=== PATIENT | female | born 1950 | race Caucasian/White ===

== ENCOUNTER 2020-01-05 19:44 | Observation (INO) | payer OTHER, SELFPAY ==
[2020-01-05] VITALS (8 sets, daily range): BP systolic 90–125; BP diastolic 56–81; PULSE 82–98; RESP 16–24; TEMP 37.5; O2SAT 88–96
--- NOTE | ~2020-01-05 | XR_ITS ---
EXAMINATION: XR chest 2V DATE: 01/05/2020 21:38 INDICATION: Midsternal chest pain and shortness of breath TECHNIQUE: AP and lateral views of the chest are obtained. COMPARISON: 12/10/2019 FINDINGS: The lungs are free of acute opacities. There is no pleural effusion or pneumothorax. The ca rdiomediastinal silhouette is normal. There is mild thoracic spondylosis. An implantable cardiac phyllis toring device is present in the subcutaneous tissues overlying the sternum. IMPRESSION: 1. No acute cardiopulmonary abnormality. Reviewed, dictated and finalized at location A. F CLERK
--- NOTE | ~2020-01-05 | CT_ITS ---
EXAMINATION: CTA chest PE abdomen pel DATE: 01/05/2020 22:28 INDICATION: Chest and epigastric abdominal pain TECHNIQUE: Computed tomography angiography (CTA) of the chest was performed with 100 mL Omnipaque-350 intravenous contrast timed to evaluate the pulmonary arteries. Subsequent postcontrast images of the abdomen and pelvis are obtained. Coronal maximum intensity projection 3D-reconstructions were create d by the technologist. The dose-length product (DLP) was 769.88 mGy-cm. Automated exposure control an d iterative reconstruction technique were employed. COMPARISON: None. FINDINGS: CTA CHEST: The pulmonary arteries are well-opacified. No pulmonary embolism is identified. Respirato ry motion artifact slightly limits the examination. Pulmonary nodules of the upper lobes measure up t o 5 mm. The lungs are free of acute opacities. There is no pleural effusion or pneumothorax. There is mild bilateral hilar and right paratracheal lymphadenopathy. ABDOMEN/PELVIS CT: The liver, spleen, pancreas, gallbladder, and adrenal glands are normal. Hypoatten uating lesions in the kidneys, measuring up to 4 mm on the right, are too small to characterize but l ikely represent cysts. There is an 11 mm nonobstructing stone of the right kidney lower pole. There i s a 7 mm stone in the right proximal ureter without significant hydroureteronephrosis. There is calci fied atherosclerosis of the aorta and many of the other arteries. No pathologically enlarged abdomina l or pelvic lymph nodes are identified. The appendix is normal. There is no free intraperitoneal gas or evidence of bowel obstruction. There is mild lumbar spondylosis. IMPRESSION: 1. No pulmonary embolism identified. 2. 7 mm stone in the right proximal ureter without significant hydroureteronephrosis. 3. Right nephrolithiasis. 4. Pulmonary nodules of the upper lobes measuring up to 5 mm. If the patient has no risk factors for malignancy, no further follow up is required. If there are risk factors for malignancy (i.e., histor y of smoking, asbestos or radiation exposure), consider followup CT in 12 months. 5. Mild bilateral hilar and right paratracheal lymphadenopathy, possibly reactive. Reviewed, dictated and finalized at location A. PATIONAL THERAPY ASSISTANT IMPRESSION: 1. No pulmonary embolism identified. 2. 7 mm stone in the right proximal ureter without significant hydroureteroneph rosis. 3. Right nephrolithiasis. 4. Pulmonary nodules of the upper lobes measuring up to 5 mm. If the patient casas s no risk factors for malignancy, no further follow up is required. If there a re risk factors for malignancy (i.e., history of smoking, asbestos or radiation exposure), consider followup CT in 12 months. 5. Mild bilateral hilar and right paratracheal lymphadenopathy, possibly reacti ve.
--- NOTE | 2020-01-05 20:11 | ECG_ITS ---
Measurements Intervals [place] Rate: 83 P: 105 [place]: 129 QRS: 163 QRSD: 130 T: 48 QT: 400 QTc: 472 Interpretive Statements SINUS RHYTHM ARM LEADS REVERSED RIGHT BUNDLE BRANCH BLOCK BASELINE WANDER- I, II ABNORMAL ECG Electronically Signed On 01-06-2020 10:48:03 [employer] MERCHANDISER by John Randolph D.O.
[2020-01-05] MEDS: ASPIRIN 81 MG CHEWABLE TABLET 324 MG PO (20:25)
--- NOTE | 2020-01-05 20:34 | ED.CHESTPAIN ---
HPI - Chest Pain General Chief Complaint: Chest Pain Stated Complaint: cp Time Seen by Provider: 01/05/20 20:34 Source: patient and family () Mode of arrival: EMS Limitations: no limitations History of Present Illness HPI narrative: A 69 y/o female presents to the ED, via EMS, with c/o intermittent nonradiating midsternal CP that she describes as twisting in character. Pt states that she woke up with the pain this morning. The pain will last for 5 minutes at a time and then resolve. Pt's last episode of the pain occurred 5-10 minutes ago. Pt denies a PSHx of a cholecystectomy and notes that her pain is worse when eating and drinking. Pt reports constipation and has been using a stool softener. Pt has a PMHx of an NM in July 2019 but her pain now feels different. Per , pt has been wearing a loop monitor for 3 months. Pt last saw her yacht builder at [facility] on (4 days ago). She reports SOB, a dry cough, and belching, but denies N/V, dizziness, fever, and a PSHx of a colonoscopy or an endoscopy. Pt is on ASA. Onset (ago): hour(s) Timing of current episode: episodic Pain location: other (midsternal) Pain radiation: none Related Data Home Medications Medication Instructions Recorded Confirmed albuterol sulfate 2 puff INHALATION BID 12/10/19 01/06/20 aspirin 81 mg PO DAILY 12/10/19 01/06/20 atorvastatin 80 mg PO 12/10/19 01/06/20 carbidopa-levodopa 1 tablet PO TID 12/10/19 01/06/20 clopidogrel [Plavix] 75 mg PO DAILY 12/10/19 01/06/20 diltiazem HCl 60 mg PO BID 12/10/19 01/06/20 fluoxetine 60 mg PO DAILY 12/10/19 01/06/20 fluticasone propionate 1 spray INTRANASAL DAILY 12/10/19 01/06/20 acetaminophen 1,000 mg PO BID PRN 12/11/19 01/06/20 magnesium oxide 400 mg PO BID 01/05/20 01/06/20 albuterol sulfate 2.5 mg INHALATION Q4H PRN 01/06/20 01/06/20 diazepam 10 mg PO HS 01/06/20 01/06/20 Allergies Allergy/AdvReac Type Severity Reaction Status Date / Time No Known Allergies Allergy Verified 10/24/19 20:49 Review of Systems Review of Systems: All systems reviewed & are unremarkable except as noted in HPI and below Constitutional: Constitutional: Denies fever(s) Comments: Denies: dizziness Cardiovascular: Cardiovascular: Reports chest pain (intermittent midsternal) Respiratory: Respiratory: Reports cough (dry) and Reports dyspnea Gastrointestinal: Gastrointestinal: Reports constipation, Denies nausea and Denies vomiting Comments: Reports: belching PMFSH Past Medical History Medical History Anxiety Cataracts, bilateral COPD (chronic obstructive pulmonary disease) CVA (cerebral vascular accident) 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, with the most recent CVA being July 2019 with right basal ganglia infarct and anterior limb of capsule the patient was hospitalized at [facility] and diagnosed with moyamoya Depression GERD (gastroesophageal reflux disease) Hyperlipidemia Kidney stone Parkinson disease Paroxysmal atrial fibrillation Normal EF of 63% noted on echo at time of her stroke Subarachnoid hemorrhage The patient had a fall while at [facility] 2 days after her CVA at which time she had 2 small traumatic subarachnoid hemorrhages right frontal, the patient was not started on Eliquis because her repeat CT demonstrated persistent subarachnoid hemorrhages on 08/25/2019 Urinary retention with incomplete bladder emptying UTI (urinary tract infection) Surgical History Surgical History H/O cardiac catheterization History of appendectomy History of loop recorder History of tonsillectomy History of total hysterectomy with bilateral salpingo-oophorectomy (BSO) Family History Family History Mother COPD (chronic obstructive pulmonary disease) Father COPD (chronic obstructive p
[2020-01-05 20:49] LABS: Basophils Percent Auto 0.3 % (0.2-1.2); Eosinophils Absolute Auto 0.4 K/mm3 (0-0.3); Eosinophils Percent Auto 6.3 % (0-4.4); Hematocrit 38.5 % (37.0-47.0); Immature Granulocyte Absolute 0.01 K/mm3 (0.00-0.031); Immature Granulocyte Percent A 0.2 % (0-0.5); Lymphocytes Absolute Auto 1.26 K/mm3 (0.9-3.2); Lymphocytes Percent Auto 20.5 % (18.3-44.2); Mean Corpuscular HGB Conc 31.2 g/dl (32-36); Mean Corpuscular Hemoglobin 29.2 pg (26-34); Mean Corpuscular Volume 93.7 fl (80-100); Mean Platelet Volume 9.8 fl (7.4-10.4); Monocytes Absolute Auto 0.6 K/mm3 (0.1-0.6); Monocytes Percent Auto 10.4 % (2.6-8.5); Neutrophils Absolute Auto 3.8 K/mm3 (1.3-6.7); Neutrophils Percent Auto 62.3 % (45.5-73.1); Platelet Count Result 239 k/mm3 (150-375); Red Blood Count 4.11 M/mm3 (4.2-5.4); Red Cell Distribution Width 13.6 % (11.5-14.5); White Blood Count 6.2 K/mm3 (4.5-10.0)
[2020-01-05 20:52] LABS: Base Excess ABG 0.4 mEq/l (+/-2.0); Fractional Inspired Oxygen 30 %; HCO3 ABG 24.6 mEq/l (22.0-26.0); Methemoglobin ABG 0.2 %THb (0-1.5); Oxygen Content ABG 17.1 %vol (16.0-22.0); Oxygen Saturation ABG 96.4 % (95.0-100.0); Oxyhemoglobin 95.6 % THb (90.0-100.0); PCO2 ABG 38.2 mmHg (35.0-45.0); PO2 FiO2 Ratio Arterial Blood 2.73 %; Reduced Hemoglobin 4.2 %THb (0-5.0); Total Hemoglobin 12.7 g/dL (12.0-18.0); pH ABG 7.427 (7.350-7.450)
[2020-01-05 20:54] LABS: Device NASAL CANNULA; Liters per Minute 2.5 LPM; Modified Allen's Test Pass; Site Drawn RIGHT RADIAL
[2020-01-05 21:00] LABS: Prothrombin Time 12.6 Seconds (11.1-14.7)
[2020-01-05 21:01] LABS: Partial Thromboplastin Time 25.8 SECONDS (22.3-36.8)
[2020-01-05 21:02] LABS: Lactic Acid Reflex 0.8 mmol/L (0.7-2.1)
[2020-01-05 21:03] LABS: Blood Urea Nitrogen 13 mg/dL (7-17); Calcium 8.9 mg/dL (8.4-10.2); Carbon Dioxide 24 mmol/L (22-30); Chloride 102 mmol/L (98-107); Estimated CRCL calculation 86 ml/min; Estimated Glomerular Filt Rate > 60; Glucose 108 mg/dL (65-105); Potassium 3.8 mmol/L (3.4-5.0); Sodium 139 mmol/L (137-145)
[2020-01-05] MEDS: IPRATROPIUM BR 0.02% INH SOLN 0.5 MG/2.5 ML VIAL INHALATION (21:07)
[2020-01-05] MEDS: ALBUTEROL SULFATE NEB 2.5 MG/0.5 ML INH 5 MG INHALATION (21:07)
[2020-01-05] MEDS: PANTOPRAZOLE SODIUM IV 40 MG VIAL IV PUSH (21:13)
[2020-01-05 21:15] LABS: Troponin I < 0.012 ng/mL (0.000-0.034)
[2020-01-05 21:31] LABS: Alanine Aminotransferase 18 U/L (4-35); Alkaline Phosphatase 85 U/L (38-126); Aspartate Amino Transferase 19 U/L (14-36); Bilirubin,Total 0.3 mg/dL (0.2-1.3); Lipase 248 U/L (23-300)
[2020-01-05] MEDS: BELLADONNA ALK/PHENOB ELIX 10 ML, MAG HYDROX/ALUMINUM HYD/SIMETH 30 ML, LIDOCAINE HCL 2... PO (23:32)
[2020-01-05 23:48] LABS: Troponin I < 0.012 ng/mL (0.000-0.034)
[2020-01-06] VITALS (15 sets, daily range): BP systolic 111–129; BP diastolic 47–76; PULSE 76–113; RESP 16–20; TEMP 36.2–36.6; O2SAT 93–100; BMI 28.0
--- NOTE | 2020-01-06 00:27 | ADMGEN ---
This patient, Miracle Castro, was admitted to IMU Room 200-01. Patient/family oriented to hospital policies and general routines including ID bracelet, bed and alarms, visiting hours, pain management, procedures, bathroom and other care routines, personal items, smoking policy, room service/diet, and visiting hours. Valuables list has been completed. Information on how to activate the Rapid Response Team has been discussed. Patient/Family are encouraged to report perceived risks to care and to ask questions if they do not understand what they are told or what they should do.
[2020-01-06] MEDS: IPRATROPIUM BR 0.02% INH SOLN 0.5 MG/2.5 ML VIAL INHALATION ×3 (01:37→14:18)
[2020-01-06] MEDS: ALBUTEROL SULFATE NEB 2.5 MG/0.5 ML INH 5 MG INHALATION ×3 (01:37→14:18)
[2020-01-06 02:51] LABS: Troponin I < 0.012 ng/mL (0.000-0.034)
--- NOTE | 2020-01-06 06:14 | PM.IMHP ---
H&P: HPI History of Present Illness Chief complaint: chest pain Narrative: Miracle Castro is a 69 year old female admitted with deep mid sternal chest pain 09/04. Pt associates the chest pain with belching and the pain went up her esophagus. Pt denies any cough, fever or wheezes or heart palpitation, Chest pain is resolved now. Pt sees cardiology in [facility]. Pt has a past medical history of CVA, COPD and paroxysmal atrial fibrillation. Pt saw her couturiere 4 days ago states had a similar chest pain on the day but thought it would go away. Pt had recently had a loop recorder on for investigation of heart arrthymia. Pt had a CT chest and abdomen- which showed no pE, 7 mm stone in the right proximal ureter without significant hydroureteronephrosis. 3. Right nephrolithiasis. 4. Pulmonary nodules of the upper lobes measuring up to 5 mm. 5. Reactive lymphadenopathy. EKG shows NSR. troponin x2 is negative. Review of Systems Review of Systems: All systems reviewed & are unremarkable except as noted in HPI and below Cardiovascular: Cardiovascular: Reports chest pain Respiratory: Respiratory: Denies chest congestion, Denies cough, Denies excessive phlegm production, Denies dyspnea and Denies wheezing Gastrointestinal: Gastrointestinal: Reports excessive flatus and Reports dyspepsia Genitourinary: Genitourinary: Denies no additional female genitourinary complaints Neurologic: Denies system reviewed and no additional complaints, except as documented Psychiatric: Psychiatric: Reports anxiety PMFSH Past Medical History Medical History Anxiety Cataracts, bilateral COPD (chronic obstructive pulmonary disease) CVA (cerebral vascular accident) 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, with the most recent CVA being July 2019 with right basal ganglia infarct and anterior limb of capsule the patient was hospitalized at [facility] and diagnosed with moyamoya Depression GERD (gastroesophageal reflux disease) Hyperlipidemia Kidney stone Parkinson disease Paroxysmal atrial fibrillation Normal EF of 63% noted on echo at time of her stroke Subarachnoid hemorrhage The patient had a fall while at [facility] 2 days after her CVA at which time she had 2 small traumatic subarachnoid hemorrhages right frontal, the patient was not started on Eliquis because her repeat CT demonstrated persistent subarachnoid hemorrhages on 08/25/2019 Urinary retention with incomplete bladder emptying UTI (urinary tract infection) Surgical History Surgical History H/O cardiac catheterization History of appendectomy History of loop recorder History of tonsillectomy History of total hysterectomy with bilateral salpingo-oophorectomy (BSO) Family History Family History Mother COPD (chronic obstructive pulmonary disease) Father COPD (chronic obstructive pulmonary disease) Sibling Acute myocardial infarction Social History Social History Social History: Code status: Full code per EMR Smoking packs per day: 1 Smoking cigarettes per day: 20.0 Years smoked: 52 Smoking pack-years: 52.00 Smoking status: Former smoker Tobacco type: cigarettes Second hand tobacco smoke exposure: No Smoking end date: 08/15/19 Alcohol intake: never Substance use: never Substance use type: does not use Additional living arrangements comments: Since her stroke her moved back into the house with her to take care of her. She ambulates with a walker at all times. 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
--- NOTE | 2020-01-09 16:55 | PM.DS ---
DS: Diagnosis Admitting Diagnosis Admitting Diagnosis: Chest pain, unspecified Discharge Diagnosis (1) Chest pain: Qualifiers: Chest pain type: unspecified Qualified Code(s): R07.9 - Chest pain, unspecified Code(s): R07.9 - Chest pain, unspecified Status: Acute Assessment and Plan: . Appeared to be more GERD related pt is on iv protonix, maybe discharged on PPI for GERD symptoms Serial troponins were negative and CTA of the chest revealed no emboli (2) Paroxysmal atrial fibrillation: Code(s): I48.0 - Paroxysmal atrial fibrillation Status: Acute Assessment and Plan: Pt is on telemetry, doing well. Remained in sinus rhythm and will continue on her diltiazem (3) COPD (chronic obstructive pulmonary disease): Code(s): J44.9 - Chronic obstructive pulmonary disease, unspecified Status: Acute Assessment and Plan: Chronic and stable continue pts inhalers DS: Summary Hospital Course Hospital Course: 61-year-old white female with history of paroxysmal atrial fib admitted with epigastric type pain and felt she should be observed for possible cardiac issue. Troponins were negative and CTA of the chest revealed no emboli. She was discharged home on Protonix PPI to follow up with her primary care Time Spent with Patient Time attestation: Total time spent providing and/or coordinating discharge services: 35 minutes Exam Narrative: Exam Narrative: Condition on discharge Blood pressure 124/76 pulse is 76 afebrile Lungs clear CV regular rate rhythm Abdomen soft nontender Extremities without edema Ambulating without assistance Discharge Plan Discharge Attending physician on discharge: Ephraim Woods Consulting providers: John Randolph ; Delbert Harrington Discharging Clinician: Ephraim Woods Patient Disposition: Home, Self-Care Activity: as tolerated Diet: low sodium and low cholesterol Patient Instructions: Pain Management (DC) Stand Alone Forms: General Discharge Information Follow-up/Referrals: UNKNOWN,DOCTOR [Non-Staff] - 1 Week (see primary physician and business operations consultant) Discharge Medications: New pantoprazole [Protonix] 40 mg tablet,delayed release (DR/EC) 40 mg PO QAM 42 Days Qty: 42 RF: 0 Continued atorvastatin 80 mg tablet 80 mg PO HS RF: 0 aspirin 81 mg tablet,delayed release (DR/EC) 81 mg PO DAILY RF: 0 albuterol sulfate 90 mcg/actuation HFA aerosol inhaler 2 puff INHALATION BID RF: 0 carbidopa-levodopa 25-100 mg tablet 1 tablet PO TID RF: 0 fluoxetine 20 mg capsule 60 mg PO DAILY RF: 0 fluticasone propionate 50 mcg/actuation spray,suspension 1 spray INTRANASAL DAILY RF: 0 clopidogrel [Plavix] 75 mg tablet 75 mg PO DAILY RF: 0 diltiazem HCl 60 mg Capsule,Extended Release 12 Hr 60 mg PO BID RF: 0 acetaminophen 500 mg Tablet 1,000 mg PO BID PRN (Reason: Pain) RF: 0 melatonin 3 mg Tablet 3 mg PO HS Qty: 30 RF: 0 sodium chloride [Saline Mist] 0.65 % Aerosol,[place] 1 spray intranasal Q6HR PRN (Reason: Congestion) Qty: 15 RF: 0 magnesium oxide 400 mg (241.3 mg magnesium) tablet 400 mg PO BID RF: 0 albuterol sulfate 2.5 mg /3 mL (0.083 %) Solution For Nebulization 2.5 mg INHALATION Q4H PRN (Reason: Shortness Of Breath) RF: 0 diazepam 10 mg Tablet 10 mg PO HS RF: 0 Date of admission: 01/05/20 23:26 Primary Care Provider: RodolfoIrene Admitting Provider: Janae Balbuena Discharge Date/Time: 01/06/20 14:30 Attending physician on admission: Ephraim Woods Condition: Stable Quality VTE Prophylaxis VTE prophylaxis: mechanical ordered
== END 2020-01-06 14:30 | disposition home or self-care (01) ==
LOC: ANHED 23:31 → ANHIMU 01-06 00:56
PROVIDERS: Emergency Medicine; Admitting Provider Family Medicine; Emergency Provider General Practice; PCP Internal Medicine Gastroenterology; Visit Provider Internal Medicine
DX: R07.9 Chest pain, unspecified (principal); I48.0 Paroxysmal atrial fibrillation; J44.1 Chronic obstructive pulmonary disease with (acute) exacerbation; N20.0 Calculus of kidney; F41.9 Anxiety disorder, unspecified; F32.9 Major depressive disorder, single episode, unspecified; E78.5 Hyperlipidemia, unspecified; G20 Parkinson's disease; R33.8 Other retention of urine; K21.9 Gastro-esophageal reflux disease without esophagitis; Z79.82 Long term (current) use of aspirin; Z79.899 Other long term (current) drug therapy; Z86.73 Personal history of transient ischemic attack (TIA), and cerebral infarction without residual deficits; Z86.79 Personal history of other diseases of the circulatory system; Z87.891 Personal history of nicotine dependence
CPT/HCPCS: 36415; 36600; 71046; 71275; 74177; 80048; 80076; 82375; 82805; 83050; 83605; 83690; 84484; 85025; 85610; 85730; 93005; 94640; 96374; 96375; 99285; A9270; C9113; G0378; G0379; J0131; Q9967

== ENCOUNTER 2020-02-04 14:30 | Emergency (ER) | payer OTHER, SELFPAY ==
--- NOTE | ~2020-02-04 | XR_ITS ---
XR chest 1V portable 02/04/2020 15:16 Indication: Slurred speech. Shortness of breath. History of CVA. Procedure: AP portable chest Comparison: Comparison to multiple prior studies sequentially, with oldest reviewed study dated 08/23. Findings: Heart size normal. No focal air space disease, pulmonary edema, pleural effusion or suspect ed pneumothorax. Impression: 1: No acute cardiopulmonary disease. Reviewed, dictated and finalized at location A. Impression: 1: No acute cardiopulmonary disease.
--- NOTE | ~2020-02-04 | CT_ITS ---
EXAMINATION: CTA brain carotid EXAM DATE: 02/04/2020 15:36 INDICATION: Slurred speech, right facial hemiparesis. TECHNIQUE: Spiral CTA of the carotid arteries was performed with intravenous injection 100 cc of Omn ipaque 350. Axial, coronal, sagittal reformatted images reviewed. Additional reformatted images crea daxa on dedicated 3-D workstation. NASCET comparable standard used to assess the degree of arterial s tenosis. Spiral CT angiogram cerebral arteries performed with the same intravenous injection of cont rast. Source images of the brain CTA transferred to dedicated workstation for 3-D rotational image cr eation. Coronal, sagittal maximum intensity pixel images also reviewed. The dose-length product (DL P) for this examination was 1179.63 mGy-cm. The exposure was tailored according to patient size, an d iterative reconstruction (ASIR) was used as additional dose reduction technique. There is no prio r study for comparison. FINDINGS: There is minimal left carotid bulb arterial sclerosis with 0% stenosis bilaterally. Mild bi lateral carotid siphon arterial sclerosis without stenosis. Multiple regions of proximal cerebral art brandie narrowings from atherosclerosis, with completely occluded or severely stenotic left M1 segment. T here is corresponding decreased arborization of left M1 temporal branches compared to contralateral s michael. The right anterior cerebral artery is predominantly supplied through the anterior communicating artery. There is no carotid or vertebral basilar arterial dissection or fibromuscular dysplasia. The re are no cerebral artery aneurysms. The sagittal, transverse and sigmoid sinuses enhance normally, n o venous sinus thrombosis. Internal cerebral veins also enhance normally. Age-related intracranial fi ndings. Old caudate, basal ganglia infarctions. Cataract surgery. Respiratory motion, but small sever al small pulmonary nodules identified could be infectious or postinfectious. IMPRESSION: 1. Nonopacified left M1 segment, either completely occluded or severely stenotic with decreased temp oral arborization distally. Uncertain whether or not this is acute or chronic finding. 2. Moderate scattered proximal cerebral arterial atherosclerosis. 3. Old bilateral caudate, basal ganglia infarctions. 4. No cervical arterial dissection or cerebral artery aneurysm. Bilateral carotid 0% stenosis. 5. Some small apical pulmonary nodules probably infectious or postinfectious. I discussed left M1 finding with Dr. Damaris Chairez MD at 02/04/2020 15:55 CDT. Reviewed, dictated and finalized at location B. IMPRESSION: 1. Nonopacified left M1 segment, either completely occluded or severely stenot ic with decreased temporal arborization distally. Uncertain whether or not this is acute or chronic finding. 2. Moderate scattered proximal cerebral arterial atherosclerosis. 3. Old bilateral caudate, basal ganglia infarctions. 4. No cervical arterial dissection or cerebral artery aneurysm. Bilateral kaba tid 0% stenosis. 5. Some small apical pulmonary nodules probably infectious or postinfectious. I discussed left M1 finding with Dr. Damaris Chairez MD at 02/04/2020 15:55 CDT.
--- NOTE | ~2020-02-04 | CT_ITS ---
EXAMINATION: CT brain wo con DATE: 02/04/2020 14:41 INDICATION: Slurred speech, right facial droop, difficulty walking. Dizziness. Code. TECHNIQUE: Computed tomography (CT) of the head was performed without intravenous contrast. The mA wa s adjusted according to patient size. Iterative reconstruction technique was employed. Exam dose: 52 9.67 mGy-cm total exam DLP. COMPARISON: 08/25/2019 CT brain FINDINGS: There is a prominent right basal ganglia old infarct, involving the adjacent anterior limb of the right internal capsule. Chronic infarcts of the left basal ganglia and anterior limb of left i nternal capsule.. No intracranial mass lesion or hemorrhage is evident. Recent cerebrovascular accident is not evident, but CT is not sensitive for detection of hyperacute ischemic infarct. No intracranial mass lesion or hemorrhage, midline shift or mass effects. There is preferential frontal cortical cerebral atrophy. There is cerebral atherosclerotic calcification involving the carotid siphons. There is nonspecific d iminished attenuation of the cerebral white matter, likely due to chronic small vessel ischemic baker es. No subdural or epidural hematoma is detected. No skull fracture or bone destruction is evident. Left mastoid air cells and included paranasal sinus es are unremarkable. The right mastoid air cells are not well-developed. IMPRESSION: Old bilateral basal ganglia and anterior limb internal capsule infarcts Cerebral atherosclerosis and chronic small vessel ischemic changes of the cerebral white matter Cerebral atrophy affecting particularly the frontal lobes Dr. Venegas telephoned the report to emergency room physician Dr. Chairez on 02/04/2020 at 1352 hours Reviewed, dictated and finalized at Location A. Reviewed, dictated and finalized at location A. IMPRESSION: Old bilateral basal ganglia and anterior limb internal capsule inf arcts Cerebral atherosclerosis and chronic small vessel ischemic changes of the cereb ral white matter Cerebral atrophy affecting particularly the frontal lobes Dr. Venegas telephoned the report to emergency room physician Dr. Chairez on 02/04/20 20 at 1352 hours
--- NOTE | 2020-02-04 14:33 | ECG_ITS ---
Measurements Intervals [place] Rate: 53 P: 93 AL: 139 QRS: 135 QRSD: 141 T: 52 QT: 459 QTc: 432 Interpretive Statements SINUS BRADYCARDIA ARM LEADS REVERSED RIGHT BUNDLE BRANCH BLOCK BASELINE WANDER- III, AVF, V2 ABNORMAL ECG Electronically Signed On 02-04-2020 14:56:33 CDT by John Randolph D.O.
[2020-02-04 14:42] VITALS: BP 127/46; PULSE 56; RESP 17; O2SAT 97
[2020-02-04 14:50] VITALS: TEMP 36.6
[2020-02-04 14:54] LABS: Basophils Absolute Auto 0.1 K/mm3 (0.0-0.1); Basophils Percent Auto 0.7 % (0.2-1.2); Eosinophils Absolute Auto 0.3 K/mm3 (0-0.3); Eosinophils Percent Auto 4.6 % (0-4.4); Hematocrit 39.2 % (37.0-47.0); Hemoglobin 12.2 g/dL (12.0-15.0); Immature Granulocyte Absolute 0.02 K/mm3 (0.00-0.031); Immature Granulocyte Percent A 0.3 % (0-0.5); Lymphocytes Absolute Auto 1.59 K/mm3 (0.9-3.2); Mean Corpuscular HGB Conc 31.1 g/dl (32-36); Mean Corpuscular Hemoglobin 28.6 pg (26-34); Mean Corpuscular Volume 91.8 fl (80-100); Mean Platelet Volume 10.3 fl (7.4-10.4); Monocytes Absolute Auto 0.6 K/mm3 (0.1-0.6); Monocytes Percent Auto 8.3 % (2.6-8.5); Neutrophils Absolute Auto 4.7 K/mm3 (1.3-6.7); Neutrophils Percent Auto 64.1 % (45.5-73.1); Platelet Count Result 223 k/mm3 (150-375); Red Blood Count 4.27 M/mm3 (4.2-5.4); Red Cell Distribution Width 13.3 % (11.5-14.5); White Blood Count 7.2 K/mm3 (4.5-10.0)
[2020-02-04 15:04] LABS: INR 1.1; Prothrombin Time 13.4 Seconds (11.1-14.7)
[2020-02-04 15:05] LABS: Partial Thromboplastin Time 27.2 SECONDS (22.3-36.8)
--- NOTE | 2020-02-04 15:05 | ED.NEUROSD ---
HPI - Neuro Symptoms/Deficit General Chief Complaint: Neuro Symptoms/Deficit Stated Complaint: CVA symptoms Time Seen by Provider: 02/04/20 14:51 Source: patient Mode of arrival: ambulatory Limitations: no limitations History of Present Illness HPI Narrative: Pt is a 69 y/o female who has a H/o CVA, that presents to the ED with c/o slurred speech, right facial drooping, and unsteady gait that was noticed 30 minutes ago. Pt's spouse states that was in the middle of speech therapy when he noticed her Sx. He brought her in the ED to see if she was having another stoke. Pt had a stroke on 08/14/19 and she has residual lt-sided weakness. She was at [facility] for 1 week and was in rehab for 2 weeks. Her neurologist is Dr. Hernandez. Per spouse, pt's speech is back to normal. Pt reports SOB and weakness, but she denies numbness/tingling to her face. She had half of an egg breakfast sandwich this morning. She normally uses a walker to get around. Pt quit smoking after her last stroke and she denies drinking EtOH. Pt has a loop recorder and takes ASA 81mg daily. Onset (ago): minute(s) (30) Time: 14:20 Timing confirmed by: spouse Location: speech and right face History of same: Yes Severity: similar to previous episodes Relieving factors: time Context: sudden onset On Anticoagulants: Yes (ASA 81mg) Associated symptoms: shortness of breath, weakness and other (unsteady gait) Related Data Home Medications Medication Instructions Recorded Confirmed albuterol sulfate 2 puff INHALATION BID 12/10/19 01/06/20 aspirin 81 mg PO DAILY 12/10/19 01/06/20 atorvastatin 80 mg PO HS 12/10/19 01/06/20 carbidopa-levodopa 1 tablet PO TID 12/10/19 01/06/20 clopidogrel [Plavix] 75 mg PO DAILY 12/10/19 01/06/20 diltiazem HCl 60 mg PO BID 12/10/19 01/06/20 fluoxetine 60 mg PO DAILY 12/10/19 01/06/20 fluticasone propionate 1 spray INTRANASAL DAILY 12/10/19 01/06/20 acetaminophen 1,000 mg PO BID PRN 12/11/19 01/06/20 magnesium oxide 400 mg PO BID 01/05/20 01/06/20 albuterol sulfate 2.5 mg INHALATION Q4H PRN 01/06/20 01/06/20 diazepam 10 mg PO HS 01/06/20 01/06/20 Allergies Allergy/AdvReac Type Severity Reaction Status Date / Time No Known Allergies Allergy Verified 10/24/19 20:49 Review of Systems Review of Systems: All systems reviewed & are unremarkable except as noted in HPI and below Constitutional: Constitutional: Reports weakness Respiratory: Respiratory: Reports dyspnea Neurologic: Reports Abnormal speech present (slurred), Reports abnormal gait, Denies numbness, Denies tingling and Reports other (rt facial droop) [facility] Past Medical History Medical History Anxiety Cataracts, bilateral COPD (chronic obstructive pulmonary disease) CVA (cerebral vascular accident) 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, with the most recent CVA being July 2019 with right basal ganglia infarct and anterior limb of capsule the patient was hospitalized at [facility] and diagnosed with moyamoya Depression GERD (gastroesophageal reflux disease) Hyperlipidemia Kidney stone Parkinson disease Paroxysmal atrial fibrillation Normal EF of 63% noted on echo at time of her stroke Subarachnoid hemorrhage The patient had a fall while at [facility] 2 days after her CVA at which time she had 2 small traumatic subarachnoid hemorrhages right frontal, the patient was not started on Eliquis because her repeat CT demonstrated persistent subarachnoid hemorrhages on 08/25/2019 Urinary retention with incomplete bladder emptying UTI (urinary tract infection) Surgical History Surgical History H/O cardiac catheterization History of appendectomy History of loop recorder History of tonsillectomy History of total hysterectomy with bilateral salpingo-oophorectomy (BSO) Social History Social History (Reviewed 02/04/20 @ 15:56 by Dorian
[2020-02-04 15:06] LABS: Blood Urea Nitrogen 14 mg/dL (7-17); Calcium 9.1 mg/dL (8.4-10.2); Carbon Dioxide 28 mmol/L (22-30); Chloride 104 mmol/L (98-107); Estimated CRCL calculation 74 ml/min; Estimated Glomerular Filt Rate > 60; Glucose 104 mg/dL (65-105); Potassium 3.9 mmol/L (3.4-5.0); Sodium 140 mmol/L (137-145)
[2020-02-04 15:19] LABS: Troponin I < 0.012 ng/mL (0.000-0.034)
[2020-02-04 17:05] VITALS: BP 139/94; PULSE 46; RESP 16; O2SAT 97
[2020-02-04] MEDS: ALBUTEROL SULFATE NEB 2.5 MG/0.5 ML INH 5 MG INHALATION (18:00)
[2020-02-04 19:21] LABS: Glucose Point of Care 97 (65-105)
== END 2020-02-04 18:40 | disposition short-term general hospital (02) ==
PROVIDERS: Emergency Medicine; Emergency Provider Emergency Medicine
DX: I63.9 Cerebral infarction, unspecified (principal); J44.9 Chronic obstructive pulmonary disease, unspecified; E78.5 Hyperlipidemia, unspecified; K21.9 Gastro-esophageal reflux disease without esophagitis; G20 Parkinson's disease; I48.0 Paroxysmal atrial fibrillation; I69.354 Hemiplegia and hemiparesis following cerebral infarction affecting left non-dominant side; F41.9 Anxiety disorder, unspecified; F32.9 Major depressive disorder, single episode, unspecified; Z79.82 Long term (current) use of aspirin; Z79.02 Long term (current) use of antithrombotics/antiplatelets; Z87.440 Personal history of urinary (tract) infections; Z87.442 Personal history of urinary calculi; Z87.891 Personal history of nicotine dependence; H26.9 Unspecified cataract; R00.1 Bradycardia, unspecified; I45.10 Unspecified right bundle-branch block; R29.702 NIHSS score 2
CPT/HCPCS: 36415; 70450; 70496; 70498; 71045; 80048; 82948; 84484; 85025; 85610; 85730; 93005; 99285; Q9967

== ENCOUNTER 2020-02-09 13:15 | Outpatient (RCR) | payer OTHER, SELFPAY ==
--- NOTE | 2020-01-20 14:46 | STOPEVAL ---
SPEECH THERAPY INITIAL EVALUATION; Thank you for referring this patient to [facility]. Upon completion of cognitive linguistic evaluation, it has been determined that pt would benefit from Speech Therapy x2 week 4 to improve the areas of memory, thought organization, auditory processing, and problem solving. Please review, sign, date and return this plan of care YISEL. I agree with and certify that the following plan of care is medically necessary. Referring Physician Date Admitting Provider: Attending Provider: Patricia Giron, MYRNA Referring Provider: STERLING Outpatient Evaluation Start: 01/20/20 13:37 Freq: Status: Active Protocol: Document 01/20/20 13:30 BECHERERT (Rec: 01/20/20 14:46 BECHERERT [email or web address]) Therapy Assessment Status Assessment Status Assessment Status Evaluation Outpatient Past Medical History Neurological History Hx Cerebrovascular Accident (CVA) Yes: Aug 14, 2019 Hx Parkinson's Disease Yes Cardiovascular History Hx Cardiac Arrhythmia Yes Hx Coronary Artery Disease Yes: coronary arteriosclerosis Hx Other Cardiac Disorders Yes: cardiac arrhythmia Respiratory History Hx Chronic Obstructive Pulmonary Disease Yes (COPD) Gastrointestinal History Hx Esophageal Disorders Yes Hx Gastroesophageal Reflux Disease Yes Genitourinary History Hx Urinary Tract Infection Yes Hx Other Genitourinary Disorders Yes Musculoskeletal History Hx Back Pain Yes Reproductive History Hx Hysterectomy Yes Psychosocial History Hx Psychiatric Treatment Yes: Sees psychiatrist Other History Hx Implanted Device Yes: loop recorder Evaluation Information Problem Diagnosis history of CVA Onset July 2019 Additional Evaluation Detail The pt is but lives alone; she and her live apart but he assists her with medication management, transportation, shopping. She also has hired assist for laundry, cleaning, & money management. Subjective Information Miracle is here today several Query Text:As Reported By Patient/ months after CVA affecting Family cognitive linguistic function. She did rehab for 2 weeks and started outpatient therapy in October 2019. She then contracted pneumonia and has been in and out of the hospital. Prior Level of Function Activity Level (Last 3 Months) Functional Cognition (Planning, Shopping Needs Some Help , Taking Medications)
--- NOTE | 2020-01-20 15:22 | OTOPEVAL ---
OCCUPATIONAL THERAPY EVALUATION AND DISCHARGE REPORT 01/20/2020 Thank you for referring this patient to [facility]. As described below, no skilled OT is indicated at this time. Please review, sign, date and return this evaluation and discharge YISEL. I agree with and certify that the following plan of care is medically necessary. Referring Physician Date Referring Provider: Patricia Giron, PA *OT Outpatient Evaluation Start: 01/20/20 14:10 Freq: Status: Active Protocol: Document 01/20/20 14:10 ARLENE (Rec: 01/20/20 15:22 ARLENE [email or web address]) Therapy Assessment Status Assessment Status Assessment Status Evaluation Outpatient Past Medical History Neurological History Hx Cerebrovascular Accident (CVA) Yes: Aug 14, 2019 Hx Parkinson's Disease Yes Cardiovascular History Hx Cardiac Arrhythmia Yes Hx Coronary Artery Disease Yes: coronary arteriosclerosis Hx Other Cardiac Disorders Yes: cardiac arrhythmia Respiratory History Hx Chronic Obstructive Pulmonary Disease Yes (COPD) Gastrointestinal History Hx Esophageal Disorders Yes Hx Gastroesophageal Reflux Disease Yes Genitourinary History Hx Urinary Tract Infection Yes Hx Other Genitourinary Disorders Yes Musculoskeletal History Hx Back Pain Yes Reproductive History Hx Hysterectomy Yes Psychosocial History Hx Psychiatric Treatment Yes: Sees psychiatrist Other History Hx Implanted Device Yes: loop recorder Evaluation Information Problem Diagnosis s/p CVA Onset August 14, 2019 Subjective Information Miracle is here today several Query Text:As Reported By Patient/ months after CVA affecting the Family left sided strength. She did rehab for 2 weeks and started outpatient therapy in October 2019. She then contracted pneumonia and has been in and out of the hospital. Prior Level of Function Activity Level (Last 3 Months) Activity of Daily Living Ability Independent Cooking No Cleaning No Laundry No Shopping No Driving No Home Setting Home Type Apartment Environmental Barriers Elevator,Stairs, Greater than 4 Living Situation Alone Support Available Local Family Support Mobility Assistive Devices (Used Last 3 Walker, Wheeled Months) Bathroom Environment Tub/Shower, Curtain Bathing Equipment
--- NOTE | 2020-01-20 16:42 | PTOPEVAL ---
PHYSICAL THERAPY EVALUATION AND PLAN OF CARE Thank you for referring this patient to [facility]. Miracle will be seen in PT 2x/week for 4 weeks. Please review, sign, date and return this plan of care YISEL. I agree with and certify that the following plan of care is medically necessary. Referring Physician Date Attending Provider: Patricia Giron, PA Evaluation Outpatient Past Medical History Neurological History Hx Cerebrovascular Accident (CVA) Yes: Aug 14, 2019 Hx Parkinson's Disease Yes Cardiovascular History Hx Cardiac Arrhythmia Yes Hx Coronary Artery Disease Yes: coronary arteriosclerosis Hx Other Cardiac Disorders Yes: cardiac arrhythmia Respiratory History Hx Chronic Obstructive Pulmonary Disease Yes (COPD) Gastrointestinal History Hx Esophageal Disorders Yes Hx Gastroesophageal Reflux Disease Yes Genitourinary History Hx Urinary Tract Infection Yes Hx Other Genitourinary Disorders Yes Musculoskeletal History Hx Back Pain Yes Reproductive History Hx Hysterectomy Yes Psychosocial History Hx Psychiatric Treatment Yes: Sees phschiatrist Other History Hx Implanted Device Yes: loop recorder Evaluation Information Diagnosis history of CVA Onset July 2019 Additional Evaluation Detail 125/72; 78bpm Subjective Information Miracle is here today several Query Text:As Reported By Patient/ months after CVA affecting the Family left sided strength. She did rehab for 2 weeks and started outpatient therapy in October 2019. She then contracted pneumonia and has been in and out of the hospital. States she feels tired today. Would normally be using a walker, but forgot it today. Reports that she currently uses a shower chair, but would like to be able to get into and out of the bathtub to take a bath. Her friend reports that she will sometimes forget her walker and walk around the apartment. She would like to be able to walk with a cane again. Prior Level of Function Home Setting Home Type Apartment Environmental Barriers Elevator,Stairs, Greater than 4 Living Situation Alone Support Available Loc
--- NOTE | 2020-02-03 11:12 | PCSTNOTE ---
Due to scheduling conflicts, pt has not been seen x2/week. Pt only desires afternoon appointments which challenges the recommended x2/week.
--- NOTE | 2020-02-05 07:32 | PCSTNOTE ---
Upon leaving after session, the pt's spouse stated that she seemed weaker and her face seemed to have a droop. Pt stopped and rested and appeared more confused. Spouse feared she may be having a stroke. They were asked multiple times if an ambulance should be called for her. Spouse and pt declined. They were encouraged to go to the ER which her spouse stated they would do.
--- NOTE | 2020-02-06 11:16 | PCSTNOTE ---
Patient called & cancelled scheduled appointment this date due to having a TIA.]
--- NOTE | 2020-02-13 08:53 | PCPTNOTE ---
Patient called & cancelled scheduled appointment this date due to Covid 19.
--- NOTE | 2020-02-16 12:50 | PCSTNOTE ---
Patient did not show up for scheduled appointment this date.
--- NOTE | 2020-02-17 15:50 | PCPTNOTE ---
Patient called & cancelled scheduled appointment on 02/19/2020 due to COVID-19 precautions.
--- NOTE | 2020-03-08 13:29 | PCPTNOTE ---
PHYSICAL THERAPY DISCHARGE NOTIFICATION Attending Provider: Patricia Giron, PA Patient:Miracle Castro Date of :1950 Miracle cancelled her last remaining appointments due to COVID-19 precautions. We will be happy to work with her in the future, but at this time her chart will be discharged. The goals have not been assessed. Thank you for referring this patient to [facility]. Please review, sign, date and return this discharge summary YISEL. I have been updated about the patient's current status and I agree with discharge from the above service at this time. Referring Physician Date
== END 2020-03-09 08:33 | disposition home or self-care (01) ==
LOC: ANHPT 13:15
PROVIDERS: PCP Internal Medicine Gastroenterology; Visit Provider Physician Assistant
DX: Z86.73 Personal history of transient ischemic attack (TIA), and cerebral infarction without residual deficits (principal)
CPT/HCPCS: 96125; 97110; 97129; 97130; 97162; 97165

== ENCOUNTER 2020-08-27 14:00 | Outpatient (RCR) | payer OTHER, SELFPAY | END 2020-08-27 23:59 | disposition home or self-care (01) | LOC: ANHAUDIO 14:00 | PROVIDERS: PCP Internal Medicine Gastroenterology; Visit Provider Internal Medicine Gastroenterology | DX: Z46.1 Encounter for fitting and adjustment of hearing aid (principal) | CPT/HCPCS: 99199 ==

== ENCOUNTER 2020-10-01 12:13 | Observation (INO) | payer OTHER, SELFPAY ==
[2020-10-01] VITALS (19 sets, daily range): BP systolic 94–115; BP diastolic 46–67; PULSE 76–93; RESP 16–24; TEMP 36.1–36.7; O2SAT 95–100; BMI 30.3
--- NOTE | ~2020-10-01 | XR_ITS ---
EXAMINATION: XR retrograde pyelo w/stent RT DATE: 10/01/2020 07:55 INDICATION: Cystoscopy and retrograde right ureteral stent placement TECHNIQUE: A total of 28 fluoroscopic images of the abdomen and pelvis were obtained during procedure performed by Dr. Loza. Radiologist was not present for the imaging or procedure. The amount of fl uoroscopy time used during this procedure was 0.2 minutes. COMPARISON: CT dated 01/05/2020 FINDINGS: A larger stone is again seen projecting over the lower pole of the right kidney on the init ial image. A reported right ureteral stone is not definitively identified. Retrograde contrast inject ions into the right ureter and renal collecting system demonstrates irregular mucosal contour of the distal ureter which may reflect inflammation related to the reported stone. Subsequent images demonst rate a wire advanced into a superior calyx of the right kidney. Final image demonstrates the distal e nd of a ureteral stent with loops formed in the bladder. IMPRESSION: 1. Fluoroscopy utilized during right retrograde pyelogram and internal ureteral stent placement. 2. Large stone at the lower pole of the right kidney. Mucosal irregularity along the distal right ure ter which may reflect inflammation related to reported distal right ureteral stone which is not defin itively identified on the provided images. See procedure note for further detail. Reviewed, dictated and finalized at location A. NG EXAMINER IMPRESSION: 1. Fluoroscopy utilized during right retrograde pyelogram and internal ureteral stent placement. 2. Large stone at the lower pole of the right kidney. Mucosal irregularity sotero g the distal right ureter which may reflect inflammation related to reported di stal right ureteral stone which is not definitively identified on the provided images. See procedure note for further detail.
--- NOTE | ~2020-10-01 | XR_ITS ---
EXAMINATION: XR chest 1V portable INDICATION: Shortness of breath TECHNIQUE: Portable AP chest at 1539 hours COMPARISON: 02/04/2020 FINDINGS: The heart size is normal. There has been interval insertion of a dual lead pacemaker in the left chest wall. The lungs are free of acute opacities. There is no pleural effusion or pneumothorax . IMPRESSION: 1. No acute cardiopulmonary abnormality. 2. Interval pacemaker insertion. Reviewed, dictated and finalized at location A. SVERSE ABDOMINAL MUSCLE SURGEON
--- NOTE | 2020-10-01 04:16 | ECHO_ITS ---
Patient Info Name: Miracle Castro Age: 70 years : 1950 Gender: Female Ht: 62 in Wt: 166 lbs BSA: 1.84 m2 HR: 88 bpm BP: 111 / 53 mmHg Technical Quality: Good Exam Date: 10/01/2020 11:55 AM Exam Location: [facility] Patient Status: Inpatient Admit Date: 10/01/2020 Staff Ordering Physician: Erik Oconnell MD Bathhouse Keeper: Go Boateng RDCS, RT Attending Provider: Erik Oconnell MD Referring Physician: Emilio Loza MD; Exam Type: CA echo doppler color flow Study Info Indications I48.1 - Persistent atrial fibrillation Strain analysis performed. Complete two-dimensional, color flow and Doppler transthoracic echocardiogram is performed. Summary 1. Complete two-dimensional, color flow and Doppler transthoracic echocardiogram is performed. 2. Left ventricular chamber dimension is normal. 3. Left ventricular systolic function is normal, estimated at 55-60%. 4. The left ventricular diastolic function is grade III diastolic dysfunction. 5. E/e' 11 is mildly elevated. 6. Global longitudinal strain is abnormal at -14.0%. 7. Right ventricular systolic function is reduced with abnormal TAPSE at 1.5 cm. 8. There is mild to moderate mitral valve regurgitation. 9. There is trace tricuspid valve regurgitation. 10. Dilated inferior vena cava with >50% collapse upon inspiration consistent with elevated right atrial pressure, 10 mmHg. Left Ventricle E/e' 11 is mildly elevated. Global longitudinal strain is abnormal at -14.0%. Left ventricular chamber dimension is normal. Left ventricular systolic function is normal, estimated at 55-60%. The left ventricular diastolic function is grade III diastolic dysfunction. Right Ventricle Right ventricular systolic function is reduced with abnormal TAPSE at 1.5 cm. Right ventricular chamber dimension is not well visualized. Left Atria Left atrial chamber dimension is normal. Right Atria Right atrial chamber dimension is normal. Aortic Valve The aortic valve is not well visualized. Cannot determine number of aortic valve leaflets. There is no gross aortic valve stenosis. There is no aortic valve regurgitation. Pulmonic Valve There is no pulmonic regurgitation. Mitral Valve There is no mitral valve stenosis. There is mild to moderate mitral valve regurgitation. Tricuspid Valve There is trace tricuspid valve regurgitation. RVSP is not calculated due to an inadequate TR jet. Pericardium/Pleural There is no pericardial effusion. Inferior Vena Cava Dilated inferior vena cava with >50% collapse upon inspiration consistent with elevated right atrial pressure, 10 mmHg. Aorta The aortic root size at the sinus of Valsalva is normal. Left Ventricular Outflow Tract Name Value Normal LVOT 2D LVOT Diameter 1.9 cm LVOT Doppler LVOT Peak Gradient 2 mmHg LVOT Mean Gradient 1 mmHg LVOT VTI 15 cm LVOT VTI/AV VTI Ratio 0.5 LVOT Stroke Volume 41 ml LVOT CO 3.3
--- NOTE | 2020-10-01 04:24 | ADMGEN ---
This patient, Miracle Castro, was admitted to IMU Room 201-01. Patient/family oriented to hospital policies and general routines including ID bracelet, bed and alarms, visiting hours, pain management, procedures, bathroom and other care routines, personal items, smoking policy, room service/diet, and visiting hours. Information on how to activate the Rapid Response Team has been discussed. Patient/Family are encouraged to report perceived risks to care and to ask questions if they do not understand what they are told or what they should do.
[2020-10-01 05:33] LABS: Basophils Absolute Auto 0.1 K/mm3 (0.0-0.1); Basophils Percent Auto 0.5 % (0.2-1.2); Eosinophils Percent Auto 0.3 % (0-4.4); Hemoglobin 9.6 g/dL (12.0-15.0); Immature Granulocyte Absolute 0.03 K/mm3 (0.00-0.031); Immature Granulocyte Percent A 0.3 % (0-0.5); Lymphocytes Absolute Auto 2.94 K/mm3 (0.9-3.2); Lymphocytes Percent Auto 26.7 % (18.3-44.2); Mean Corpuscular Hemoglobin 24.5 pg (26-34); Mean Corpuscular Volume 79.1 fl (80-100); Monocytes Percent Auto 17.7 % (2.6-8.5); Neutrophils Percent Auto 54.5 % (45.5-73.1); Platelet Count Result 254 k/mm3 (150-375); Red Blood Count 3.92 M/mm3 (4.2-5.4); Red Cell Distribution Width 15.5 % (11.5-14.5)
[2020-10-01 05:43] LABS: Anion Gap 9 mmol/L (8-16); Blood Urea Nitrogen 17 mg/dL (7-17); Calcium 8.5 mg/dL (8.4-10.2); Carbon Dioxide 25 mmol/L (22-30); Chloride 105 mmol/L (98-107); Estimated CRCL calculation 62 ml/min; Estimated Glomerular Filt Rate > 60; Glucose 122 mg/dL (65-105); Magnesium 2.2 mg/dL (1.6-2.3); Potassium 3.6 mmol/L (3.4-5.0); Sodium 139 mmol/L (137-145)
[2020-10-01] MEDS: LACTATED RINGERS 1,000 ML 30 ML IV CONT (06:50)
--- NOTE | 2020-10-01 07:03 | WPDANESEPPF ---
Anes - Initial Pre Proc Eval Procedure: Operation Date: 10/01/20 07:30 Proposed Procedures p Cystoscopy, Right Stent Placement(Right) - Emilio Loza MD Date/Time: 10/01/20 07:03 Surgeon: Erik Oconnell MD Pre Op Diagnosis: Afib with RVR, renal stone Patient Data Age: 70 Gender: F Height: 1.57 m Weight: 75.3 kg Last Vital Signs Temp 36.2 C L 10/01/20 04:12 Pulse 86 10/01/20 06:03 Resp 18 10/01/20 04:12 BP 111/53 L 10/01/20 06:03 Pulse Ox 95 10/01/20 04:12 Allergies Allergy/AdvReac Type Severity Reaction Status Date / Time codeine Allergy Rash Verified 10/01/20 04:35 nitrofurantoin Allergy Unknown Verified 10/01/20 04:35 [From Macrobid] Home Medications Medication Instructions Recorded Confirmed Type albuterol sulfate 2 puff INHALATION Q4H PRN 12/10/19 10/01/20 History atorvastatin 80 mg PO HS 12/10/19 10/01/20 History carbidopa-levodopa 1 tablet PO TID 12/10/19 10/01/20 History clopidogrel [Plavix] 75 mg PO DAILY 12/10/19 10/01/20 History diltiazem HCl 60 mg PO TID 12/10/19 10/01/20 History fluoxetine 60 mg PO DAILY 12/10/19 10/01/20 History fluticasone propionate 1 spray INTRANASAL DAILY 12/10/19 10/01/20 History acetaminophen 1,000 mg PO BID PRN 12/11/19 10/01/20 History melatonin 3 mg PO HS #30 tablet 12/16/19 10/01/20 Rx sodium chloride [Saline Mist] 1 spray INTRANASAL Q6HR PRN #15 ml 12/16/19 10/01/20 Rx magnesium oxide 400 mg PO BID 01/05/20 10/01/20 History albuterol sulfate 2.5 mg INHALATION Q4H PRN 01/06/20 10/01/20 History diazepam 10 mg PO TID 01/06/20 10/01/20 History pantoprazole [Protonix] 40 mg PO QAM 42 Days #42 tablet 01/06/20 10/01/20 Rx cetirizine [Zyrtec] 10 mg PO DAILY 10/01/20 10/01/20 History tiotropium bromide [Spiriva with 18 mcg INHALATION DAILY 10/01/20 10/01/20 History HandiHaler] Laboratory Tests 10/01/20 10/01/20 10/01/20 04:55 04:55 04:55 WBC 11.0 K/mm3 H K/mm3 (4.5-10.0) RBC 3.92 M/mm3 L M/mm3 (4.2-5.4) Hgb 9.6 g/dL L g/dL (12.0-15.0) Hct 31.0 % L % (37.0-47.0) MCV 79.1 fl L fl (80-100) MCH 24.5 pg L pg (26-34) MCHC 31.0 g/dl L g/dl (32-36) RDW 15.5 % H % (11.5-14.5) Plt Count 254 k/mm3 k/mm3 (150-375) MPV 10.0 fl fl (7.4-10.4) Immature Gran % (Auto) 0.3 % % (0-0.5) Neut % (Auto) 54.5 % % (45.5-73.1) Lymph % (Auto) 26.7 % % (18.3-44.2) [place] % (Auto) 17.7 % H % (2.6-8.5) Eos % (Auto) 0.3 % % (0-4.4) Baso % (Auto) 0.5 % % (0.2-1.2) Lymph # (Auto) 2.94 K/mm3 K/mm3 (0.9-3.2) Marathon # (Auto) 2.0 K/mm3 H K/mm3 (0.1-0.6) Eos # (Auto) 0.0 K/mm3 K/mm3 (0-0.3) Baso # (Auto) 0.1 K/mm3 K/mm3 (0.0-0.1) Abs Immat Gran (auto) 0.03 K/mm3 K/mm3 (0.00-0.031) Absolute Neuts (auto) 6.0 K/mm3 K/mm3 (1.3-6.7) Absolute Nucleated RBC 0.0 K/mm3 K/mm3 (0.0-0.012) Nucleated RBC % 0.0 % % (0.0-0.2) Sodium 139 mmol/L mmol/L (137-145) Potassium 3.6 mmol/L mmol/L (3.4-5.0) Chloride 105 mmol/L mmol/L (98-107) Carbon Dioxide 25 mmol/L mmol/L (22-30) Anion Gap 9 mmol/L mmol/L (8-16) BUN 17 mg/dL mg/dL (7-17) Creatinine 0.70 mg/dL mg/dL (0.7-1.0) Estim Creat Clear Calc 62 ml/min ml/min Estimated GFR > 60 (59 - ) Glucose 122 mg/dL H mg/dL (65-105) Calcium 8.5 mg/dL mg/dL (8.4-10.2) Magnesium 2.2 mg/dL mg/dL (1.6-2.3) TSH (Reflex) 3.330 uIU/mL uIU/mL (0.465-4.68) Patient hx anesthesia problems: none Family hx anesthesia problems: none [facility] Past Medical History Medical History (Updated 02/06/20 @ 00:00 by Background Daemon) Anxiety Cataracts, bilateral COPD (chronic obstructive pulmonary disease) CVA (cerebral vascular accident)
--- NOTE | 2020-10-01 07:21 | WPDURCON ---
Assessment and Plan Assessment and plan (1) Ureteral stone: Code(s): N20.1 - Calculus of ureter Status: Acute Assessment and Plan: She is a 7 mm right distal ureteral stone. She be taken to the OR for cystoscopy and right ureteral stent placement. She understands I will not be removing the stone. She will need definitive stone management of both her distal stone and renal stone in the future. (2) Hydronephrosis: Code(s): N13.30 - Unspecified hydronephrosis Status: Acute Assessment and Plan: Due to the above (3) Right renal stone: Code(s): N20.0 - Calculus of kidney Status: Acute (4) Fever: Code(s): R50.9 - Fever, unspecified Status: Acute Assessment and Plan: Will be admitted postoperatively to the medicine service. Urine culture pending. Will need appropriate antibiotics tailored to urine culture results. Urology Consult Note HPI Date Seen: 10/01/20 Requesting Physician: Erik Oconnell MD Primary Care Provider: Irene BelloMD Consult Narrative Narrative: Miracle Castro is a 70 year old female she has a history of nephrolithiasis. She has a 1 week history of right lower quadrant pain. She had dysuria. She had nausea and vomiting. She had a temperature at home of 102.3. This prompted a visit to the emergency room at [facility]. A CT scan shows a 7 mm right distal ureteral stone as well as a 1 cm renal stone. There is hydronephrosis. She had some AFib with rapid ventricular rate. There is no urologist at [place]. She was transferred [place] for ureteral stent placement which could be done this morning on a urgent basis. Of note she had a CT scan done in December of 2019 here [place]. It showed the stone to be in the proximal ureter without hydronephrosis. She understands I will not be removing the stone today and I will be placing a ureteral stent. She agrees to proceed. Review of Systems Review of Systems: All systems reviewed & are unremarkable except as noted in HPI and below [facility] Past Medical History Medical History (Updated 10/01/20 @ 07:25 by Emilio Loza MD) Anxiety Cataracts, bilateral COPD (chronic obstructive pulmonary disease) CVA (cerebral vascular accident) 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, with the most recent CVA being July 2019 with right basal ganglia infarct and anterior limb of capsule the patient was hospitalized at [facility] and diagnosed with moyamoya Depression GERD (gastroesophageal reflux disease) Hyperlipidemia Kidney stone Parkinson disease Paroxysmal atrial fibrillation Normal EF of 63% noted on echo at time of her stroke Subarachnoid hemorrhage The patient had a fall while at [facility] 2 days after her CVA at which time she had 2 small traumatic subarachnoid hemorrhages right frontal, the patient was not started on Eliquis because her repeat CT demonstrated persistent subarachnoid hemorrhages on 08/25/2019 Urinary retention with incomplete bladder emptying UTI (urinary tract infection) Surgical History Surgical History H/O cardiac catheterization History of appendectomy History of loop recorder History of tonsillectomy History of total hysterectomy with bilateral salpingo-oophorectomy (BSO) Family History Family History (Updated 10/01/20 @ 04:16 by Medina Carmona RN) Mother COPD (chronic obstructive pulmonary disease) Father COPD (chronic obstructive pulmonary disease) Malignant neoplasm of prostate Sibling Acute myocardial infarction Cancer Social History Social History Social History: Code status: Full code per EMR Smoking packs per day: 1 Smoking cigarettes per day: 20.0 Years smoked: 20 Smoking pack-years: 20.00 Smoking status: Former smoker [place]
--- NOTE | 2020-10-01 07:26 | WPDHPUPDATE1 ---
History and Physical Update Update Date/Time: 10/01/20 07:26 History and Physical has been reviewed, including an updated exam of the patient. There are NO changes in the patient's condition. Risks, benefits, and alternatives have been discussed and questions answered. Patient agrees to proceed with procedure.
--- NOTE | 2020-10-01 07:53 | P.OP_ITS ---
Procedure Note - Detailed Date of procedure: 10/01/20 Pre-op diagnosis: Afib with RVR, renal stone Right distal ureteral stone Right renal stone Hydronephrosis Fever Post-op diagnosis: same Procedure performed: Cystoscopy, right retrograde pyelogram, right ureteral s tent. Description of procedure: This along with the ureteral stone. She was at another hospital. She was treated with antibiotics and transferred for urologic intervention. She has correctly identified informed consent was obtained. She from the operating room. She was given mac anesthesia. She was prepped and draped in a sterile fashion. She was in the dorsal lithotomy position. A time-out performed. Cystoscopy revealed a normal-appearing bladder. She had cloudy urine. There is no other bladder abnormalities. I did a gentle retrograde pyelogram on the right. There is a distal ureteral stone noted by filling defect. Passed a guidewire to the kidney. I then placed a 4.8 variable length stent. Proximal coil in the upper pole kidney. Distal coil in the bladder. A urine culture was sent. Her bladder was drained. She was awakened and transferred to the PACU in stable condition. Implants: A 4.8 variable length stent Anesthesia: MAC Surgeon: Emilio Loza MD Estimated blood loss (mL): 0 Drains: Yes (4.8 very willing stent) Packing: No Pathology: none sent Complications: No immediate complications Condition: stable Disposition: PACU
--- NOTE | 2020-10-01 08:50 | SUR.PHASEI ---
[id number] sbar faxed floor notified
--- NOTE | 2020-10-01 10:18 | PC.NURSE ---
10:47 patient returned from surgery. A&O X4. 3L NC. No distress noted. Patient resting comfortably. Patient denies pain, SOB
[2020-10-01] MEDS: FLUoxetine HCL 20 MG CAPSULE 60 MG PO (11:00)
[2020-10-01] MEDS: LORATADINE 10 MG TABLET PO (11:00)
[2020-10-01] MEDS: CLOPIDOGREL BISULFATE 75 MG TABLET PO (11:00)
[2020-10-01] MEDS: PANTOPRAZOLE 40 MG TABLET PO (11:00)
[2020-10-01] MEDS: FLUTICASONE PROPIONATE 0.05% NA SPR 16 GM BTL (*BKC) 1 SPRAY NASAL (11:00)
[2020-10-01] MEDS: MAGNESIUM OXIDE 400 MG TABLET PO ×2 (11:00→18:00)
[2020-10-01 11:59] LABS: Add Urine Microscopic? YES; Appearance Urine Cloudy (Clear); Bacteria Urine Trace /hpf; Bilirubin Urine Negative (Negative); Blood Urine 3+ (Negative); Color Urine Yellow (Yellow); Glucose Urine UA Negative (Negative); Ketones Urine Negative (Negative); Leukocyte Esterase Ur 3+ LEU/UL (Negative); Nitrate Urine Negative (Negative); Protein Urine 1+ mg/dL (Negative); RBC Urine >75 /hpf (0-2); Specific Grav Ur 1.017 (1.001-1.035); Squamous Epithelial Cell Urine Rare /hpf (Few); Transitional Epi Cells Urine Rare /hpf (None Seen); Urobilinogen Urine Negative mg/dL (<2.0); WBC Clumps Urine Present /HPF; WBC Urine >75 /hpf
[2020-10-01] MEDS: CARBIDOPA/LEVODOPA 25/100 MG TABLET 1 TABLET PO ×3 (13:00→20:40)
[2020-10-01] MEDS: ACETAMINOPHEN 500 MG TABLET 1000 MG PO ×2 (13:15→21:17)
--- NOTE | 2020-10-01 15:12 | PM.IMHP ---
H&P: HPI History of Present Illness Date/Time: 10/01/20 15:12 Chief complaint: Afib with RVR, renal stone Narrative: Miracle Castro is a 70 year old female who presented to the hospital with right flank pain and hematuria, she was transferred from [facility] ER for a urologic evaluation since she was found to have a 7 mm stone. She also had dysuria and frequency. Currently she feels better, denies significant pain, the hematuria has stopped. She also referred nausea and vomiting which are resolved now. Patient denies chest pain, or palpitations, she was on A. Fib with RVR when she got here but now seems that her HR is controlled. She also denies diarrhea, no fever or chills. Review of Systems Review of Systems: All systems reviewed & are unremarkable except as noted in HPI and below PMFSH Past Medical History Medical History (Updated 10/01/20 @ 15:27 by Keith Turcios MD) Anxiety CAD (coronary artery disease) Cataracts, bilateral COPD (chronic obstructive pulmonary disease) CVA (cerebral vascular accident) 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, with the most recent CVA being July 2019 with right basal ganglia infarct and anterior limb of capsule the patient was hospitalized at [facility] and diagnosed with m[place]amoya Depression GERD (gastroesophageal reflux disease) Hyperlipidemia Kidney stone Parkinson disease Paroxysmal atrial fibrillation Normal EF of 63% noted on echo at time of her stroke Subarachnoid hemorrhage The patient had a fall while at [facility] 2 days after her CVA at which time she had 2 small traumatic subarachnoid hemorrhages right frontal, the patient was not started on Eliquis because her repeat CT demonstrated persistent subarachnoid hemorrhages on 08/25/2019 Urinary retention with incomplete bladder emptying UTI (urinary tract infection) Surgical History Surgical History H/O cardiac catheterization History of appendectomy History of loop recorder History of tonsillectomy History of total hysterectomy with bilateral salpingo-oophorectomy (BSO) Family History Family History Mother COPD (chronic obstructive pulmonary disease) Father COPD (chronic obstructive pulmonary disease) Malignant neoplasm of prostate Sibling Acute myocardial infarction Cancer Social History Social History (Reviewed 02/04/20 @ 15:56 by Hang Merrill Social History: Code status: Full code per EMR Smoking packs per day: 1 Smoking cigarettes per day: 20.0 Years smoked: 20 Smoking pack-years: 20.00 Smoking status: Former smoker Tobacco type: cigarettes Second hand tobacco smoke exposure: No Smoking end date: 08/15/19 Alcohol intake: never Substance use: never Substance use type: does not use Additional living arrangements comments: Since her stroke her moved back into the house with her to take care of her. She ambulates with a walker at all times. 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 Gender identity (if verbalized by the patient): Female Spiritual care concerns: Yes (Taoism) Agree to blood products: Yes Meds Home Medications and Allergies Home Medications Medication Instructions Recorded Confirmed Type albuterol sulfate 2 puff INHALATION Q4H PRN 12/10/19 10/01/20 History atorvastatin 80 mg PO HS 12/10/19 10/01/20 History carbidopa-levodopa 1 tablet PO TID 12/10/19 10/01/20 History clopidogrel [Plavix] 75 mg PO DAILY 12/10/19 10/01/20 History diltiazem HCl 60 mg PO TID 12/10/19 10/01/20 History fluoxetine 60 mg PO DAILY 12/10/19 10/01/20 History fluticasone propionate 1 spray INTRANASAL DAILY 12/10/19 10/01/20 History acetaminophen 1,000 mg PO BID PRN 12/11/19 10/01/20 History melatonin 3 mg PO HS #30 tablet 12/16/19 10/01/20 Rx s
[2020-10-01 18:31] LABS: Iron 18 ug/dL (37-170)
[2020-10-01 18:40] LABS: Percent Iron Saturation 5 % (20-50)
--- NOTE | 2020-10-01 18:45 | PC.NURSE ---
This patient, Miracle Castro, was transferred to [[facility] ] on 10/01/20 at 1845. Personal belongings sent with patient. Report given to [prince ]. Appropriate documentation sent with patient.
[2020-10-01] MEDS: MELATONIN 3 MG TABLET PO (20:40)
[2020-10-01] MEDS: ATORVASTATIN 40 MG TABLET 80 MG PO (20:40)
[2020-10-01] MEDS: diazePAM (*CRX) 5 MG TABLET 10 MG PO (21:16)
--- NOTE | 2020-10-01 22:18 | PC.NURSE ---
At 1935 Pt has arrived per bed. Iv's intact, o2-3l. Orientating pt to room and call light. Pt has no complaints at this time. Bed exit alarm activated.
[2020-10-02] VITALS (15 sets, daily range): BP systolic 102–105; BP diastolic 54–71; PULSE 60–102; RESP 16–22; TEMP 36.1–36.2; O2SAT 98–100
[2020-10-02 06:15] LABS: Basophils Percent Auto 0.3 % (0.2-1.2); Eosinophils Absolute Auto 0.2 K/mm3 (0-0.3); Eosinophils Percent Auto 2.6 % (0-4.4); Hematocrit 29.7 % (37.0-47.0); Hemoglobin 8.7 g/dL (12.0-15.0); Immature Granulocyte Absolute 0.03 K/mm3 (0.00-0.031); Immature Granulocyte Percent A 0.3 % (0-0.5); Lymphocytes Percent Auto 21.3 % (18.3-44.2); Mean Corpuscular HGB Conc 29.3 g/dl (32-36); Mean Corpuscular Hemoglobin 23.7 pg (26-34); Mean Corpuscular Volume 80.9 fl (80-100); Mean Platelet Volume 10.3 fl (7.4-10.4); Monocytes Absolute Auto 1.2 K/mm3 (0.1-0.6); Monocytes Percent Auto 13.2 % (2.6-8.5); Neutrophils Absolute Auto 5.8 K/mm3 (1.3-6.7); Neutrophils Percent Auto 62.3 % (45.5-73.1); Platelet Count Result 216 k/mm3 (150-375); Red Blood Count 3.67 M/mm3 (4.2-5.4); Red Cell Distribution Width 15.3 % (11.5-14.5); White Blood Count 9.4 K/mm3 (4.5-10.0)
[2020-10-02 07:10] LABS: Anion Gap 5 mmol/L (8-16); Blood Urea Nitrogen 12 mg/dL (7-17); Calcium 8.6 mg/dL (8.4-10.2); Carbon Dioxide 29 mmol/L (22-30); Chloride 105 mmol/L (98-107); Estimated CRCL calculation 74 ml/min; Estimated Glomerular Filt Rate > 60; Glucose 103 mg/dL (65-105); Magnesium 2.2 mg/dL (1.6-2.3); Potassium 3.9 mmol/L (3.4-5.0); Sodium 139 mmol/L (137-145)
--- NOTE | 2020-10-02 08:23 | WPDUROPN2 ---
Progress Note: A&P Assessment and Plan (1) Right renal stone: Code(s): N20.0 - Calculus of kidney Status: Acute (2) Ureteral stone: Code(s): N20.1 - Calculus of ureter Status: Acute Assessment and Plan: Tolerating stent / no flank pain or voiding symtpoms. Home when other medical issues resolved. F/U as outpt. with us to arrange definitive mgmt. of ureteral and renal stones. Subjective Subjective Date/Time Seen: 10/02/20 08:23 Tolerating ureteral stent well - no flank pain or significant voiding symptoms Review of Systems Cardiovascular: Cardiovascular: Denies chest pain, Denies lightheadedness, Denies palpitations and Denies dyspnea Respiratory: Respiratory: Denies dyspnea Gastrointestinal: Gastrointestinal: Denies diarrhea, Denies nausea and Denies vomiting Genitourinary: Genitourinary: Denies hematuria and Denies dysuria Endocrine: Endocrine: Denies palpitations Exam Const: General: no acute distress Resp: Effort & Inspection: normal respiratory effort GI: Inspection: non-distended GI Palp: No abdominal tenderness and No Guarding due to palpation present (GI) Auscultation: normal bowel sounds Objective Data Vital Signs Vital Signs: Vital Signs - 24 hr 10/01/20 08:30 10/01/20 08:45 10/01/20 08:58 Temperature Pulse Rate 84 81 82 Respiratory Rate 20 20 16 Blood Pressure 107/51 L 94/51 L 109/47 L Pulse Oximetry 99 99 100 10/01/20 09:10 10/01/20 10:00 10/01/20 10:49 Temperature Pulse Rate 84 90 Respiratory Rate 18 Blood Pressure 107/50 L Pulse Oximetry 100 98 10/01/20 12:00 10/01/20 14:00 10/01/20 16:00 Temperature 98.1 F Pulse Rate 88 89 84 Respiratory Rate 22 H Blood Pressure 109/48 L Pulse Oximetry 96 96 10/01/20 17:22 10/01/20 18:00 10/01/20 20:00 Temperature 98.1 F Pulse Rate 76 84 79 Respiratory Rate 24 H Blood Pressure 102/46 L Pulse Oximetry 98 10/01/20 22:07 10/02/20 00:00 10/02/20 04:00 Temperature 97 F L Pulse Rate 89 79 72 Respiratory Rate 18 Blood Pressure 100/58 L Pulse Oximetry 100 Intake/Output Intake/Output: Intake & Output 09/29/20 09/30/20 10/01/20 10/02/20 23:59 23:59 23:59 23:59 Intake Total 1020 240 Output Total 900 600 Balance 120 -360 Meds/Results Medications: Active Medications Generic Name Dose Route Start Last Admin Trade Name Freq PRN Reason Stop Dose Admin Acetaminophen 1,000 mg 10/01/20 09:30 10/01/20 21:17 Acetaminophen 500 Mg Tablet PO 1,000 mg BID PRN Administration Pain Albuterol 2 puff 10/01/20 09:30 Albuterol Sulfate (*Sp) Aerosol 1 Puff INHALATION Q4H PRN Wheezing Albuterol 2.5 mg 10/01/20 09:30 Albuterol Sulfate Neb 2.5 Mg/3 Ml Inh INHALATION Q4H PRN Shortness Of Breath Atorvastatin Calcium 80 mg 10/01/20 21:00 10/01/20 20:40 Atorvastatin 40 Mg Tablet PO 80 mg HS MELISSA Administration Carbidopa/Levodopa 1 tablet 10/01/20 12:00 10/01/20 20:40 Carbidopa/Levodopa 25/100 Mg Tablet PO 1 tablet 1200,1700,2100 MELISSA Administration Clopidogrel Bisulfate 75 mg 10/01/20 09:30 10/01/20 11:00 Clopidogrel Bisulfate 75 Mg Tablet PO 75 mg DAILY MELISSA Administration Diazepam 10 mg 10/02/20 09:00 Diazepam (*Crx) 5 Mg Tablet PO TID MELISSA Diltiazem HCl 60 mg 10/01/20 09:30 10/02/20 05:50 Diltiazem Hcl 12 Hr 60 Mg Cap.Er.12h PO 60 mg Q8HR MELISSA Administration Fluoxetine HCl 60 mg 10/01/20 09:30 10/01/20 11:00 Fluoxetine Hcl 20 Mg Capsule PO 60 mg DAILY MELISSA Administration Fluticasone Propionate 1 spray 10/01/20 09:30 10/01/20 11:00 Fluticasone Propionate 0.05% Na Spr 16 Gm Btl (*Bkc) NASAL 1 spray DAILY MELISSA Administration Levofloxacin/Dextrose 500 mg in 100 mls @ 100 mls/hr 10/02/20 09:00 Levaquin 500 Mg/D5w 100 Ml IVPB Q24H MELISSA Loratadine 10 mg 10/01/20 09:40 10/01/20 11:00 Loratadine 10 Mg Tablet PO 10 mg
[2020-10-02 08:38] LABS: Hypochromasia 1+ (NORMAL); Platelet Estimate Adequate (Adequate); Poikilocytosis 2+ (NORMAL)
[2020-10-02 08:39] LABS: Burr Cells 1+ (NORMAL); Ovalocytes 1+ (NORMAL)
[2020-10-02] MEDS: FLUoxetine HCL 20 MG CAPSULE 60 MG PO (08:39)
[2020-10-02] MEDS: PANTOPRAZOLE 40 MG TABLET PO (08:39)
[2020-10-02] MEDS: LORATADINE 10 MG TABLET PO (08:39)
[2020-10-02] MEDS: MAGNESIUM OXIDE 400 MG TABLET PO ×2 (08:39→16:44)
[2020-10-02] MEDS: FLUTICASONE PROPIONATE 0.05% NA SPR 16 GM BTL (*BKC) 1 SPRAY NASAL (08:40)
[2020-10-02] MEDS: CLOPIDOGREL BISULFATE 75 MG TABLET PO (08:40)
[2020-10-02] MEDS: ACETAMINOPHEN 500 MG TABLET 1000 MG PO (08:48)
[2020-10-02] MEDS: diazePAM (*CRX) 5 MG TABLET 10 MG PO ×2 (08:48→20:54)
[2020-10-02] MEDS: levoFLOXacin 500 MG/D5W 100 ML 500 MG/100 ML BAG 100 MG IVPB (09:38)
[2020-10-02] MEDS: CARBIDOPA/LEVODOPA 25/100 MG TABLET 1 TABLET PO ×3 (12:07→20:53)
--- NOTE | 2020-10-02 12:43 | PM.DS ---
DS: Admitting Diagnosis Admitting Diagnosis Admitting Diagnosis: Afib with RVR, renal stone DS: Discharge Diagnosis Discharge Diagnosis (1) Right nephrolithiasis: Code(s): N20.0 - Calculus of kidney Status: Acute Assessment and Plan: She had a stent placed by urology this morning. Urine cultures are pending, she was started on levofloxacin by urology. (2) Paroxysmal atrial fibrillation: Code(s): I48.0 - Paroxysmal atrial fibrillation Status: Acute Assessment and Plan: This problem is not new for her, she was recently took off anticoagulation by her ramp and cargo supervisor due to the hematuria. If her hematuria is completely resolved and her Hb is stable she should be back on AC as soon as it is safe. She is not on RVR anymore, her Cardizem has been resumed. (3) Anemia: Code(s): D64.9 - Anemia, unspecified Status: Acute Assessment and Plan: Not actively bleeding at this time, she probably had some acute blood loss with the hematuria but unclear how severe it was. AC has been stopped by her ramp and cargo supervisor. Will send iron stuides, ferritin and occult blood in feces. (4) COPD (chronic obstructive pulmonary disease): Code(s): J44.9 - Chronic obstructive pulmonary disease, unspecified Status: Chronic Assessment and Plan: Stable (5) CAD (coronary artery disease): Code(s): I25.10 - Atherosclerotic heart disease of [place] coronary artery without angina pectoris Status: Chronic Assessment and Plan: This problem is stable, she is on Plavix and a statin. DS: Summary Hospital Course Reason for hospitalization: Chief complaint: Afib with RVR, renal stone Narrative: Miracle Castro is a 70 year old female who presented to the hospital with right flank pain and hematuria, she was transferred from [facility] ER for a urologic evaluation since she was found to have a 7 mm stone. She also had dysuria and frequency. Currently she feels better, denies significant pain, the hematuria has stopped. She also referred nausea and vomiting which are resolved now. Patient denies chest pain, or palpitations, she was on A. Fib with RVR when she got here but now seems that her HR is controlled. She also denies diarrhea, no fever or chills. Hospital Course: patient with abdominal pain had a CT scan of the abdomen Time Spent with Patient Time attestation: Total time spent providing and/or coordinating discharge services: DS: Data Data Completed and Pending Labs on day of discharge: Labs from last 24 hours 10/02/20 10/02/20 10/01/20 05:36 05:36 17:18 WBC 9.4 RBC 3.67 L Hgb 8.7 L Hct 29.7 L MCV 80.9 MCH 23.7 L MCHC 29.3 L RDW 15.3 H Plt Count 216 MPV 10.3 Immature Gran % (Auto) 0.3 Neut % (Auto) 62.3 Lymph % (Auto) 21.3 [place] % (Auto) 13.2 H Eos % (Auto) 2.6 Baso % (Auto) 0.3 Lymph # (Auto) 2.00 [place] # (Auto) 1.2 H Eos # (Auto) 0.2 Baso # (Auto) 0.0 Abs Immat Gran (auto) 0.03 Absolute Neuts (auto) 5.8 Absolute Nucleated RBC 0.0 Nucleated RBC % 0.0 Platelet Estimate Adequate Hypochromasia 1+ Poikilocytosis 2+ Ovalocytes 1+ [place] Cells 1+ Sodium 139 Potassium 3.9 Chloride 105 Carbon Dioxide 29 Anion Gap 5 L BUN 12 D Creatinine 0.60 L Estim Creat Clear Calc 74 Estimated GFR > 60 Glucose 103 Calcium 8.6 Magnesium 2.2 Iron 18 L TIBC 361 % Saturation 5 L Ferritin 10/01/20 17:18 WBC RBC Hgb Hct MCV MCH MCHC RDW Plt Count MPV Immature Gran % (Auto) Neut % (Auto) Lymph % (Auto) [place] % (Auto) Eos % (Auto) Baso % (Auto) Lymph # (Auto) [place] # (Auto) Eos # (Auto) Baso # (Auto) Abs Immat Gran (auto) Absolute Neuts (auto) Absolute Nucleated RBC Nucleated RBC % Platelet Estimate Hypochromasia Poikilocytosis Ovalocytes Byron Cells Sodium Potas
--- NOTE | 2020-10-02 13:54 | WPDANESPN ---
Anes - Prog Note Post-Op Date/Time: 10/02/20 13:54 Cardiovascular status: normal Respiratory status: normal Airway patency: baseline Mental status: baseline Post-Op hydration status: normal Vital Signs: Last Vital Signs Temp 36.1 C L 10/01/20 22:07 Pulse 102 H 10/02/20 08:00 Resp 18 10/01/20 22:07 BP 100/58 L 10/01/20 22:07 Pulse Ox 98 10/02/20 09:30 Pain Score (VAS): 12/05 I/O: Intake & Output 10/01/20 10/02/20 10/02/20 23:59 07:59 15:59 Intake Total 300 240 240 Output Total 700 600 Balance -400 -360 240 Laboratory Tests 10/02/20 05:36 10/02/20 05:36 10/01/20 10/01/20 10/02/20 17:18 17:18 05:36 WBC 9.4 RBC 3.67 L Hgb 8.7 L Hct 29.7 L MCV 80.9 MCH 23.7 L MCHC 29.3 L RDW 15.3 H Plt Count 216 MPV 10.3 Immature Gran % (Auto) 0.3 Neut % (Auto) 62.3 Lymph % (Auto) 21.3 [place] % (Auto) 13.2 H Eos % (Auto) 2.6 Baso % (Auto) 0.3 Lymph # (Auto) 2.00 [place] # (Auto) 1.2 H Eos # (Auto) 0.2 Baso # (Auto) 0.0 Abs Immat Gran (auto) 0.03 Absolute Neuts (auto) 5.8 Absolute Nucleated RBC 0.0 Nucleated RBC % 0.0 Platelet Estimate Adequate Hypochromasia 1+ Poikilocytosis 2+ Ovalocytes 1+ [place] Cells 1+ Sodium Potassium Chloride Carbon Dioxide Anion Gap BUN Creatinine Estim Creat Clear Calc Estimated GFR Glucose Calcium Magnesium Iron 18 L TIBC 361 % Saturation 5 L Ferritin 20.90 10/02/20 05:36 WBC RBC Hgb Hct MCV MCH MCHC RDW Plt Count MPV Immature Gran % (Auto) Neut % (Auto) Lymph % (Auto) [place] % (Auto) Eos % (Auto) Baso % (Auto) Lymph # (Auto) [place] # (Auto) Eos # (Auto) Baso # (Auto) Abs Immat Gran (auto) Absolute Neuts (auto) Absolute Nucleated RBC Nucleated RBC % Platelet Estimate Hypochromasia Poikilocytosis Ovalocytes [place] Cells Sodium 139 Potassium 3.9 Chloride 105 Carbon Dioxide 29 Anion Gap 5 L BUN 12 D Creatinine 0.60 L Estim Creat Clear Calc 74 Estimated GFR > 60 Glucose 103 Calcium 8.6 Magnesium 2.2 Iron TIBC % Saturation Ferritin Post-procedural complaints: none Patient Feedback: Patient satisfied with anesthetic care.
--- NOTE | 2020-10-02 13:58 | PM.IMPN ---
Progress Note: A&P Assessment and Plan (1) Right nephrolithiasis: Code(s): N20.0 - Calculus of kidney Status: Acute Assessment and Plan: She had a stent placed by urology this morning. Urine cultures are pending, she was started on levofloxacin by urology. 10/02/20 13:58 patient is 70-year-old female with history of proximal atrial fibrillation and hematuria, initially patient was seen at the [facility] Emergency Department with complaint right flank pain and hematuria CT scan of the abdomen showed 7 mm kidney stone and patient was transferred to the hospital patient was seen by urology and patient had a cystoscopy retrograde pyelogram and stent was placed, today patient is feeling better denies any abdominal pain nausea or vomiting, patient with history of proximal atrial fibrillation upon arrival patient developed AFib with RVR patient was started on diltiazem drip now the rate is controlled and patient was switched over to p.o. diltiazem, and had been on Eliquis for anticoagulation however due to hematuria her cut plug packer is stop the anticoagulation, denies any chest pain shortness of breath palpitation fever or chills. will continue to monitor patient if remains clinically stable will discharge her home tomorrow. (2) Paroxysmal atrial fibrillation: Code(s): I48.0 - Paroxysmal atrial fibrillation Status: Acute Assessment and Plan: This problem is not new for her, she was recently took off anticoagulation by her cut plug packer due to the hematuria. If her hematuria is completely resolved and her Hb is stable she should be back on AC as soon as it is safe. She is not on RVR anymore, her Cardizem has been resumed. (3) Anemia: Code(s): D64.9 - Anemia, unspecified Status: Acute Assessment and Plan: Not actively bleeding at this time, she probably had some acute blood loss with the hematuria but unclear how severe it was. AC has been stopped by her cut plug packer. Will send iron stuides, ferritin and occult blood in feces. (4) COPD (chronic obstructive pulmonary disease): Code(s): J44.9 - Chronic obstructive pulmonary disease, unspecified Status: Chronic Assessment and Plan: Stable (5) CAD (coronary artery disease): Code(s): I25.10 - Atherosclerotic heart disease of [place] coronary artery without angina pectoris Status: Chronic Assessment and Plan: This problem is stable, she is on Plavix and a statin. Subjective Date/time seen: 10/02/20 13:58 patient is 70-year-old female with history of proximal atrial fibrillation and hematuria, initially patient was seen at the [facility] Emergency Department with complaint right flank pain and hematuria CT scan of the abdomen showed 7 mm kidney stone and patient was transferred to the hospital patient was seen by urology and patient had a cystoscopy retrograde pyelogram and stent was placed, today patient is feeling better denies any abdominal pain nausea or vomiting, patient with history of proximal atrial fibrillation upon arrival patient developed AFib with RVR patient was started on diltiazem drip now the rate is controlled and patient was switched over to p.o. diltiazem, and had been on Eliquis for anticoagulation however due to hematuria her cut plug packer is stop the anticoagulation, denies any chest pain shortness of breath palpitation fever or chills. will continue to monitor patient if remains clinically stable will discharge her home tomorrow. Review of Systems Review of Systems: All systems reviewed & are unremarkable except as noted in HPI and below Exam Narrative: Exam Narrative: Patient is comfortable, NAD HEENT: eyes are clear and none icteric LUNGS:CTA HEART: irregularly irregular ABD: BS+, Soft and diffusely tender Lower extremities: no edema SKIN: nonjaundiced Neuro: grossly intact. Objective Data Vital Signs Vital Signs: Vital Sign
[2020-10-02] MEDS: polyethylene glycoL 3350 17 GM POWD.PACK PO (16:44)
[2020-10-02] MEDS: ALBUTEROL SULFATE NEB 2.5 MG/3 ML INH INHALATION (18:23)
[2020-10-02] MEDS: ATORVASTATIN 40 MG TABLET 80 MG PO (20:53)
[2020-10-02] MEDS: MELATONIN 3 MG TABLET PO (20:55)
[2020-10-03] VITALS (21 sets, daily range): BP systolic 123–134; BP diastolic 52–61; PULSE 76–102; RESP 18–22; TEMP 36.6–36.8; O2SAT 98–100
[2020-10-03] MEDS: SALINE 0.65% NAS SOLN 44 ML BTL 1 SPRAY NASAL ×2 (05:26→09:18)
[2020-10-03] MEDS: ALBUTEROL SULFATE NEB 2.5 MG/0.5 ML INH INHALATION ×5 (05:34→21:42)
[2020-10-03 06:12] LABS: Basophils Percent Auto 0.4 % (0.2-1.2); Eosinophils Absolute Auto 0.2 K/mm3 (0-0.3); Eosinophils Percent Auto 2.4 % (0-4.4); Hematocrit 28.1 % (37.0-47.0); Hemoglobin 8.4 g/dL (12.0-15.0); Immature Granulocyte Absolute 0.02 K/mm3 (0.00-0.031); Immature Granulocyte Percent A 0.2 % (0-0.5); Lymphocytes Absolute Auto 1.42 K/mm3 (0.9-3.2); Lymphocytes Percent Auto 16.8 % (18.3-44.2); Mean Corpuscular HGB Conc 29.9 g/dl (32-36); Mean Corpuscular Hemoglobin 23.9 pg (26-34); Mean Corpuscular Volume 79.8 fl (80-100); Mean Platelet Volume 10.3 fl (7.4-10.4); Monocytes Absolute Auto 0.8 K/mm3 (0.1-0.6); Monocytes Percent Auto 9.2 % (2.6-8.5); Platelet Count Result 227 k/mm3 (150-375); Red Blood Count 3.52 M/mm3 (4.2-5.4); Red Cell Distribution Width 15.3 % (11.5-14.5); White Blood Count 8.5 K/mm3 (4.5-10.0)
[2020-10-03 06:26] LABS: Anion Gap 8 mmol/L (8-16); Blood Urea Nitrogen 11 mg/dL (7-17); Calcium 8.6 mg/dL (8.4-10.2); Carbon Dioxide 31 mmol/L (22-30); Chloride 100 mmol/L (98-107); Estimated CRCL calculation 74 ml/min; Estimated Glomerular Filt Rate > 60; Glucose 119 mg/dL (65-105); Potassium 3.6 mmol/L (3.4-5.0); Sodium 139 mmol/L (137-145)
[2020-10-03 07:27] LABS: Platelet Estimate Adequate (Adequate)
[2020-10-03 07:28] LABS: Anisocytosis 1+ (NORMAL); Hypochromasia 1+ (NORMAL); Ovalocytes 1+ (NORMAL); Poikilocytosis 1+ (NORMAL)
[2020-10-03] MEDS: POTASSIUM CHLORIDE 20 MEQ TABLET 40 MEQ PO (09:18)
[2020-10-03] MEDS: polyethylene glycoL 3350 17 GM POWD.PACK PO (09:18)
[2020-10-03] MEDS: PANTOPRAZOLE 40 MG TABLET PO (09:18)
[2020-10-03] MEDS: MAGNESIUM OXIDE 400 MG TABLET PO ×2 (09:18→17:09)
[2020-10-03] MEDS: FLUoxetine HCL 20 MG CAPSULE 60 MG PO (09:18)
[2020-10-03] MEDS: levoFLOXacin 500 MG/D5W 100 ML 500 MG/100 ML BAG 100 MG IVPB (09:18)
[2020-10-03] MEDS: LORATADINE 10 MG TABLET PO (09:19)
[2020-10-03] MEDS: CLOPIDOGREL BISULFATE 75 MG TABLET PO (09:19)
[2020-10-03] MEDS: FLUTICASONE PROPIONATE 0.05% NA SPR 16 GM BTL (*BKC) 1 SPRAY NASAL (09:19)
[2020-10-03 11:18] LABS: Folic Acid 6.9 ng/mL (2.76->20)
--- NOTE | 2020-10-03 11:52 | PM.IMPN ---
Progress Note: A&P Assessment and Plan (1) Right nephrolithiasis: Code(s): N20.0 - Calculus of kidney Status: Acute Assessment and Plan: She had a stent placed by urology this morning. Urine cultures are pending, she was started on levofloxacin by urology. 10/03/20 11:52 patient is 70-year-old female with history of proximal atrial fibrillation and hematuria, initially patient was seen at the [facility] Emergency Department with complaint right flank pain and hematuria CT scan of the abdomen showed 7 mm kidney stone and patient was transferred to the hospital patient was seen by urology and patient had a cystoscopy retrograde pyelogram and stent was placed, on 10/02 patient was feeling better denied any abdominal pain nausea or vomiting, patient with history of proximal atrial fibrillation upon arrival patient developed AFib with RVR patient was started on diltiazem drip the rate was controlled and patient was switched over to p.o. diltiazem, and had been on Eliquis for anticoagulation however due to hematuria her drug inspector had stopped the anticoagulation, today 10/03 Urine culture is growing Enterococcus sensitivities pending will continue Rocephin, iron profile showed patient has iron deficiency anemia, will give the patient 1 time dose of Venofer 300 mg, patient is clinically stable denies any complains of abdominal pain nausea or vomiting chest pain palpitation fever or chills, will continue present management will follow-up on the urine sensitivity if remains clinically stable will discharge the patient home tomorrow. (2) Paroxysmal atrial fibrillation: Code(s): I48.0 - Paroxysmal atrial fibrillation Status: Acute Assessment and Plan: This problem is not new for her, she was recently took off anticoagulation by her drug inspector due to the hematuria. If her hematuria is completely resolved and her Hb is stable she should be back on AC as soon as it is safe. She is not on RVR anymore, her Cardizem has been resumed. (3) Anemia: Code(s): D64.9 - Anemia, unspecified Status: Acute Assessment and Plan: Not actively bleeding at this time, she probably had some acute blood loss with the hematuria but unclear how severe it was. AC has been stopped by her drug inspector. Will send iron stuides, ferritin and occult blood in feces. (4) COPD (chronic obstructive pulmonary disease): Code(s): J44.9 - Chronic obstructive pulmonary disease, unspecified Status: Chronic Assessment and Plan: Stable (5) CAD (coronary artery disease): Code(s): I25.10 - Atherosclerotic heart disease of [place] coronary artery without angina pectoris Status: Chronic Assessment and Plan: This problem is stable, she is on Plavix and a statin. Subjective Date/time seen: 10/03/20 11:52 patient is 70-year-old female with history of proximal atrial fibrillation and hematuria, initially patient was seen at the [facility] Emergency Department with complaint right flank pain and hematuria CT scan of the abdomen showed 7 mm kidney stone and patient was transferred to the hospital patient was seen by urology and patient had a cystoscopy retrograde pyelogram and stent was placed, on 10/02 patient was feeling better denied any abdominal pain nausea or vomiting, patient with history of proximal atrial fibrillation upon arrival patient developed AFib with RVR patient was started on diltiazem drip the rate was controlled and patient was switched over to p.o. diltiazem, and had been on Eliquis for anticoagulation however due to hematuria her drug inspector had stopped the anticoagulation, today 10/03 Urine culture is growing Enterococcus sensitivities pending will continue Rocephin, iron profile showed patient has iron deficiency anemia, will give the patient 1 time dose of Venofer 300 mg, patient is clinically stable denies any complains of abdominal
[2020-10-03] MEDS: CARBIDOPA/LEVODOPA 25/100 MG TABLET 1 TABLET PO ×3 (12:09→21:11)
--- NOTE | 2020-10-03 13:34 | WPDUROPN2 ---
Progress Note: A&P Assessment and Plan (1) Hydronephrosis: Code(s): N13.30 - Unspecified hydronephrosis Status: Acute (2) Ureteral stone: Code(s): N20.1 - Calculus of ureter Status: Acute Assessment and Plan: POD#2 s/p right ureteral stent for obstructing ureteral stone - tolerating stent well - reg diet -urine cx prelim is growing enterococcus; is on levaquin. Adjust abx based on final sensitivities - will need definitive stone surgery with Dr. Loza as outpt once infection resolves - anticipate d/c tomorrow. Subjective Subjective Date/Time Seen: 10/03/20 13:34 Feeling much better. Denies any pain. Just feels tired. No fevers Review of Systems Constitutional: Constitutional: Reports fatigue Respiratory: Respiratory: Reports no additional respiratory complaints Gastrointestinal: Gastrointestinal: Reports no additional gastrointestinal complaints Genitourinary: Genitourinary: Reports no additional female genitourinary complaints Exam Narrative: Exam Narrative: 70 yo WF in NAD Const: General: cooperative, healthy appearing and comfortable Resp: Effort & Inspection: normal respiratory effort GI: Inspection: normal to inspection GI Palp: No abdominal tenderness : General: Yes no CVA tenderness Skin: General skin exam: normal color Lesions: no lesions Rashes: no rashes Psych: Appearance: grossly normal Affect: normal affect Objective Data Vital Signs Vital Signs: Vital Signs - 24 hr 10/02/20 14:00 10/02/20 16:00 10/02/20 18:28 Temperature 36.2 C L Pulse Rate 100 96 60 Respiratory Rate 16 18 Blood Pressure 105/71 Pulse Oximetry 100 100 10/02/20 20:00 10/02/20 21:37 10/02/20 21:38 Temperature Pulse Rate 92 90 Respiratory Rate 20 Blood Pressure Pulse Oximetry 100 10/02/20 21:47 10/02/20 22:00 10/02/20 22:50 Temperature 36.1 C L Pulse Rate 94 94 Respiratory Rate 20 22 H Blood Pressure 102/54 L Pulse Oximetry 100 100 10/03/20 00:00 10/03/20 04:00 10/03/20 05:36 Temperature Pulse Rate 96 95 93 Respiratory Rate 20 Blood Pressure Pulse Oximetry 10/03/20 06:00 10/03/20 08:00 10/03/20 09:08 Temperature 36.6 C Pulse Rate 87 91 92 Respiratory Rate 22 H 20 Blood Pressure 123/61 Pulse Oximetry 100 10/03/20 09:13 10/03/20 09:14 10/03/20 09:20 Temperature Pulse Rate 92 Respiratory Rate 20 Blood Pressure Pulse Oximetry 98 98 Intake/Output Intake/Output: Intake & Output 09/30/20 10/01/20 10/02/20 10/03/20 23:59 23:59 23:59 23:59 Intake Total 1020 1710 500 Output Total 900 1150 500 Balance 120 560 0 Meds/Results Medications: Active Medications Generic Name Dose Route Start Last Admin Trade Name Freq PRN Reason Stop Dose Admin Acetaminophen 1,000 mg 10/01/20 09:30 10/02/20 08:48 Acetaminophen 500 Mg Tablet PO 1,000 mg BID PRN Administration Pain Albuterol 2.5 mg 10/02/20 23:23 10/03/20 05:34 Albuterol Sulfate Neb 2.5 Mg/0.5 Ml Inh INHALATION 2.5 mg Q4HRT PRN Administration Shortness Of Breath Albuterol 2.5 mg 10/03/20 08:00 10/03/20 09:08 Albuterol Sulfate Neb 2.5 Mg/0.5 Ml Inh INHALATION 2.5 mg [id number] MELISSA Administration Atorvastatin Calcium 80 mg 10/01/20 21:00 10/02/20 20:53 Atorvastatin 40 Mg Tablet PO 80 mg HS MELISSA Administration Carbidopa/Levodopa 1 tablet 10/01/20 12:00 10/03/20 12:09 Carbidopa/Levodopa 25/100 Mg Tablet PO 1 tablet 1200,1700,2100 MELISSA Administration Clopidogrel Bisulfate 75 mg 10/01/20 09:30 10/03/20 09:19 Clopidogrel Bisulfate 75 Mg Tablet PO 75 mg DAILY MELISSA Administration Diazepam 10 mg 10/02/20 21:00 10/02/20 20:54 Diazepam (*Crx) 5 Mg Tablet PO 10 mg HS MELISSA Administration Diltiazem HCl 60 mg 10/01/20 09:30 10/03/20 13:23 Diltiazem Hcl 12 Hr 60 Mg Cap.Er.12h PO 60 mg Q8HR MELISSA Administration Fluoxetine HCl 60 mg 10/01/20 09:30 11
[2020-10-03] MEDS: methylPREDNISolone SOD SUCC 40 MG VIAL IV PUSH (18:39)
[2020-10-03] MEDS: diazePAM (*CRX) 5 MG TABLET 10 MG PO (21:11)
[2020-10-03] MEDS: MELATONIN 3 MG TABLET PO (21:11)
[2020-10-03] MEDS: ATORVASTATIN 40 MG TABLET 80 MG PO (21:11)
[2020-10-04] VITALS (10 sets, daily range): BP systolic 112; BP diastolic 70; PULSE 79–106; RESP 20; TEMP 36.5; O2SAT 92–99
[2020-10-04 05:35] LABS: Hematocrit 29.8 % (37.0-47.0); Hemoglobin 8.9 g/dL (12.0-15.0); Mean Corpuscular HGB Conc 29.9 g/dl (32-36); Mean Corpuscular Volume 80.3 fl (80-100); Platelet Count Result 262 k/mm3 (150-375); Red Blood Count 3.71 M/mm3 (4.2-5.4); Red Cell Distribution Width 15.5 % (11.5-14.5); White Blood Count 4.7 K/mm3 (4.5-10.0)
[2020-10-04 05:51] LABS: Anion Gap 6 mmol/L (8-16); Blood Urea Nitrogen 9 mg/dL (7-17); Calcium 9.4 mg/dL (8.4-10.2); Carbon Dioxide 33 mmol/L (22-30); Chloride 103 mmol/L (98-107); Estimated CRCL calculation 88 ml/min; Estimated Glomerular Filt Rate > 60; Glucose 170 mg/dL (65-105); Potassium 4.7 mmol/L (3.4-5.0); Sodium 142 mmol/L (137-145)
--- NOTE | 2020-10-04 07:24 | WPDUROPN2 ---
Progress Note: A&P Assessment and Plan (1) Ureteral stone: Code(s): N20.1 - Calculus of ureter Status: Acute Assessment and Plan: Will need definitive stone management as an outpatient. We will call to schedule. (2) Urinary tract infection: Code(s): N39.0 - Urinary tract infection, site not specified Status: Acute Assessment and Plan: Should change to appropriate p.o. antibiotic. Otherwise outpatient management. Subjective Subjective Date/Time Seen: 10/04/20 07:24 she is resting comfortably. Urine culture shows enterococcus sensitive to nitrofurantoin, vancomycin, ampicillin Exam Const: General: comfortable; No no acute distress Resp: Effort & Inspection: normal respiratory effort Objective Data Vital Signs Vital Signs: Vital Signs - 24 hr 10/03/20 08:00 10/03/20 09:08 10/03/20 09:13 Temperature Pulse Rate 91 92 Respiratory Rate 20 Blood Pressure Pulse Oximetry 98 10/03/20 09:14 10/03/20 09:20 10/03/20 12:00 Temperature Pulse Rate 92 76 Respiratory Rate 20 Blood Pressure Pulse Oximetry 98 10/03/20 14:00 10/03/20 14:13 10/03/20 14:19 Temperature 98.3 F Pulse Rate 88 90 85 Respiratory Rate 22 H 20 20 Blood Pressure 129/53 L Pulse Oximetry 100 10/03/20 16:00 10/03/20 17:00 10/03/20 17:06 Temperature Pulse Rate 82 86 85 Respiratory Rate 20 20 Blood Pressure Pulse Oximetry 10/03/20 20:00 10/03/20 21:39 10/03/20 21:40 Temperature 98.0 F Pulse Rate 102 H 102 H Respiratory Rate 20 18 20 Blood Pressure 134/52 L Pulse Oximetry 98 98 10/03/20 21:43 10/03/20 21:45 10/04/20 00:28 Temperature Pulse Rate 100 Respiratory Rate 20 Blood Pressure Pulse Oximetry 98 10/04/20 04:09 10/04/20 06:00 Temperature 97.7 F Pulse Rate 86 88 Respiratory Rate 20 Blood Pressure 112/70 Pulse Oximetry 99 Intake/Output Intake/Output: Intake & Output 10/01/20 10/02/20 10/03/20 10/04/20 23:59 23:59 23:59 23:59 Intake Total 1020 1710 1880 550 Output Total 900 1150 1050 Balance 120 560 830 550 Meds/Results Medications: Active Medications Generic Name Dose Route Start Last Admin Trade Name Freq PRN Reason Stop Dose Admin Acetaminophen 1,000 mg 10/01/20 09:30 10/02/20 08:48 Acetaminophen 500 Mg Tablet PO 1,000 mg BID PRN Administration Pain Albuterol 2.5 mg 10/02/20 23:23 10/03/20 17:06 Albuterol Sulfate Neb 2.5 Mg/0.5 Ml Inh INHALATION 2.5 mg Q4HRT PRN Administration Shortness Of Breath Albuterol 2.5 mg 10/03/20 08:00 10/03/20 21:42 Albuterol Sulfate Neb 2.5 Mg/0.5 Ml Inh INHALATION 2.5 mg [id number] MELISSA Administration Atorvastatin Calcium 80 mg 10/01/20 21:00 10/03/20 21:11 Atorvastatin 40 Mg Tablet PO 80 mg HS MELISSA Administration Carbidopa/Levodopa 1 tablet 10/01/20 12:00 10/03/20 21:11 Carbidopa/Levodopa 25/100 Mg Tablet PO 1 tablet 1200,1700,2100 MELISSA Administration Clopidogrel Bisulfate 75 mg 10/01/20 09:30 10/03/20 09:19 Clopidogrel Bisulfate 75 Mg Tablet PO 75 mg DAILY MELISSA Administration Diazepam 10 mg 10/02/20 21:00 10/03/20 21:11 Diazepam (*Crx) 5 Mg Tablet PO 10 mg HS MELISSA Administration Diltiazem HCl 60 mg 10/01/20 09:30 10/04/20 05:55 Diltiazem Hcl 12 Hr 60 Mg Cap.Er.12h PO 60 mg Q8HR MELISSA Administration Fluoxetine HCl 60 mg 10/01/20 09:30 10/03/20 09:18 Fluoxetine Hcl 20 Mg Capsule PO 60 mg DAILY MELISSA Administration Fluticasone Propionate 1 spray 10/01/20 09:30 10/03/20 09:19 Fluticasone Propionate 0.05% Na Spr 16 Gm Btl (*Bkc) NASAL 1 spray DAILY MELISSA Administration Levofloxacin/Dextrose 500 mg in 100 mls @ 100 mls/hr 10/02/20 09:00 10/03/20 10:20 Levaquin 500 Mg/D5w 100 Ml IVPB Infused Q24H MELISSA Infusion Loratadine 10 mg 10/01/20 09:40 10/03/20 09:19 Loratadine 10 Mg Tablet PO 10 mg QAM MELISSA Administration Magnesium Oxide 400
--- NOTE | 2020-10-04 09:03 | PM.DS ---
DS: Admitting Diagnosis Admitting Diagnosis Admitting Diagnosis: Afib with RVR, renal stone DS: Discharge Diagnosis Discharge Diagnosis (1) Right nephrolithiasis: Code(s): N20.0 - Calculus of kidney Status: Acute Assessment and Plan: She had a stent placed by urology this morning. Urine cultures are pending, she was started on levofloxacin by urology. 10/03/20 11:52 patient is 70-year-old female with history of proximal atrial fibrillation and hematuria, initially patient was seen at the [facility] with complaint right flank pain and hematuria CT scan of the abdomen showed 7 mm kidney stone and patient was transferred to the hospital patient was seen by urology and patient had a cystoscopy retrograde pyelogram and stent was placed, on 10/02 patient was feeling better denied any abdominal pain nausea or vomiting, patient with history of proximal atrial fibrillation upon arrival patient developed AFib with RVR patient was started on diltiazem drip the rate was controlled and patient was switched over to p.o. diltiazem, and had been on Eliquis for anticoagulation however due to hematuria her vending machine servicer had stopped the anticoagulation, today 10/03 Urine culture is growing Enterococcus sensitivities pending will continue Rocephin, iron profile showed patient has iron deficiency anemia, will give the patient 1 time dose of Venofer 300 mg, patient is clinically stable denies any complains of abdominal pain nausea or vomiting chest pain palpitation fever or chills, will continue present management will follow-up on the urine sensitivity if remains clinically stable will discharge the patient home tomorrow. (2) Paroxysmal atrial fibrillation: Code(s): I48.0 - Paroxysmal atrial fibrillation Status: Acute Assessment and Plan: This problem is not new for her, she was recently took off anticoagulation by her vending machine servicer due to the hematuria. If her hematuria is completely resolved and her Hb is stable she should be back on AC as soon as it is safe. She is not on RVR anymore, her Cardizem has been resumed. (3) Anemia: Code(s): D64.9 - Anemia, unspecified Status: Acute Assessment and Plan: Not actively bleeding at this time, she probably had some acute blood loss with the hematuria but unclear how severe it was. AC has been stopped by her vending machine servicer. Will send iron stuides, ferritin and occult blood in feces. (4) COPD (chronic obstructive pulmonary disease): Code(s): J44.9 - Chronic obstructive pulmonary disease, unspecified Status: Chronic Assessment and Plan: Stable (5) CAD (coronary artery disease): Code(s): I25.10 - Atherosclerotic heart disease of [place] coronary artery without angina pectoris Status: Chronic Assessment and Plan: This problem is stable, she is on Plavix and a statin. DS: Summary Hospital Course Reason for hospitalization: Chief complaint: Afib with RVR, renal stone Narrative: Miracle Castro is a 70 year old female who presented to the hospital with right flank pain and hematuria, she was transferred from [facility] ER for a urologic evaluation since she was found to have a 7 mm stone. She also had dysuria and frequency. Currently she feels better, denies significant pain, the hematuria has stopped. She also referred nausea and vomiting which are resolved now. Patient denies chest pain, or palpitations, she was on A. Fib with RVR when she got here but now seems that her HR is controlled. She also denies diarrhea, no fever or chills. Hospital Course: 10/03/20 11:52 patient is 70-year-old female with history of proximal atrial fibrillation and hematuria, initially patient was seen at the [facility] with complaint right flank pain and hematuria CT scan of the abdomen showed 7 mm kidney stone and patient was transferred to the hospital jeanette
[2020-10-04] MEDS: PANTOPRAZOLE 40 MG TABLET PO (09:05)
[2020-10-04] MEDS: MAGNESIUM OXIDE 400 MG TABLET PO (09:05)
[2020-10-04] MEDS: CLOPIDOGREL BISULFATE 75 MG TABLET PO (09:05)
[2020-10-04] MEDS: levoFLOXacin 500 MG/D5W 100 ML 500 MG/100 ML BAG 100 MG IVPB (09:05)
[2020-10-04] MEDS: FLUoxetine HCL 20 MG CAPSULE 60 MG PO (09:05)
[2020-10-04] MEDS: polyethylene glycoL 3350 17 GM POWD.PACK PO (09:05)
[2020-10-04] MEDS: predniSONE 10 MG TABLET PO (09:05)
[2020-10-04] MEDS: LORATADINE 10 MG TABLET PO (09:05)
[2020-10-04] MEDS: FLUTICASONE PROPIONATE 0.05% NA SPR 16 GM BTL (*BKC) 1 SPRAY NASAL (09:06)
[2020-10-04] MEDS: CARBIDOPA/LEVODOPA 25/100 MG TABLET 1 TABLET PO (11:28)
--- NOTE | 2020-10-04 14:48 | PCRCNOTE ---
patient did not qualify for home oxygen
== END 2020-10-04 13:33 | disposition home or self-care (01) ==
LOC: ANHIMU 17:51 → ANH2MED 10-02 12:42 → ANHIMU 10-06 15:24
PROVIDERS: Hospitalist; Admitting Provider Family Medicine; PCP Internal Medicine Gastroenterology; Referring Provider Urology; Visit Provider Family Medicine
PROC: (CPT 52352; principal; 2020-10-01 07:30)
DX: N13.2 Hydronephrosis with renal and ureteral calculous obstruction (principal); I48.0 Paroxysmal atrial fibrillation; D64.9 Anemia, unspecified; J44.9 Chronic obstructive pulmonary disease, unspecified; I25.10 Atherosclerotic heart disease of native coronary artery without angina pectoris; N39.0 Urinary tract infection, site not specified; F41.9 Anxiety disorder, unspecified; Z86.73 Personal history of transient ischemic attack (TIA), and cerebral infarction without residual deficits; Z87.891 Personal history of nicotine dependence; K21.9 Gastro-esophageal reflux disease without esophagitis; G20 Parkinson's disease; E66.9 Obesity, unspecified; Z68.32 Body mass index [BMI] 32.0-32.9, adult; Z95.0 Presence of cardiac pacemaker
CPT/HCPCS: 52332; 36415; 71045; 74420; 80048; 81001; 82607; 82728; 82746; 83540; 83550; 83735; 84443; 85025; 85027; 87077; 87086; 87088; 87186; 93306; 94618; 94640; A9270; C1758; C1769; C2617; G0378; G0379; J1756; J1956; J2704; J2920; J3010; J7120; J7512; Q9966

== ENCOUNTER 2020-10-10 17:06 | Emergency (ER) | payer OTHER, SELFPAY ==
--- NOTE | ~2020-10-10 | CT_ITS ---
EXAMINATION: CT abdomen pelvis wo con EXAM DATE: 10/10/2020 19:42 INDICATION: Right groin pain, h/o ureteral stone with stent in. TECHNIQUE: Spiral CT of the abdomen and pelvis was performed without contrast. Axial, coronal and sag ittal images were reviewed. The dose-length product (DLP) for this examination was 603.98 mGy-cm. T he exposure was tailored according to patient size (auto mA exposure control), and iterative reconstr uction (ASIR) was used as additional dose reduction technique. Comparison is made to prior examinatio n from 01/05/2020. FINDINGS: There is a right-sided double-J ureteral stent in position. There is a stone in the right i nferior calyx measuring 10 mm. There is a stone along the distal aspect of the right ureteral stent m easuring 6 mm. No hydronephrosis. No left kidney or ureteral stones. Bladder is unremarkable. The ut erus is not identified and has likely been surgically resected. The bladder is unremarkable. The li uzair, spleen, adrenal glands and pancreas are unremarkable. Gallbladder is unremarkable. No biliary obstruction. There is no retroperitoneal or pelvic lymphadenopathy. There is moderate scattered ar teriosclerotic disease. The appendix is normal. The stomach and small bowel are unremarkable. There is moderate amount of c olonic stool. No free intraperitoneal gas. The heart is normal in size. There are no pericardial or pleural effusions. The lung bases are unremarkable. Mild compression fracture of T11, chronic. IMPRESSION: Right ureteral, calyceal stones. Stent in position and no hydronephrosis. Reviewed, dictated and finalized at location [facility]. TOIR SUPERVISOR IMPRESSION: Right ureteral, calyceal stones. Stent in position and no hydroneph rosis.
[2020-10-10 17:10] VITALS: BP 110/49; PULSE 77; TEMP 35.6; O2SAT 95
--- NOTE | 2020-10-10 19:17 | ED.GENADULT ---
HPI - General Adult General Chief complaint: Unspecified Stated complaint: Gallstones Time Seen by Provider: 10/10/20 19:16 History of Present Illness HPI narrative: Right groin pain since presenting here recently and being found to have a large obstructing right ureteral stone. During that visit she had a ureteral stent placed. She continues to have pain. She also reports dyuria, frequency, urgency. No fever, chills, nausea, vomiting. Related Data Home Medications Medication Instructions Recorded Confirmed albuterol sulfate 2 puff INHALATION Q4H PRN 12/10/19 10/01/20 atorvastatin 80 mg PO HS 12/10/19 10/01/20 carbidopa-levodopa 1 tablet PO TID 12/10/19 10/01/20 clopidogrel [Plavix] 75 mg PO DAILY 12/10/19 10/01/20 diltiazem HCl 60 mg PO TID 12/10/19 10/01/20 fluoxetine 60 mg PO DAILY 12/10/19 10/01/20 fluticasone propionate 1 spray INTRANASAL DAILY 12/10/19 10/01/20 acetaminophen 1,000 mg PO BID PRN 12/11/19 10/01/20 magnesium oxide 400 mg PO BID 01/05/20 10/01/20 albuterol sulfate 2.5 mg INHALATION Q4H PRN 01/06/20 10/01/20 diazepam 10 mg PO HS 01/06/20 10/02/20 Spiriva with HandiHaler 18 mcg INHALATION DAILY 10/01/20 10/01/20 cetirizine [Zyrtec] 10 mg PO DAILY 10/01/20 10/01/20 Allergies Allergy/AdvReac Type Severity Reaction Status Date / Time codeine Allergy Rash Verified 10/03/20 15:52 nitrofurantoin Allergy Unknown Verified 10/03/20 15:52 [From Macrobid] Review of Systems Review of Systems: All systems reviewed & are unremarkable except as noted in HPI and below Constitutional: Constitutional: Denies fever(s) ENT: Reports system reviewed and no additional complaints, except as documented Cardiovascular: Cardiovascular: Denies chest pain Respiratory: Respiratory: Denies dyspnea Gastrointestinal: Gastrointestinal: Reports abdominal pain Genitourinary: Genitourinary: Denies hematuria, Reports urinary frequency and Reports dysuria Neurologic: Reports system reviewed and no additional complaints, except as documented [facility] Past Medical History Medical History Anxiety CAD (coronary artery disease) Cataracts, bilateral COPD (chronic obstructive pulmonary disease) CVA (cerebral vascular accident) 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, with the most recent CVA being July 2019 with right basal ganglia infarct and anterior limb of capsule the patient was hospitalized at [facility] and diagnosed with [place] Depression GERD (gastroesophageal reflux disease) Hyperlipidemia Kidney stone Parkinson disease Paroxysmal atrial fibrillation Normal EF of 63% noted on echo at time of her stroke Subarachnoid hemorrhage The patient had a fall while at [facility] 2 days after her CVA at which time she had 2 small traumatic subarachnoid hemorrhages right frontal, the patient was not started on Eliquis because her repeat CT demonstrated persistent subarachnoid hemorrhages on 08/25/2019 Urinary retention with incomplete bladder emptying UTI (urinary tract infection) Surgical History Surgical History H/O cardiac catheterization History of appendectomy History of loop recorder History of tonsillectomy History of total hysterectomy with bilateral salpingo-oophorectomy (BSO) Family History Family History Mother COPD (chronic obstructive pulmonary disease) Father COPD (chronic obstructive pulmonary disease) Malignant neoplasm of prostate Sibling Acute myocardial infarction Cancer Social History Social History Social History: Code status: Full code per EMR Smoking packs per day: 1 Smoking cigarettes per day: 20.0 Years smoked: 20 Smoking pack-years: 20.00 Smoking status: Former smoker Tobacco type:
[2020-10-10 19:31] VITALS: BP 112/74
[2020-10-10 21:05] LABS: Basophils Percent Auto 0.3 % (0.2-1.2); Eosinophils Absolute Auto 0.3 K/mm3 (0-0.3); Eosinophils Percent Auto 3.4 % (0-4.4); Hematocrit 34.1 % (37.0-47.0); Hemoglobin 9.9 g/dL (12.0-15.0); Immature Granulocyte Absolute 0.07 K/mm3 (0.00-0.031); Immature Granulocyte Percent A 0.7 % (0-0.5); Lymphocytes Absolute Auto 2.65 K/mm3 (0.9-3.2); Mean Corpuscular Hemoglobin 24.4 pg (26-34); Mean Platelet Volume 9.5 fl (7.4-10.4); Monocytes Absolute Auto 0.7 K/mm3 (0.1-0.6); Monocytes Percent Auto 7.3 % (2.6-8.5); Neutrophils Absolute Auto 5.7 K/mm3 (1.3-6.7); Neutrophils Percent Auto 60.3 % (45.5-73.1); Nucleated Red Blood Cells Perc 0.3 % (0.0-0.2); Platelet Count Result 366 k/mm3 (150-375); Red Blood Count 4.06 M/mm3 (4.2-5.4); Red Cell Distribution Width 17.4 % (11.5-14.5); White Blood Count 9.5 K/mm3 (4.5-10.0)
[2020-10-10 21:23] LABS: Alanine Aminotransferase 6 U/L (4-35); Albumin Level 4.1 g/dL (3.5-5.1); Alkaline Phosphatase 83 U/L (38-126); Anion Gap 8 mmol/L (8-16); Aspartate Amino Transferase 24 U/L (14-36); Bilirubin,Total 0.2 mg/dL (0.2-1.3); Blood Urea Nitrogen 22 mg/dL (7-17); Calcium 9.2 mg/dL (8.4-10.2); Carbon Dioxide 31 mmol/L (22-30); Chloride 102 mmol/L (98-107); Estimated CRCL calculation 55 ml/min; Estimated Glomerular Filt Rate > 60; Glucose 117 mg/dL (65-105); Potassium 4.4 mmol/L (3.4-5.0); Sodium 141 mmol/L (137-145)
[2020-10-10] MEDS: HYDROcodone/acetaminophen (*CRX) 5-325 MG TABLET 2 TAB PO (21:39)
--- NOTE | 2020-10-10 21:48 | PC.NURSE ---
patient medicated. work up is done per provider. needs pain meds and will need urine specimen. patient up to BSC. unable to void. bladder scan done. provider aware. drinking ice water now. patient is aware that if she cannot void, wayne will be inserted.
--- NOTE | 2020-10-10 22:25 | PC.NURSE ---
patient sitting on BSC for approximately 20 minutes. unable to void. patient and spouse updated that wayne is ordered. will get supplies.
--- NOTE | 2020-10-10 22:40 | PC.NURSE ---
wayne inserted. tolerated well. specimen sent to lab. patient repositioned in bed.
[2020-10-10 22:47] LABS: Add Urine Microscopic? YES; Appearance Urine Clear (Clear); Bilirubin Urine Negative (Negative); Blood Urine 2+ (Negative); Color Urine Yellow (Yellow); Glucose Urine UA Negative (Negative); Ketones Urine Negative (Negative); Leukocyte Esterase Ur 2+ LEU/UL (Negative); Mucus Urine Rare /lpf; Nitrate Urine Negative (Negative); Protein Urine 2+ mg/dL (Negative); RBC Urine >75 /hpf (0-2); Specific Grav Ur 1.018 (1.001-1.035); Squamous Epithelial Cell Urine Rare /hpf (Few); Urobilinogen Urine Negative mg/dL (<2.0)
== END 2020-10-10 23:15 | disposition home or self-care (01) ==
PROVIDERS: Emergency Provider Emergency Medicine; PCP Nurse Practitioner Women's Health
DX: R33.9 Retention of urine, unspecified (principal); I25.10 Atherosclerotic heart disease of native coronary artery without angina pectoris; Z86.73 Personal history of transient ischemic attack (TIA), and cerebral infarction without residual deficits; J44.9 Chronic obstructive pulmonary disease, unspecified; K21.9 Gastro-esophageal reflux disease without esophagitis; G20 Parkinson's disease; I48.0 Paroxysmal atrial fibrillation; F32.9 Major depressive disorder, single episode, unspecified; F41.9 Anxiety disorder, unspecified; Z87.440 Personal history of urinary (tract) infections; H26.9 Unspecified cataract; Z79.02 Long term (current) use of antithrombotics/antiplatelets; Z87.891 Personal history of nicotine dependence; N20.1 Calculus of ureter
CPT/HCPCS: 36415; 74176; 80053; 81001; 85025; 87086; 99284; A9270

== ENCOUNTER 2020-10-18 20:18 | Observation (INO) | payer OTHER, SELFPAY ==
--- NOTE | ~2020-10-18 | CT_ITS ---
EXAMINATION: CT brain wo con DATE: 10/18/2020 23:36 INDICATION: Altered mental status TECHNIQUE: Computed tomography (CT) of the head was performed without intravenous contrast. Sagittal and coronal reconstructions were performed. The mA was adjusted according to patient size. Iterative reconstruction technique was employed. The dose-length product was 605.33 mGy-cm. COMPARISON: head CT dated 02/04/2020 FINDINGS: Chronic infarct in the right basal ganglia involving the head of the caudate nucleus, lentiform nucle us, intervening anterior limb of the internal capsule and adjacent white matter of the right frontal silva radiata. Additional small old lacunar infarcts involving the head of the left caudate nucleus and left subinsular white matter. No acute intracranial hemorrhage, acute infarction or mass/mass eff ect. There is symmetric prominence of the sulci and subarachnoid spaces overlying the frontal lobes c onsistent with mild to moderate diffuse cerebral volume loss. Mild scattered periventricular and sub cortical white matter hypoattenuation consistent with chronic small vessel ischemic disease. Changes of bilateral intraocular lens replacement. The orbitsand paranasal sinuses are normal. Left mastoid a ir cells are clear. Right mastoid is hyperpneumatized. Intracranial calcified cerebral atherosclerosi s is noted. IMPRESSION: 1. No acute intracranial process. 2. Chronic infarcts at the bilateral basal ganglia, right frontal lobe white matter and left subinsul ar white matter. 3. Frontal lobe predominant atrophy and mild scattered white matter hypoattenuation consistent with c hronic small vessel ischemic disease. Reviewed, dictated and finalized at [facility]. CTION SPECIALIST IMPRESSION: 1. No acute intracranial process. 2. Chronic infarcts at the bilateral basal ganglia, right frontal lobe white ma tter and left subinsular white matter. 3. Frontal lobe predominant atrophy and mild scattered white matter hypoattenua tion consistent with chronic small vessel ischemic disease.
--- NOTE | ~2020-10-18 | XR_ITS ---
EXAMINATION: XR chest 1V portable 10/19/2020 13:51 INDICATION: Wheezing PROCEDURE: AP portable chest COMPARISON: Comparison to multiple prior studies sequentially, with oldest reviewed study dated 12/10. FINDINGS: The lungs are clear. The cardiomediastinal silhouette is within normal limits. There are no pleural effusions. There is no pneumothorax suspected. Pacemaker leads are stable. IMPRESSION: 1: NO ACUTE CARDIOPULMONARY DISEASE. Reviewed, dictated and finalized at location A. OL BUS INSPECTOR
[2020-10-18 20:38] VITALS: BP 101/48; PULSE 86; RESP 16; TEMP 36.9; O2SAT 94
--- NOTE | 2020-10-18 20:59 | ED.ABDPAIN ---
HPI - Abdominal Pain General Chief Complaint: Abdominal Pain Stated Complaint: bladder pain, kidney stones, recent stents placed Time Seen by Provider: 10/18/20 20:57 History of Present Illness HPI narrative: 70 yo female with h/o UTI and kidney stones presents from home for abdominal pain. She has a ureteral stent in place for a kidney stone. She was seen in the ED recently with abdominal pain and found to be in in urinary retention. A wayne was placed at that time. She was seen in urology clinic on Sunday and had the wayne removed and failed to urinate, so it was replaced. She says that today her pain is worse. Her says that she has been confused with dark urine and low grade fevers. He reports that he called the urologist and they told him to bring her in and they would remove the stone. History limited by poor historians. Related Data Home Medications Medication Instructions Recorded Confirmed albuterol sulfate 2 puff INHALATION Q4H PRN 12/10/19 10/19/20 atorvastatin 80 mg PO HS 12/10/19 10/19/20 carbidopa-levodopa 1 tablet PO TID 12/10/19 10/19/20 clopidogrel [Plavix] 75 mg PO DAILY 12/10/19 10/19/20 diltiazem HCl 60 mg PO TID 12/10/19 10/19/20 fluoxetine 60 mg PO DAILY 12/10/19 10/19/20 fluticasone propionate 1 spray INTRANASAL DAILY 12/10/19 10/19/20 acetaminophen 1,000 mg PO BID PRN 12/11/19 10/19/20 magnesium oxide 400 mg PO BID 01/05/20 10/19/20 albuterol sulfate 2.5 mg INHALATION Q4H PRN 01/06/20 10/19/20 diazepam 10 mg PO HS 01/06/20 10/19/20 Spiriva with HandiHaler 18 mcg INHALATION DAILY 10/01/20 10/19/20 cetirizine [Zyrtec] 10 mg PO DAILY 10/01/20 10/19/20 metoprolol tartrate 25 mg PO BID 10/19/20 10/19/20 Allergies Allergy/AdvReac Type Severity Reaction Status Date / Time nitrofurantoin Allergy Unknown Verified 10/03/20 15:52 [From Macrobid] Review of Systems Review of Systems: All systems reviewed & are unremarkable except as noted in HPI and below Constitutional: Constitutional: Reports fever(s) Cardiovascular: Cardiovascular: Denies chest pain Respiratory: Respiratory: Denies dyspnea Gastrointestinal: Gastrointestinal: Reports abdominal pain and Reports nausea Musculoskeletal: Musculoskeletal: Reports back pain Neurologic: Reports confusion [facility] Past Medical History Medical History Anxiety CAD (coronary artery disease) Cataracts, bilateral COPD (chronic obstructive pulmonary disease) CVA (cerebral vascular accident) 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, with the most recent CVA being July 2019 with right basal ganglia infarct and anterior limb of capsule the patient was hospitalized at [facility] and diagnosed with [place] Depression GERD (gastroesophageal reflux disease) Hyperlipidemia Kidney stone Parkinson disease Paroxysmal atrial fibrillation Normal EF of 63% noted on echo at time of her stroke Subarachnoid hemorrhage The patient had a fall while at [facility] 2 days after her CVA at which time she had 2 small traumatic subarachnoid hemorrhages right frontal, the patient was not started on Eliquis because her repeat CT demonstrated persistent subarachnoid hemorrhages on 08/25/2019 Urinary retention with incomplete bladder emptying UTI (urinary tract infection) Surgical History Surgical History H/O cardiac catheterization History of appendectomy History of loop recorder History of tonsillectomy History of total hysterectomy with bilateral salpingo-oophorectomy (BSO) Family History Family History Mother COPD (chronic obstructive pulmonary disease) Father COPD (chronic obstructive pulmonary disease) Malignant neoplasm of prostate Sibling Acute myocardial infarction Cancer Social History Social History (Reviewed 10/18/20 @ 21:1
[2020-10-18 21:04] LABS: Basophils Absolute Auto 0.1 K/mm3 (0.0-0.1); Basophils Percent Auto 0.5 % (0.2-1.2); Eosinophils Absolute Auto 0.3 K/mm3 (0-0.3); Eosinophils Percent Auto 3.2 % (0-4.4); Immature Granulocyte Absolute 0.03 K/mm3 (0.00-0.031); Immature Granulocyte Percent A 0.3 % (0-0.5); Lymphocytes Absolute Auto 1.91 K/mm3 (0.9-3.2); Lymphocytes Percent Auto 20.2 % (18.3-44.2); Mean Corpuscular HGB Conc 30.3 g/dl (32-36); Mean Corpuscular Hemoglobin 25.4 pg (26-34); Mean Corpuscular Volume 83.8 fl (80-100); Mean Platelet Volume 9.7 fl (7.4-10.4); Monocytes Absolute Auto 0.7 K/mm3 (0.1-0.6); Monocytes Percent Auto 7.3 % (2.6-8.5); Neutrophils Absolute Auto 6.5 K/mm3 (1.3-6.7); Neutrophils Percent Auto 68.5 % (45.5-73.1); Platelet Count Result 325 k/mm3 (150-375); Red Blood Count 3.94 M/mm3 (4.2-5.4); Red Cell Distribution Width 17.5 % (11.5-14.5); White Blood Count 9.5 K/mm3 (4.5-10.0)
--- NOTE | 2020-10-18 21:10 | PC.NURSE ---
patient dx last week with kidney stones and urinary retention. patient had wayne placed at that time. followed up with urology on sunday and had cath changed. family states that urine in collection bag seems dark and they believe that patient has a uti and were told to bring patient to er
[2020-10-18 21:16] LABS: Alanine Aminotransferase 8 U/L (4-35); Albumin Level 4.1 g/dL (3.5-5.1); Alkaline Phosphatase 86 U/L (38-126); Anion Gap 10 mmol/L (8-16); Aspartate Amino Transferase 20 U/L (14-36); Bilirubin,Total 0.3 mg/dL (0.2-1.3); Blood Urea Nitrogen 20 mg/dL (7-17); Calcium 9.2 mg/dL (8.4-10.2); Carbon Dioxide 27 mmol/L (22-30); Chloride 103 mmol/L (98-107); Estimated CRCL calculation 34 ml/min; Estimated Glomerular Filt Rate 41; Glucose 142 mg/dL (65-105); Lipase 148 U/L (23-300); Potassium 4.4 mmol/L (3.4-5.0); Sodium 140 mmol/L (137-145)
[2020-10-18 22:51] LABS: Add Urine Microscopic? YES; Appearance Urine Cloudy (Clear); Bilirubin Urine Negative (Negative); Blood Urine 3+ (Negative); Color Urine Yellow (Yellow); Glucose Urine UA Negative (Negative); Ketones Urine Trace mg/dL (Negative); Leukocyte Esterase Ur 3+ LEU/UL (Negative); Mucus Urine Heavy /lpf; Nitrate Urine Negative (Negative); Protein Urine 2+ mg/dL (Negative); RBC Urine >75 /hpf (0-2); Specific Grav Ur 1.026 (1.001-1.035); Squamous Epithelial Cell Urine Occasional /hpf (Few); Urobilinogen Urine Negative mg/dL (<2.0); WBC Urine >75 /hpf
[2020-10-18 23:04] VITALS: RESP 20
[2020-10-18] MEDS: ALBUTEROL SULFATE NEB 2.5 MG/0.5 ML INH 5 MG INHALATION (23:04)
[2020-10-18] MEDS: SODIUM CHLORIDE 0.9% IV 1,000 ML 999 ML IV CONT (23:14)
[2020-10-19] VITALS (14 sets, daily range): BP systolic 103–114; BP diastolic 53–91; PULSE 72–87; RESP 16–20; TEMP 36.1–37; O2SAT 92–100; BMI 31.9
--- NOTE | 2020-10-19 02:10 | ADMGEN ---
This patient, Miracle Castro, was admitted to 3 [facility] Surg Room 317-01. Patient/family oriented to hospital policies and general routines including ID bracelet, bed and alarms, visiting hours, pain management, procedures, bathroom and other care routines, personal items, smoking policy, room service/diet, and visiting hours. Information on how to activate the Rapid Response Team has been discussed. Patient/Family are encouraged to report perceived risks to care and to ask questions if they do not understand what they are told or what they should do.
[2020-10-19] MEDS: LACTATED RINGERS 1,000 ML 125 ML IV CONT (02:19)
--- NOTE | 2020-10-19 07:15 | WPDURCON ---
Assessment and Plan Assessment and plan (1) Right renal stone: Code(s): N20.0 - Calculus of kidney Status: Acute (2) Ureteral stone: Code(s): N20.1 - Calculus of ureter Status: Acute (3) UTI (urinary tract infection): Qualifiers: Urinary tract infection type: catheter-associated UTI Code(s): N39.0 - Urinary tract infection, site not specified Status: Acute Assessment and Plan: Patient with a known right ureteral and right renal stone who was scheduled for definitive intervention on October 29. Admitted with a history and signs of possible urinary tract infection. From the urological standpoint, I would not change anything. Will treat the current infection followed by definitive stone management next week. Urology Consult Note HPI Date Seen: 10/19/20 Requesting Physician: Stefani Rodriguez PA-C Primary Care Provider: Yesika Gomez, POULTRY PROCESSING SUPERVISOR Consult Narrative Narrative: Miracle Castro is a 70 year old female with known 6mm right ureteral and 10mm right renal stone Who had a right ureteral stent placed on October 01, 2020. She is scheduled for definitive stone intervention on Sunday10/29/2020. She is admitted through the ER with confusion, low-grade fever and reports of dark-colored urine. She is having some [id number] right lower quadrant discomfort, likely related to stent irritation. Review of Systems Cardiovascular: Cardiovascular: Denies chest pain, Denies lightheadedness, Denies palpitations and Denies dyspnea Respiratory: Respiratory: Denies dyspnea Gastrointestinal: Gastrointestinal: Denies diarrhea, Denies nausea and Denies vomiting Genitourinary: Genitourinary: Denies hematuria and Denies dysuria Endocrine: Endocrine: Denies palpitations [facility] Past Medical History Medical History Anxiety CAD (coronary artery disease) Cataracts, bilateral COPD (chronic obstructive pulmonary disease) CVA (cerebral vascular accident) 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, with the most recent CVA being July 2019 with right basal ganglia infarct and anterior limb of capsule the patient was hospitalized at [facility] and diagnosed with moyamoya Depression GERD (gastroesophageal reflux disease) Hyperlipidemia Kidney stone Parkinson disease Paroxysmal atrial fibrillation Normal EF of 63% noted on echo at time of her stroke Subarachnoid hemorrhage The patient had a fall while at [facility] 2 days after her CVA at which time she had 2 small traumatic subarachnoid hemorrhages right frontal, the patient was not started on Eliquis because her repeat CT demonstrated persistent subarachnoid hemorrhages on 08/25/2019 Urinary retention with incomplete bladder emptying UTI (urinary tract infection) Surgical History Surgical History H/O cardiac catheterization History of appendectomy History of loop recorder History of tonsillectomy History of total hysterectomy with bilateral salpingo-oophorectomy (BSO) Family History Family History Mother COPD (chronic obstructive pulmonary disease) Father COPD (chronic obstructive pulmonary disease) Malignant neoplasm of prostate Sibling Acute myocardial infarction Cancer Social History Social History Social History: Code status: Full code per EMR Smoking packs per day: 1 Smoking cigarettes per day: 20.0 Years smoked: 30 Smoking pack-years: 30.00 Smoking status: Former smoker Tobacco type: cigarettes Second hand tobacco smoke exposure: No Smoking end date: 08/15/19 Alcohol intake: never Substance use: never Substance use type: does not use Additional living arrangements comments: Since her stroke he
[2020-10-19] MEDS: FLUoxetine HCL 20 MG CAPSULE 60 MG PO (10:22)
[2020-10-19] MEDS: LORATADINE 10 MG TABLET PO (10:22)
[2020-10-19] MEDS: PANTOPRAZOLE 40 MG TABLET PO (10:23)
[2020-10-19] MEDS: MAGNESIUM OXIDE 400 MG TABLET PO ×2 (10:23→20:43)
[2020-10-19] MEDS: METOPROLOL TARTRATE 25 MG TABLET PO ×2 (10:24→20:44)
--- NOTE | 2020-10-19 13:18 | PM.IMHP ---
H&P: HPI History of Present Illness Date/Time: 10/19/20 13:18 Chief complaint: Catherer associated UTI, metabolic encephalopathy Narrative: Miracle Castro is a 70 year old female with a past medical history of COPD on oxygen night, AFib, right renal stone, and Parkinson's who presented emergency room for abdominal pain. The patient states that she started having right lower quadrant abdominal pain a couple nights prior to coming into the emergency room. She describes this pain as a dull and aching pain and is intermittent. She says it happens a couple times a day and is usually around an 8/10. She currently has this pain. She does not usually have a Garcia catheter but was told she needed one in the ER. She has not noticed hematuria, discoloration of her urine or foul-smelling urine. She has a history of hematuria when she was on blood thinners but no longer is on them and has not had any hematuria since. She stated she had a fever at home around 99. She also had nausea vomiting with this pain. She states that she has COPD and she usually uses her nebulizers about 3 times a day. If she does not get these breathing treatments, she develops a cough and wheeze. She says her cough started yesterday. She has not been around anybody with COVID-19. The patient denies dysuria, chills, chest pain, constipation or leg swelling. She is currently at a 7/10 pain at this time. That she had a right ureteral stent placed October 01 2020 due to a known 6 mm right urethral and 10 mm right renal stone and is scheduled to have a definitive stone intervention on Thursday October 29, 2020. Review of Systems Review of Systems: All systems reviewed & are unremarkable except as noted in HPI and below [facility] Past Medical History Medical History (Updated 10/19/20 @ 13:21 by Stefani Rodriguez PA-C) Anxiety CAD (coronary artery disease) Cardiac stent placed last year (2018)per patient Cataracts, bilateral COPD (chronic obstructive pulmonary disease) CVA (cerebral vascular accident) 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, with the most recent CVA being July 2019 with right basal ganglia infarct and anterior limb of capsule the patient was hospitalized at [facility] and diagnosed with moyamoya Depression GERD (gastroesophageal reflux disease) Hyperlipidemia Kidney stone Parkinson disease Paroxysmal atrial fibrillation Normal EF of 63% noted on echo at time of her stroke Subarachnoid hemorrhage The patient had a fall while at [facility] 2 days after her CVA at which time she had 2 small traumatic subarachnoid hemorrhages right frontal, the patient was not started on Eliquis because her repeat CT demonstrated persistent subarachnoid hemorrhages on 08/25/2019 Urinary retention with incomplete bladder emptying UTI (urinary tract infection) Surgical History Surgical History H/O cardiac catheterization History of appendectomy History of loop recorder History of tonsillectomy History of total hysterectomy with bilateral salpingo-oophorectomy (BSO) Family History Family History Mother COPD (chronic obstructive pulmonary disease) Father COPD (chronic obstructive pulmonary disease) Malignant neoplasm of prostate Sibling Acute myocardial infarction Cancer Social History Social History (Updated 10/19/20 @ 13:22 by Stefani Rodriguez PA-C) Social History: Patient quit smoking a year ago but prior to that she smoked 1 pack per day. She does not do drugs or drink alcohol. She would like to be a full code. In the event that she is unable to make decisions for herself, she would like her son, Shin, to make decisions for her Code status: Full code per EMR Smoking packs per day: 1 Smoking cigarettes per day: 20.0 Years smoked: 30 Smoking pack-years: 30.00 Smoking statu
[2020-10-19] MEDS: ALBUTEROL SULFATE NEB 2.5 MG/0.5 ML INH 5 MG INHALATION ×3 (13:30→20:07)
[2020-10-19] MEDS: IPRATROPIUM BR 0.02% INH SOLN 0.5 MG/2.5 ML VIAL INHALATION ×3 (13:30→20:07)
[2020-10-19] MEDS: CARBIDOPA/LEVODOPA 25/100 MG TABLET 1 TABLET PO ×3 (13:32→21:10)
[2020-10-19] MEDS: dilTIAZem HCL 60 MG TABLET PO ×2 (15:01→20:43)
[2020-10-19] MEDS: diazePAM (*CRX) 10 MG TABLET PO (20:42)
[2020-10-19] MEDS: ATORVASTATIN 40 MG TABLET 80 MG PO (20:43)
[2020-10-19] MEDS: MELATONIN 3 MG TABLET PO (20:44)
[2020-10-20] VITALS (8 sets, daily range): BP systolic 110; BP diastolic 60; PULSE 67–107; RESP 18–20; TEMP 36.6; O2SAT 91–94
[2020-10-20] MEDS: IPRATROPIUM BR 0.02% INH SOLN 0.5 MG/2.5 ML VIAL INHALATION ×3 (03:31→13:26)
[2020-10-20] MEDS: ALBUTEROL SULFATE NEB 2.5 MG/0.5 ML INH 5 MG INHALATION ×3 (03:31→13:25)
[2020-10-20] MEDS: dilTIAZem HCL 60 MG TABLET PO ×2 (05:20→12:47)
[2020-10-20 07:53] LABS: Hematocrit 34.6 % (37.0-47.0); Hemoglobin 10.2 g/dL (12.0-15.0); Mean Corpuscular HGB Conc 29.5 g/dl (32-36); Mean Corpuscular Hemoglobin 24.5 pg (26-34); Mean Platelet Volume 10.1 fl (7.4-10.4); Platelet Count Result 283 k/mm3 (150-375); Red Blood Count 4.17 M/mm3 (4.2-5.4); Red Cell Distribution Width 17.3 % (11.5-14.5); White Blood Count 7.7 K/mm3 (4.5-10.0)
[2020-10-20 08:20] LABS: Anion Gap 8 mmol/L (8-16); Blood Urea Nitrogen 14 mg/dL (7-17); Calcium 9.2 mg/dL (8.4-10.2); Carbon Dioxide 30 mmol/L (22-30); Chloride 103 mmol/L (98-107); Estimated CRCL calculation 73 ml/min; Estimated Glomerular Filt Rate > 60; Glucose 105 mg/dL (65-105); Potassium 3.7 mmol/L (3.4-5.0); Sodium 141 mmol/L (137-145)
[2020-10-20] MEDS: FLUoxetine HCL 20 MG CAPSULE 60 MG PO (10:22)
[2020-10-20] MEDS: METOPROLOL TARTRATE 25 MG TABLET PO (10:23)
[2020-10-20] MEDS: PANTOPRAZOLE 40 MG TABLET PO (10:23)
[2020-10-20] MEDS: LORATADINE 10 MG TABLET PO (10:23)
[2020-10-20] MEDS: MAGNESIUM OXIDE 400 MG TABLET PO (10:23)
[2020-10-20] MEDS: CARBIDOPA/LEVODOPA 25/100 MG TABLET 1 TABLET PO (12:46)
--- NOTE | 2020-10-20 14:27 | PM.DS ---
DS: Admitting Diagnosis Admitting Diagnosis Admitting Diagnosis: Catherer associated UTI, metabolic encephalopathy DS: Discharge Diagnosis Discharge Diagnosis (1) Right renal stone: Code(s): N20.0 - Calculus of kidney Status: Acute Assessment and Plan: Known -Received a stent 10/01/20 which is likely the cause of her abdominal pain -Has an appointment for stone extraction 10/29 -Pt not in any pain the time of discharge -Urine culture negative (2) Urinary retention: Code(s): R33.9 - Retention of urine, unspecified Status: Acute Assessment and Plan: Garcia catheter placed in the ER -Urology recommends keeping it in until the stone extraction (3) COPD (chronic obstructive pulmonary disease): Code(s): J44.9 - Chronic obstructive pulmonary disease, unspecified Status: Chronic Assessment and Plan: Chronic at this time -continue breathing treatments and inhalers -patient had some wheezing but she said this is normal and she feels fine -CXR neg (4) Paroxysmal atrial fibrillation: Code(s): I48.0 - Paroxysmal atrial fibrillation Status: Acute Assessment and Plan: Chronic, continue diltiazem -not on anticoagulation due to hematuria in the past (5) Anemia: Code(s): D64.9 - Anemia, unspecified Status: Acute Assessment and Plan: Hemoglobin stable 10.0 (6) Parkinson disease: Code(s): G20 - Parkinson's disease Status: Acute Assessment and Plan: Continue Sinemet -No hallucinations during hospital stay -Alert and oriented x 4 -normal neuro exam DS: Summary Hospital Course Reason for hospitalization: Urinary tension, abdominal pain, possibly TI Hospital Course: Patient is a 70-year-old female with a history of right renal stone with stent placement October 01 who presented emergency room for worsening right sided abdominal pain and confusion with low-grade fevers and dark urine. Vitals in the ER were stable. Initial white blood cell count 9.5, hemoglobin 10.0, hematocrit 33.0, platelets 325. UA suspicious for UTI. Head CT was negative for acute process but showed chronic infarcts and frontal lobe atrophy. Patient was admitted to the hospitalist service and saw urology. Her urine culture was actually negative and the UA was likely abnormal because of the stent. Urology saw the patient and decided to keep the original outpatient date of 10/29 for stone extraction. The patient did not have any pain the day of discharge. She had no hallucinations and was alert and oriented x4 throughout her entire stay. I spoke with Urology about the plan of care. Patient was educated about the worrisome signs and symptoms come back to emergency room for was discharged stable condition. Of note, NUSRAT Garrett has spoken to the about the plan of care as he was concerned about her not getting a stone extraction while she was here. I believe everyone is in agreement at this time Status at Discharge Overall status at discharge: patient is progressing back to baseline Time Spent with Patient Time attestation: Total time spent providing and/or coordinating discharge services:36 min Time spent: Greater than 30 minutes Exam Narrative: Exam Narrative: General:Well developed well nourished patient HEENT: Normocephalic, atraumatic, PERRL, Sclerae anicteric, oral mucosa moist. Neck: Supple Resp: Expiratory wheezing throughout all lung kemp--improved today Heart: RRR with no murmurs Abd: Soft, nontender. No pain to palpation. Positive bowel sounds Skin: Warm and dry Extremities: No swelling, erythema or pain to palpation Neuro: Alert and Oriented x4 . CN 2-12 intact. Able to do rapid alternating movements and [id number]. Strength 5/5 in the upper and lower extremities. No focal neurological deficits. DS: Data Data Completed and Pending Labs on day of discharge: Labs from last 24 hours 10/20/
== END 2020-10-20 15:50 | disposition home or self-care (01) ==
LOC: ANHED 21:11 → ANH3MEDSUR 10-19 02:20
PROVIDERS: Emergency Medicine; Admitting Provider Family Medicine; Emergency Provider Emergency Medicine; PCP Nurse Practitioner Women's Health; Visit Provider Physician Assistant
DX: T83.518A Infection and inflammatory reaction due to other urinary catheter, initial encounter (principal); Y84.6 Urinary catheterization as the cause of abnormal reaction of the patient, or of later complication, without mention of misadventure at the time of the procedure; N20.0 Calculus of kidney; R33.9 Retention of urine, unspecified; N39.0 Urinary tract infection, site not specified; G93.41 Metabolic encephalopathy; R05 Cough; I25.10 Atherosclerotic heart disease of native coronary artery without angina pectoris; D64.9 Anemia, unspecified; J44.9 Chronic obstructive pulmonary disease, unspecified; E78.5 Hyperlipidemia, unspecified; K21.9 Gastro-esophageal reflux disease without esophagitis; F41.8 Other specified anxiety disorders; I48.0 Paroxysmal atrial fibrillation; G20 Parkinson's disease; Z87.891 Personal history of nicotine dependence; Z79.02 Long term (current) use of antithrombotics/antiplatelets
CPT/HCPCS: 36415; 70450; 71045; 80048; 80053; 81001; 83690; 85025; 85027; 87086; 94640; 96365; 99285; A9270; G0378; G0379; J0696; J7030; J7120

== ENCOUNTER 2020-10-27 01:09 | Outpatient (CLI) | payer OTHER, SELFPAY ==
[2020-10-27 18:21] LABS: SARS-CoV-2 RNA PCR Negative
== END 2020-10-27 01:10 | disposition home or self-care (01) ==
LOC: ANHCOVIDDT 01:10
PROVIDERS: PCP Nurse Practitioner Women's Health; Visit Provider Urology
DX: Z01.818 Encounter for other preprocedural examination (principal); Z20.828 Contact with and (suspected) exposure to other viral communicable diseases
CPT/HCPCS: 87635; C9803; U0003

== ENCOUNTER 2020-10-29 01:11 | Day surgery (SDC) | payer OTHER, SELFPAY ==
--- NOTE | 2020-10-22 07:54 | PM.IMHP ---
H&P: HPI History of Present Illness Date/Time: 10/22/20 07:54 Chief complaint: renal stone Narrative: Miracle Castro is a 70 year old female who was originally admitted with sepsis due to right ureteral stone. Stent placed. Admitted for medical issues again right before . UCX negative. Having definative procedure on ureteral stone 10/29/20 Review of Systems Review of Systems: All systems reviewed & are unremarkable except as noted in HPI and below PMFSH Past Medical History Medical History (Updated 10/22/20 @ 07:58 by Emilio Loza MD) Anxiety CAD (coronary artery disease) Cardiac stent placed last year (2018)per patient Cataracts, bilateral COPD (chronic obstructive pulmonary disease) CVA (cerebral vascular accident) 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, with the most recent CVA being July 2019 with right basal ganglia infarct and anterior limb of capsule the patient was hospitalized at [facility] and diagnosed with moyamoya Depression GERD (gastroesophageal reflux disease) Hyperlipidemia Kidney stone Parkinson disease Paroxysmal atrial fibrillation Normal EF of 63% noted on echo at time of her stroke Subarachnoid hemorrhage The patient had a fall while at [facility] 2 days after her CVA at which time she had 2 small traumatic subarachnoid hemorrhages right frontal, the patient was not started on Eliquis because her repeat CT demonstrated persistent subarachnoid hemorrhages on 08/25/2019 Urinary retention with incomplete bladder emptying UTI (urinary tract infection) Surgical History Surgical History H/O cardiac catheterization History of appendectomy History of loop recorder History of tonsillectomy History of total hysterectomy with bilateral salpingo-oophorectomy (BSO) Family History Family History Mother COPD (chronic obstructive pulmonary disease) Father COPD (chronic obstructive pulmonary disease) Malignant neoplasm of prostate Sibling Acute myocardial infarction Cancer Social History Social History (Updated 10/19/20 @ 13:22 by Stefani Rodriguez PA-C) Social History: Patient quit smoking a year ago but prior to that she smoked 1 pack per day. She does not do drugs or drink alcohol. She would like to be a full code. In the event that she is unable to make decisions for herself, she would like her son, Shin, to make decisions for her Code status: Full code per EMR Smoking packs per day: 1 Smoking cigarettes per day: 20.0 Years smoked: 30 Smoking pack-years: 30.00 Smoking status: Former smoker Tobacco type: cigarettes Second hand tobacco smoke exposure: No Smoking end date: 08/15/19 Alcohol intake: never Substance use: never Substance use type: does not use Additional living arrangements comments: Since her stroke her moved back into the house with her to take care of her. She ambulates with a walker at all times. 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 Gender identity (if verbalized by the patient): Female Sexual Orientation (if Verbalized by the Patient): Straight or Heterosexual Spiritual care concerns: No Agree to blood products: Yes Meds Home Medications and Allergies Home Medications Medication Instructions Recorded Confirmed Type albuterol sulfate 2 puff INHALATION Q4H PRN 12/10/19 10/19/20 History atorvastatin 80 mg PO HS 12/10/19 10/19/20 History carbidopa-levodopa 1 tablet PO TID 12/10/19 10/19/20 History clopidogrel [Plavix] 75 mg PO DAILY 12/10/19 10/19/20 History diltiazem HCl 60 mg PO TID 12/10/19 10/19/20 History fluoxetine 60 mg PO DAILY 12/10/19 10/19/20 History fluticasone propionate 1 spray INTRANASAL DAILY 12/10/19 10/19/20 History acetaminophen 1,000 mg PO BID PRN 12/11/19 10/19/20 History sindy
[2020-10-25 09:35] VITALS: BMI 27.3
[2020-10-29] VITALS (9 sets, daily range): BP systolic 99–134; BP diastolic 47–81; PULSE 70–87; RESP 15–25; TEMP 35.8–36.6; O2SAT 93–100
--- NOTE | ~2020-10-29 | XR_ITS ---
EXAMINATION: XR retrograde pyelogram RT DATE: 10/29/2020 09:23 INDICATION: Right internal ureteral stent placement TECHNIQUE: Fluoroscopic images from a right internal ureteral stent placement are submitted for harpreet khan 12 seconds of fluoroscopy time. 4 fluoroscopic images. FINDINGS: There is a right double-J internal ureteral stent projecting in expected position, with proximal Broussard loop at the level of the renal pelvis and distal loop in the pelvis within the bladder lumen. IMPRESSION: 1. Right internal ureteral stent placement. Please refer to real-time procedural findings for mata de paz. Reviewed, dictated and finalized at location B. TRUCTION ASSISTANT IMPRESSION: 1. Right internal ureteral stent placement. Please refer to real-time procedu ral findings for details.
[2020-10-29] MEDS: LACTATED RINGERS 1,000 ML 30 ML IV CONT (07:15)
--- NOTE | 2020-10-29 07:19 | WPDHPUPDATE1 ---
History and Physical Update Update Date/Time: 10/29/20 07:19 History and Physical has been reviewed, including an updated exam of the patient. There are NO changes in the patient's condition. Risks, benefits, and alternatives have been discussed and questions answered. Patient agrees to proceed with procedure.
[2020-10-29] MEDS: ALBUTEROL SULFATE NEB 2.5 MG/3 ML INH INHALATION (07:39)
--- NOTE | 2020-10-29 08:13 | WPDANESEPPF ---
Anes - Initial Pre Proc Eval Procedure: Operation Date: 10/29/20 08:30 Proposed Procedures p Right Ureteroscopy, - Emilio Loza MD s Right Holmium Laser Lithotripsy - Emilio Loza MD Date/Time: 10/29/20 08:13 Surgeon: Emilio Loza MD Pre Op Diagnosis: renal stone Patient Data Age: 70 Gender: F Height: 5 ft 2 in Weight: 75.6 kg Last Vital Signs Temp 96.4 F L 10/29/20 07:31 Pulse 80 10/29/20 07:33 Resp 18 10/29/20 07:33 BP 108/50 L 10/29/20 07:31 Pulse Ox 95 10/29/20 07:31 Allergies Allergy/AdvReac Type Severity Reaction Status Date / Time No Known Allergies Allergy Verified 10/29/20 06:53 Home Medications Medication Instructions Recorded Confirmed Type albuterol sulfate 2 puff INHALATION Q4H PRN 12/10/19 10/29/20 History atorvastatin 80 mg PO HS 12/10/19 10/29/20 History carbidopa-levodopa 1 tablet PO TID 12/10/19 10/29/20 History clopidogrel [Plavix] 75 mg PO DAILY 12/10/19 10/29/20 History diltiazem HCl 120 mg PO TID 12/10/19 10/29/20 History fluticasone propionate 1 spray INTRANASAL DAILY 12/10/19 10/29/20 History acetaminophen 1,000 mg PO BID PRN 12/11/19 10/29/20 History melatonin 3 mg PO HS #30 tablet 12/16/19 10/29/20 Rx sodium chloride [Saline Mist] 1 spray INTRANASAL Q6HR PRN #15 ml 12/16/19 10/29/20 Rx magnesium oxide 400 mg PO BID 01/05/20 10/29/20 History albuterol sulfate 2.5 mg INHALATION TID 01/06/20 10/29/20 History diazepam 10 mg PO HS 01/06/20 10/29/20 History pantoprazole [Protonix] 40 mg PO QAM 42 Days #42 tablet 01/06/20 10/29/20 Rx Spiriva with HandiHaler 18 mcg INHALATION DAILY 10/01/20 10/29/20 History cetirizine [Zyrtec] 10 mg PO HS 10/01/20 10/29/20 History hydrocodone-acetaminophen [Atherton] 1 tablet PO Q6H PRN #10 tablet 10/10/20 10/25/20 Rx metoprolol tartrate 25 mg PO BID 10/19/20 10/29/20 History fluoxetine 40 mg PO QAM 10/25/20 10/29/20 History Patient hx anesthesia problems: none Family hx anesthesia problems: none PMFSH Past Medical History Medical History (Updated 10/22/20 @ 07:58 by Emilio Loza MD) Anxiety CAD (coronary artery disease) Cardiac stent placed last year (2018)per patient Cataracts, bilateral COPD (chronic obstructive pulmonary disease) CVA (cerebral vascular accident) 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, with the most recent CVA being July 2019 with right basal ganglia infarct and anterior limb of capsule the patient was hospitalized at [facility] and diagnosed with moyamoya Depression GERD (gastroesophageal reflux disease) Hyperlipidemia Kidney stone Parkinson disease Paroxysmal atrial fibrillation Normal EF of 63% noted on echo at time of her stroke Subarachnoid hemorrhage The patient had a fall while at [facility] 2 days after her CVA at which time she had 2 small traumatic subarachnoid hemorrhages right frontal, the patient was not started on Eliquis because her repeat CT demonstrated persistent subarachnoid hemorrhages on 08/25/2019 Urinary retention with incomplete bladder emptying UTI (urinary tract infection) Surgical History Surgical History H/O cardiac catheterization History of appendectomy History of loop recorder History of tonsillectomy History of total hysterectomy with bilateral salpingo-oophorectomy (BSO) Family History Family History Mother COPD (chronic obstructive pulmonary disease) Father COPD (chronic obstructive pulmonary disease) Malignant neoplasm of prostate Sibling Acute myocardial infarction Cancer Social History Social History (Updated 10/19/20 @ 13:22 by Stefani Rodriguez PA-C) Social History: Patient quit smoking a year ago but prior to that she smoked 1 pack per day. She does not do drugs or drink alcohol. She would like to be a full code. In the event that she is unable to make decision
--- NOTE | 2020-10-29 08:41 | WPDHPUPDATE1 ---
History and Physical Update Update Date/Time: 10/29/20 08:41 History and Physical has been reviewed, including an updated exam of the patient. There are NO changes in the patient's condition. Risks, benefits, and alternatives have been discussed and questions answered. Patient agrees to proceed with procedure. We will plan on removing her ureteral stone via ureteroscopy.. We may need holmium laser. I may leave her stent out. We may do a voiding trial as well.
[2020-10-29] MEDS: ceFAZolin 2 GM/D5W 50 ML 2 GM/50 ML BAG IVPB (08:49)
[2020-10-29] MEDS: LIDOCAINE HCL 2% GEL UROJET 10 ML PKG MUCOUS MEM (09:00)
--- NOTE | 2020-10-29 09:31 | PM.PROC ---
Procedure Note - Detailed Date of procedure: 10/29/20 Pre-op diagnosis: renal stone Ureteral stone Post-op diagnosis: same Procedure performed: Cystoscopy, right ureteroscopy, holmium laser lithotripsy, stone extraction, retrograde pyelogram Description of procedure: She is correctly identified and informed consent was obtained. She from the operating room. She was given general anesthesia. She was placed in dorsal lithotomy position. Pressure points were padded. She was given appropriate perioperative antibiotics. A time-out performed. Cystoscopy revealed normal-appearing bladder. I grasped the stent with a grasper. I brought the stent out the meatus. I placed a guidewire to the kidney. I then performed rigid ureteroscopy. The stone was easily encountered. I fragmented with holmium laser. I basketed the fragments. There was no trauma to the ureter. I did retrograde pyelogram on the right. There is no extravasation from the ureter. The ureter drained promptly. There is no hydronephrosis. I left the stent out. Her bladder is left with some fluid to help with a voiding trial before discharge. She was awakened and transferred to the PACU in stable condition. Anesthesia: GLMA Surgeon: Emilio Loza MD Estimated blood loss (mL): 0 Drains: No Packing: No Pathology: yes (Stone material) Complications: No immediate complications
--- NOTE | 2020-10-29 10:02 | SUR.PHASEI ---
pt able to urinate on bedpan with pink tinged urine.
--- NOTE | 2020-10-29 10:10 | SUR.PHASEI ---
o2 sat 88%,on room air,o2 2l nc applied with o2 sat 94%.
== END 2020-10-29 11:01 | disposition home or self-care (01) ==
PROVIDERS: PCP Nurse Practitioner Women's Health; Visit Provider Urology
PROC: (CPT 52352; principal; 2020-10-29 08:30)
PROC: (CPT 52356; 2020-10-29 08:30)
DX: N20.1 Calculus of ureter (principal); I48.0 Paroxysmal atrial fibrillation; G20 Parkinson's disease; I25.10 Atherosclerotic heart disease of native coronary artery without angina pectoris; J44.9 Chronic obstructive pulmonary disease, unspecified; K21.9 Gastro-esophageal reflux disease without esophagitis; F41.8 Other specified anxiety disorders; E78.5 Hyperlipidemia, unspecified; Z86.73 Personal history of transient ischemic attack (TIA), and cerebral infarction without residual deficits; Z95.5 Presence of coronary angioplasty implant and graft; Z87.891 Personal history of nicotine dependence; Z79.02 Long term (current) use of antithrombotics/antiplatelets
CPT/HCPCS: 52356; 74420; 82365; 88300; 94640; A9270; C1758; C1769; J0690; J1100; J2250; J2405; J2704; J3010; J7120; Q9966

== ENCOUNTER 2021-07-12 19:02 | Emergency (ER) | payer OTHER, MEDICARE, MEDICAID, SELFPAY ==
--- NOTE | ~2021-07-12 | XR_ITS ---
XR chest 2V DATE: 07/12/2021 19:37 INDICATION: Shortness of breath, chest pain. History of myocardial infarction. TECHNIQUE: AP and lateral views COMPARISON: 10/19/2020 portable AP chest FINDINGS: Left-sided transvenous pacemaker device with leads overlying right atrium and right ventric le. Heart size is within normal range. Calcification of the aortic arch, descending thoracic and abdo rg aorta. No hilar or mediastinal enlargement is detected. No pulmonary infiltrate or consolidation, pleural effusion or pulmonary vascular congestion or pneumo thorax. Diffuse osteopenia. Mild anterior wedge compression fracture deformity of a lower thoracic vertebral body IMPRESSION: No active cardiopulmonary disease Reviewed, dictated and finalized at location A.
[2021-07-12 19:03] VITALS: BP 104/61; PULSE 87; RESP 19
[2021-07-12 19:11] VITALS: PULSE 86; O2SAT 96; O2SAT 97
--- NOTE | 2021-07-12 19:11 | ECG_ITS ---
Measurements Intervals [place] Rate: 87 P: -30 OR: 178 QRS: -72 QRSD: 142 T: 17 QT: 416 QTc: 502 Interpretive Statements ELECTRONIC ATRIAL PACEMAKER RIGHT BUNDLE BRANCH BLOCK LEFT ANTERIOR FASCICULAR BLOCK ABNORMAL ECG Electronically Signed On 07-13-2021 6:26:48 CDT by John Randolph D.O.
[2021-07-12 19:38] LABS: Basophils Percent Auto 0.3 % (0.2-1.2); Eosinophils Absolute Auto 0.2 K/mm3 (0-0.3); Eosinophils Percent Auto 1.3 % (0-4.4); Hemoglobin 11.3 g/dL (12.0-15.0); Immature Granulocyte Absolute 0.02 K/mm3 (0.00-0.031); Immature Granulocyte Percent A 0.2 % (0-0.5); Lymphocytes Absolute Auto 2.35 K/mm3 (0.9-3.2); Lymphocytes Percent Auto 20.4 % (18.3-44.2); Mean Corpuscular HGB Conc 30.5 g/dl (32-36); Mean Corpuscular Hemoglobin 27.1 pg (26-34); Mean Corpuscular Volume 88.7 fl (80-100); Mean Platelet Volume 9.6 fl (7.4-10.4); Monocytes Absolute Auto 0.7 K/mm3 (0.1-0.6); Monocytes Percent Auto 5.9 % (2.6-8.5); Neutrophils Absolute Auto 8.3 K/mm3 (1.3-6.7); Neutrophils Percent Auto 71.9 % (45.5-73.1); Platelet Count Result 300 k/mm3 (150-375); Red Blood Count 4.17 M/mm3 (4.2-5.4); White Blood Count 11.5 K/mm3 (4.5-10.0)
[2021-07-12 19:48] LABS: Anion Gap 6 mmol/L (8-16); Blood Urea Nitrogen 18 mg/dL (7-17); Calcium 9.1 mg/dL (8.4-10.2); Carbon Dioxide 28 mmol/L (22-30); Chloride 101 mmol/L (98-107); Estimated CRCL calculation 48 ml/min; Estimated Glomerular Filt Rate > 60; Glucose 94 mg/dL (65-110); Potassium 3.9 mmol/L (3.4-5.0); Sodium 135 mmol/L (137-145)
[2021-07-12 20:07] VITALS: O2SAT 96
--- NOTE | 2021-07-12 20:38 | PC.NURSE ---
called lab to add on troponin baseline
--- NOTE | 2021-07-12 21:10 | PC.NURSE ---
Called to add on lab specimen
[2021-07-12 21:11] VITALS: BP 98/72; PULSE 83; RESP 20; O2SAT 95
[2021-07-12 22:14] VITALS: BP 103/60; PULSE 86; RESP 16; O2SAT 96
[2021-07-12 22:41] LABS: Troponin I < 0.012 ng/mL (0.000-0.034)
[2021-07-13 00:15] LABS: Troponin I < 0.012 ng/mL (0.000-0.034)
[2021-07-13] MEDS: IPRATROPIUM BR 0.02% INH SOLN 0.5 MG/2.5 ML VIAL INHALATION (00:54)
[2021-07-13] MEDS: ALBUTEROL SULFATE NEB 2.5 MG/0.5 ML INH 5 MG INHALATION (00:54)
[2021-07-13 00:55] VITALS: PULSE 79; RESP 16
[2021-07-13 01:05] VITALS: PULSE 87; RESP 16
--- NOTE | 2021-07-13 01:05 | ED.GENADULT ---
HPI - General Adult General Chief complaint: Chest Pain Stated complaint: cp,sob Time Seen by Provider: 07/12/21 19:45 History of Present Illness HPI narrative: Patient is a 71-year-old female who presents ER with chest pain. Lasted 1 minute. Located beneath her left breast. No radiation. No nausea or vomiting or shortness of breath. No sweats or loss of consciousness. Has history of cardiac stents in 2019. She takes Plavix. Cannot describe any aggravating or alleviating factors of her chest discomfort. She does have pain with palpation and movement. No recent cough or congestion. Related Data Home Medications Medication Instructions Recorded Confirmed albuterol sulfate 2 puff INHALATION Q4H PRN 12/10/19 10/29/20 atorvastatin 80 mg PO HS 12/10/19 10/29/20 carbidopa-levodopa 1 tablet PO TID 12/10/19 10/29/20 clopidogrel [Plavix] 75 mg PO DAILY 12/10/19 10/29/20 diltiazem HCl 120 mg PO TID 12/10/19 10/29/20 fluticasone propionate 1 spray INTRANASAL DAILY 12/10/19 10/29/20 acetaminophen 1,000 mg PO BID PRN 12/11/19 10/29/20 magnesium oxide 400 mg PO BID 01/05/20 10/29/20 albuterol sulfate 2.5 mg INHALATION TID 01/06/20 10/29/20 diazepam 10 mg PO HS 01/06/20 10/29/20 Spiriva with HandiHaler 18 mcg INHALATION DAILY 10/01/20 10/29/20 cetirizine [Zyrtec] 10 mg PO HS 10/01/20 10/29/20 metoprolol tartrate 25 mg PO BID 10/19/20 10/29/20 fluoxetine 40 mg PO QAM 10/25/20 10/29/20 Allergies Allergy/AdvReac Type Severity Reaction Status Date / Time No Known Allergies Allergy Verified 07/12/21 19:15 Review of Systems Review of Systems: All systems reviewed & are unremarkable except as noted in HPI and below Constitutional: Constitutional: Denies chills, Denies fever(s) and Denies weakness ENT: Denies nasal congestion and Denies sore throat Cardiovascular: Cardiovascular: Reports chest pain, Denies rapid heart rate and Denies radiating jaw, neck or arm pain Respiratory: Respiratory: Denies cough, Denies dyspnea and Denies wheezing Gastrointestinal: Gastrointestinal: Denies abdominal pain, Denies nausea and Denies vomiting PMFSH Past Medical History Medical History (Updated 07/13/21 @ 01:13 by Srinath Almao MD) Anxiety CAD (coronary artery disease) Cardiac stent placed last year (2018)per patient Cataracts, bilateral COPD (chronic obstructive pulmonary disease) CVA (cerebral vascular accident) 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, with the most recent CVA being July 2019 with right basal ganglia infarct and anterior limb of capsule the patient was hospitalized at [facility] and diagnosed with moyamoya Depression GERD (gastroesophageal reflux disease) Hyperlipidemia Kidney stone Parkinson disease Paroxysmal atrial fibrillation Normal EF of 63% noted on echo at time of her stroke Subarachnoid hemorrhage The patient had a fall while at [facility] 2 days after her CVA at which time she had 2 small traumatic subarachnoid hemorrhages right frontal, the patient was not started on Eliquis because her repeat CT demonstrated persistent subarachnoid hemorrhages on 08/25/2019 Urinary retention with incomplete bladder emptying UTI (urinary tract infection) Surgical History Surgical History H/O cardiac catheterization History of appendectomy History of loop recorder History of tonsillectomy History of total hysterectomy with bilateral salpingo-oophorectomy (BSO) Family History Family History Mother COPD (chronic obstructive pulmonary disease) Father COPD (chronic obstructive pulmonary disease) Malignant neoplasm of prostate Sibling Acute myocardial infarction Cancer Social History Social History (Updated 10/19/20 @ 13:22 by Stefani Rodriguez PA-C) Social History: Patient quit smoking a year ago but prior to that she smoked 1 pack per da
[2021-07-13 01:30] VITALS: BP 107/59; PULSE 87; RESP 18; O2SAT 100
== END 2021-07-13 01:32 | disposition home or self-care (01) ==
PROVIDERS: Emergency Provider Emergency Medicine; PCP Nurse Practitioner Women's Health
DX: R07.9 Chest pain, unspecified (principal); F41.9 Anxiety disorder, unspecified; I25.10 Atherosclerotic heart disease of native coronary artery without angina pectoris; J44.9 Chronic obstructive pulmonary disease, unspecified; K21.9 Gastro-esophageal reflux disease without esophagitis; E78.5 Hyperlipidemia, unspecified; I48.91 Unspecified atrial fibrillation
CPT/HCPCS: 36415; 71046; 80048; 84484; 85025; 93005; 94640; 99284

== ENCOUNTER 2022-07-01 12:49 | Observation (INO) | payer MEDICARE, MEDICAID, SELFPAY ==
[2022-07-01] VITALS (7 sets, daily range): BP systolic 111–122; BP diastolic 53–58; PULSE 71–84; RESP 15–20; TEMP 36.6–36.8; O2SAT 95–97
--- NOTE | ~2022-07-01 | XR_ITS ---
XR chest 2V DATE: 07/01/2022 13:54 INDICATION: Weakness TECHNIQUE: AP and lateral COMPARISON: 07/12/2021 2 view chest FINDINGS: Left dual-lead pacemaker device, leads overlying right atrium and right ventricle. Heart si ze is within normal range. There is aortic arch calcification. No hilar or mediastinal enlargement. Moderate bilateral hyperinflation. No pulmonary infiltrate or consolidation, pleural effusion or pulm onary vascular congestion or pneumothorax. Osteopenia. Chronic mild loss of height and anterior wedging of a lower thoracic vertebral body. IMPRESSION: No active cardiac pulmonary disease Left dual-lead pacemaker device Reviewed, dictated and finalized at location A.
--- NOTE | ~2022-07-01 | CT_ITS ---
EXAMINATION: CT brain wo con DATE: 07/01/2022 15:52 INDICATION: Confusion, weakness TECHNIQUE: Computed tomography (CT) of the head was performed without intravenous contrast. The mA wa s adjusted according to patient size. Iterative reconstruction technique was employed. Exam dose: 60 5.33 mGy-cm total exam DLP. COMPARISON: 10/18/2020 CT brain FINDINGS: Prominent right chronic infarct involving lentiform nucleus, anterior limb of right interna l capsule, caudate nucleus and adjacent silva radiata the right periventricular area. Chronic left lacunar infarct at lateral aspect of left frontal horn Bilateral carotid siphon internal carotid artery calcifications. There is nonspecific diminished atte nuation cerebral white matter, likely due to chronic small vessel ischemic change. No intracranial mass lesion or hemorrhage, midline shift or mass effect. Mild bilateral basal ganglia calcification. There is prominent frontal cortical cerebral atrophy. No fracture or bone destruction of the cranial vault. Paranasal sinuses and mastoid air cells are unr emarkable since 10/18/2020; minimal pneumatization of the right mastoid. IMPRESSION: Bilateral chronic infarcts and frontal predominant cerebral atrophy; cerebral atheroscle rosis and chronic small vessel ischemic changes of cerebral white matter; no significant change since 10/18/2020 No acute intracranial finding Reviewed, dictated and finalized at Location A. Reviewed, dictated and finalized at location A. IMPRESSION: Bilateral chronic infarcts and frontal predominant cerebral atroph y; cerebral atherosclerosis and chronic small vessel ischemic changes of cerebr al white matter; no significant change since 10/18/2020 No acute intracranial finding
--- NOTE | 2022-07-01 12:56 | ECG_ITS ---
Measurements Intervals [place] Rate: 79 P: 79 [place]: 198 QRS: 118 QRSD: 147 T: 37 QT: 439 QTc: 504 Interpretive Statements ELECTRONIC ATRIAL PACEMAKER RIGHT BUNDLE BRANCH BLOCK [120+ ms QRS DURATION, UPRIGHT V1, 40+ ms S IN I/aVL/V4/V5/V6] LEFT POSTERIOR FASCICULAR BLOCK [QRS AXIS > 109, INFERIOR Q] COMPARED TO ECG 07/12/2021 19:09:51 LEFT POSTERIOR FASCICULAR BLOCK NOW PRESENT Electronically Signed On 07-02-2022 8:16:35 CDT by Oscar Austin M.D.
[2022-07-01 13:32] LABS: Basophils Percent Auto 0.4 % (0.2-1.2); Eosinophils Absolute Auto 0.4 K/mm3 (0-0.3); Eosinophils Percent Auto 3.8 % (0-4.4); Hematocrit 34.8 % (37.0-47.0); Hemoglobin 10.2 g/dL (12.0-15.0); Immature Granulocyte Absolute 0.02 K/mm3 (0.00-0.031); Immature Granulocyte Percent A 0.2 % (0-0.5); Lymphocytes Absolute Auto 1.96 K/mm3 (0.9-3.2); Lymphocytes Percent Auto 20.4 % (18.3-44.2); Mean Corpuscular HGB Conc 29.3 g/dl (32-36); Mean Corpuscular Hemoglobin 24.5 pg (26-34); Mean Corpuscular Volume 83.5 fl (80-100); Mean Platelet Volume 9.7 fl (7.4-10.4); Monocytes Absolute Auto 0.7 K/mm3 (0.1-0.6); Monocytes Percent Auto 7.1 % (2.6-8.5); Neutrophils Absolute Auto 6.5 K/mm3 (1.3-6.7); Neutrophils Percent Auto 68.1 % (45.5-73.1); Platelet Count Result 260 k/mm3 (150-375); Red Blood Count 4.17 M/mm3 (4.2-5.4); Red Cell Distribution Width 15.4 % (11.5-14.5); White Blood Count 9.6 K/mm3 (4.5-10.0)
[2022-07-01 13:44] LABS: Alanine Aminotransferase 7 U/L (6-35); Albumin Level 4.4 g/dL (3.5-5.1); Alkaline Phosphatase 106 U/L (38-126); Anion Gap 10 mmol/L (8-16); Aspartate Amino Transferase 22 U/L (14-36); Bilirubin,Total 0.3 mg/dL (0.2-1.3); Blood Urea Nitrogen 20 mg/dL (7-17); Calcium 9.1 mg/dL (8.4-10.2); Carbon Dioxide 26 mmol/L (22-30); Chloride 103 mmol/L (98-107); Estimated CRCL calculation 69 ml/min; Estimated Glomerular Filt Rate > 60; Glucose 106 mg/dL (65-110); Potassium 3.9 mmol/L (3.4-5.0); Sodium 139 mmol/L (137-145)
[2022-07-01 13:52] LABS: Ovalocytes 2+ (NORMAL); Platelet Estimate Adequate (Adequate)
[2022-07-01 13:53] LABS: Anisocytosis 1+ (NORMAL); Poikilocytosis 1+ (NORMAL)
--- NOTE | 2022-07-01 14:08 | ED.GENADULT ---
HPI - General Adult General Chief complaint: Weakness Stated complaint: weakness Time Seen by Provider: 07/01/22 13:25 History of Present Illness HPI narrative: 71-year-old female with past medical history of Parkinson's disease, CAD, COPD, HLD, SAH, A. fib, urinary retention with recurrent urinary tract infections presents to our department for evaluation of 2 days of feeling cloudy and somewhat confused as well as generalized weakness. Patient does admit that this may be progression of her Parkinson's but feels that it has gotten much worse over the past 2 days. The weakness she feels has caused her to have a couple of falls but they are not bad ones and she has always caught herself and not fallen all the way to the ground. Related Data Home Medications Medication Instructions Recorded Confirmed albuterol sulfate 90 mcg/actuation 2 puff inhalation Q4H PRN Wheezing 12/10/19 07/11/22 aerosol inhaler atorvastatin 80 mg tablet 80 mg PO HS 12/10/19 07/11/22 carbidopa 25 mg-levodopa 100 mg 1 tablet PO TID 12/10/19 07/11/22 tablet clopidogrel 75 mg tablet (Plavix) 75 mg PO HS 12/10/19 07/11/22 fluticasone propionate 50 1 spray intranasal DAILY 12/10/19 07/11/22 mcg/actuation nasal spray,suspension magnesium oxide 400 mg (241.3 mg 400 mg PO BID 01/05/20 07/11/22 magnesium) tablet fluoxetine 40 mg capsule 60 mg PO QAM 10/25/20 07/11/22 pantoprazole 40 mg tablet,delayed 40 mg PO DAILY 07/11/22 07/11/22 release sotalol 80 mg tablet 80 mg PO BID 07/11/22 07/11/22 tiotropium bromide 2.5 2 puff inhalation DAILY 07/11/22 07/11/22 mcg/actuation mist for inhalation (Spiriva Respimat) Allergies Allergy/AdvReac Type Severity Reaction Status Date / Time No Known Allergies Allergy Verified 07/10/22 10:52 Review of Systems Review of Systems: All systems reviewed & are unremarkable except as noted in HPI and below PMFSH Past Medical History Medical History (Updated 07/17/22 @ 19:20 by Sharri Barillas, JOHN) Anxiety Anxiety and depression Cataracts, bilateral Cerebrovascular accident CVA of the left basal ganglia and internal capsule, with the most recent CVA being July 2019 with right basal ganglia infarct and anterior limb of capsule the patient was hospitalized at [facility] and diagnosed with moyamoya. Chronic anemia Chronic obstructive pulmonary disease Coronary artery disease (2019) History of cardiac stents. Deafness in right ear Depression Gastroesophageal reflux disease Hyperlipidemia Hypertension Kidney abscess Kidney stone Obstructive sleep apnea on CPAP Pacemaker Parkinson disease Paroxysmal atrial fibrillation Normal EF of 63% noted on echo at time of her stroke Subarachnoid hemorrhage The patient had a fall while at [facility] 2 days after her CVA at which time she had 2 small traumatic subarachnoid hemorrhages right frontal, the patient was not started on Eliquis because her repeat CT demonstrated persistent subarachnoid hemorrhages on 08/25/2019. Urinary retention with incomplete bladder emptying Urinary tract infection Surgical History Surgical History History of appendectomy History of bilateral cataract extraction History of cardiac catheterization History of loop recorder History of tonsillectomy History of total hysterectomy with bilateral salpingo-oophorectomy (BSO) Family History Family History Mother COPD (chronic obstructive pulmonary disease) Father COPD (chronic obstructive pulmonary disease) Malignant neoplasm of prostate Sibling Acute myocardial infarction Cancer Social History Social History Social History: The patient is , lives in a senior apartment. She is but her does not live with her at this time. She is a reti
[2022-07-01 14:50] LABS: Appearance Urine Clear (Clear); Bilirubin Urine Negative (Negative); Blood Urine Negative (Negative); Color Urine Yellow (Yellow); Glucose Urine UA Negative (Negative); Ketones Urine Negative (Negative); Leukocyte Esterase Ur Trace LEU/UL (Negative); Nitrate Urine Negative (Negative); Protein Urine Negative (Negative); Urobilinogen Urine 0.2 mg/dL (<2.0)
[2022-07-01 14:58] LABS: Bacteria Urine Trace /hpf; Mucus Urine Rare /lpf; Squamous Epithelial Cell Urine Rare /hpf (Few)
[2022-07-01 14:59] LABS: Add Urine Microscopic? YES
[2022-07-01 17:47] LABS: Troponin I < 0.012 ng/mL (0.000-0.034)
--- NOTE | 2022-07-01 18:15 | PM.IMHP ---
H&P: HPI History of Present Illness Date/Time: 07/01/22 18:15 Chief Complaint: Weakness. Narrative: This is a chronically ill 71-year-old female with history of stroke, subarachnoid hemorrhage, Parkinson's disease, coronary artery disease, paroxysmal atrial fibrillation, COPD, and other comorbidities who presented to the emergency department via EMS from home for evaluation of weakness. She was recently hospitalized at [facility] for urinary tract infection after presenting with similar complaints. Since discharge she has felt better but ?not back to 100%.? This afternoon she when out to run errands and when she returned to her assisted living apartment she had difficulties finding her keys and she reports pending several minutes going to her purse in order to find the keys. Unfortunately with the heat and her health, she started to feel weak in the legs and she fell down onto her buttocks. She did not sustain any injuries in the fall and there was no head trauma or loss of consciousness. She was unable to get herself up, even with the help of a neighbor, and emergency services were summoned. It should be noted that the patient has not needed assistive devices for ambulating up until the last couple of weeks when she has been trying to use a walker due to progressive weakness. also notes that her gait it has worsened over the last year or so and it sounds as though she shuffles when she walks. In the emergency department has been unrevealing aside from chronic findings. Initially she was to be discharged home however she then began complaining of mid chest heaviness and given her history she is being admitted for closer monitoring. At the time of my evaluation she has no specific complaints aside from being hungry. She is not currently having any chest pain. She denies vertigo, syncope, presyncope, focal weakness, paresthesias, facial droop, dysarthria, and dysphagia. No fever, chills, sweats, nausea, vomiting, diarrhea, or dysuria. Review of Systems Review of Systems: Twelve systems were reviewed and are negative except for as per HPI. [facility] Past Medical History Medical History (Updated 07/01/22 @ 20:38 by Perla Dunn PA-C) Anxiety Anxiety and depression Cataracts, bilateral Cerebrovascular accident CVA of the left basal ganglia and internal capsule, with the most recent CVA being July 2019 with right basal ganglia infarct and anterior limb of capsule the patient was hospitalized at [facility] and diagnosed with moyamoya. Chronic anemia Chronic obstructive pulmonary disease Coronary artery disease (2019) History of cardiac stents. Depression Gastroesophageal reflux disease Hyperlipidemia Hypertension Kidney abscess Kidney stone Obstructive sleep apnea on CPAP Pacemaker Parkinson disease Paroxysmal atrial fibrillation Normal EF of 63% noted on echo at time of her stroke Subarachnoid hemorrhage The patient had a fall while at [facility] 2 days after her CVA at which time she had 2 small traumatic subarachnoid hemorrhages right frontal, the patient was not started on Eliquis because her repeat CT demonstrated persistent subarachnoid hemorrhages on 08/25/2019. Urinary retention with incomplete bladder emptying Urinary tract infection Surgical History Surgical History (Updated 07/01/22 @ 20:33 by Perla Dunn PA-C) History of appendectomy History of bilateral cataract extraction History of cardiac catheterization History of loop recorder History of tonsillectomy History of total hysterectomy with bilateral salpingo-oophorectomy (BSO) Family History Family History Mother COPD (chronic obstructive pulmonary disease) Father COPD (chronic obstructive pulmonary disease) Malignant neoplasm of prostate Sibling Acute myocardial infarction Cancer Social History Social History (Upd
[2022-07-01 18:25] LABS: SARS-CoV-2 RNA PCR Negative
[2022-07-01 18:44] LABS: Troponin I < 0.012 ng/mL (0.000-0.034)
--- NOTE | 2022-07-01 20:00 | ADMGEN ---
This patient, Miracle Mazariegos, was admitted to 2 Medical Room 242-. Patient/family oriented to hospital policies and general routines including ID bracelet, bed and alarms, visiting hours, pain management, procedures, bathroom and other care routines, personal items, smoking policy, room service/diet, and visiting hours. Information on how to activate the Rapid Response Team has been discussed. Patient/Family are encouraged to report perceived risks to care and to ask questions if they do not understand what they are told or what they should do.
[2022-07-01] MEDS: CARBIDOPA/LEVODOPA 25/100 MG TABLET 1 TABLET PO (21:32)
[2022-07-01] MEDS: ATORVASTATIN 40 MG TABLET 80 MG PO (21:32)
[2022-07-01] MEDS: METOPROLOL TARTRATE 25 MG TABLET PO (21:33)
[2022-07-01] MEDS: dilTIAZem HCL 60 MG TABLET 120 MG PO (21:34)
[2022-07-01] MEDS: MELATONIN 3 MG TABLET PO (21:35)
[2022-07-01] MEDS: LORATADINE 10 MG TABLET PO (21:35)
[2022-07-01 21:51] LABS: Troponin I < 0.012 ng/mL (0.000-0.034)
[2022-07-02] VITALS (15 sets, daily range): BP systolic 98–110; BP diastolic 52–61; PULSE 72–82; RESP 12–18; TEMP 36.4–36.6; O2SAT 93–99
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
[2022-07-02 05:10] LABS: Hematocrit 34.5 % (37.0-47.0); Hemoglobin 10.1 g/dL (12.0-15.0); Mean Corpuscular HGB Conc 29.3 g/dl (32-36); Mean Corpuscular Hemoglobin 24.5 pg (26-34); Mean Corpuscular Volume 83.5 fl (80-100); Mean Platelet Volume 9.7 fl (7.4-10.4); Platelet Count Result 259 k/mm3 (150-375); Red Blood Count 4.13 M/mm3 (4.2-5.4); Red Cell Distribution Width 15.6 % (11.5-14.5)
[2022-07-02 05:11] LABS: Alanine Aminotransferase 13 U/L (6-35); Alkaline Phosphatase 100 U/L (38-126); Anion Gap 8 mmol/L (8-16); Aspartate Amino Transferase 29 U/L (14-36); Bilirubin,Total 0.2 mg/dL (0.2-1.3); Blood Urea Nitrogen 20 mg/dL (7-17); Carbon Dioxide 28 mmol/L (22-30); Chloride 103 mmol/L (98-107); Estimated CRCL calculation 69 ml/min; Estimated Glomerular Filt Rate > 60; Glucose 105 mg/dL (65-110); Magnesium 1.9 mg/dL (1.6-2.3); Potassium 3.7 mmol/L (3.4-5.0); Sodium 139 mmol/L (137-145)
[2022-07-02] MEDS: dilTIAZem HCL 60 MG TABLET 120 MG PO ×2 (06:33→14:13)
[2022-07-02] MEDS: ALBUTEROL SULFATE NEB 2.5 MG/3 ML INH INHALATION ×2 (07:25→12:19)
[2022-07-02] MEDS: METOPROLOL TARTRATE 25 MG TABLET PO (09:26)
[2022-07-02] MEDS: MAGNESIUM OXIDE 400 MG TABLET PO (09:27)
[2022-07-02] MEDS: CLOPIDOGREL BISULFATE 75 MG TABLET PO (09:27)
[2022-07-02] MEDS: FLUTICASONE PROPIONATE 0.05% NA SPR 16 GM BTL (*BKC) 1 SPRAY NASAL (09:27)
[2022-07-02] MEDS: FLUoxetine HCL 20 MG CAPSULE 60 MG PO (09:27)
[2022-07-02] MEDS: CARBIDOPA/LEVODOPA 25/100 MG TABLET 1 TABLET PO (11:59)
[2022-07-02] MEDS: polyethylene glycoL 3350 17 GM POWD.PACK PO (11:59)
[2022-07-02] MEDS: UMECLIDINIUM BROMIDE 62.5 MCG ELLIPTA 1 PUFF INHALATION (12:19)
--- NOTE | 2022-07-02 14:40 | PM.DS ---
DS: Admitting Diagnosis Discharge Date July 02, 2022 Admitting Diagnosis Weakness DS: Discharge Diagnosis Discharge Diagnosis (1) Chest pain: Code(s): R07.9 - Chest pain, unspecified Status: Acute Assessment and Plan: Patient had an episode of self-limiting heaviness in the mid chest while in the emergency department. She had no other associated symptoms and it resolved without intervention. Given her risk factors however she is being admitted overnight for observation. Initial troponin was negative. EKG shows a paced rhythm. (2) Fall from standing: Code(s): W19.XXXA - Unspecified fall, initial encounter Status: Acute Assessment and Plan: Patient reports falling onto her buttocks after standing outside of her door looking for her keys for approximately 2 minutes. She reports that her legs became weak and shaky, causing her to fall. She actually has pretty good strength on exam but with her Parkinson's and gait instability she would likely benefit from PT/OT consultation. Initiate fall precautions. Check orthostatic vital signs. (3) Generalized weakness: Code(s): R53.1 - Weakness Status: Acute Assessment and Plan: Patient and her state that she has become progressively more weak and has not bounced back since her most recent hospitalization 2 weeks ago. Vital signs, labs, and imaging are all unremarkable for acute findings. Likely due to progression of Parkinson. (4) Chronic anemia: Code(s): D64.9 - Anemia, unspecified Status: Acute Assessment and Plan: Hemoglobin and hematocrit are stable on review of previous labs. (5) Parkinson disease: Code(s): G20 - Parkinson's disease Status: Acute Assessment and Plan: Continue carbidopa levodopa. (6) Hypertension: Code(s): I10 - Essential (primary) hypertension Status: Acute Assessment and Plan: Blood pressures were reviewed and they are stable. Continue antihypertensives and monitor. (7) Chronic obstructive pulmonary disease: Code(s): J44.9 - Chronic obstructive pulmonary disease, unspecified Status: Acute Assessment and Plan: No acute issues. Continue maintenance inhalers. (8) Coronary artery disease: Onset Date: 2018 Code(s): I25.10 - Atherosclerotic heart disease of [place] coronary artery without angina pectoris Status: Acute Assessment and Plan: Continue dual anti-platelet therapy, statin, and beta-ora. DS: Summary Hospital Course Hospital Course: 71-year-old female with past medical history significant for stroke, subarachnoid hemorrhage, Parkinson's disease, paroxysmal atrial fibrillation as well as other comorbidities presented to the ER for evaluation of weakness. She recently had a UTI treated inpatient [facility] where she felt similarly. She states she just does not feel back to normal yet. She states when she was trying to find her keys she felt so weak she felt like she had to sit down and kind of fell onto her buttocks. She did not sustain any injuries but was unable to get herself back up. Due to her Parkinson's, her gait has been worsening over the last year to the point where she needs to use assisting devices either a walker or cane. She is starting to have the characteristic shuffling gait. PT/OT were consulted for further assistance in gentle IV fluid hydration was given as there was an element of dehydration thought to contribute to patient's symptoms. PT thought that she would be best served with going back home to her assisted living facility and having physical therapy outpatient. She was discharged in good condition with close outpatient follow-up by her primary care physician. Time Spent with Patient Time attestation: Total time spent providing and/or coordinating discharge services: Exam Narrative: General: Well-developed femal
[2022-07-03 06:23] LABS: Free T4 Free Thyroxine Reflex 0.99 ng/dL (0.78-2.19)
[2022-07-03 07:08] LABS: Total Triiodothyronine (T3) 1.24 NG/ML (0.97-1.69)
== END 2022-07-02 15:40 | disposition home or self-care (01) ==
LOC: ANHED 13:41 → ANH2MED 19:07
PROVIDERS: Emergency Medicine; Physician Assistant; Admitting Provider Student in an Organized Health Care Education/Training Program; Emergency Provider Emergency Medicine; PCP Internal Medicine Gastroenterology; Visit Provider Student in an Organized Health Care Education/Training Program
DX: R07.9 Chest pain, unspecified (principal); W19.XXXA Unspecified fall, initial encounter; R53.1 Weakness; D64.9 Anemia, unspecified; G20 Parkinson's disease; I10 Essential (primary) hypertension; J44.9 Chronic obstructive pulmonary disease, unspecified; I25.10 Atherosclerotic heart disease of native coronary artery without angina pectoris; R33.9 Retention of urine, unspecified; N39.0 Urinary tract infection, site not specified; F32.A Depression, unspecified; K21.9 Gastro-esophageal reflux disease without esophagitis; I48.0 Paroxysmal atrial fibrillation; I45.2 Bifascicular block; E78.5 Hyperlipidemia, unspecified; Z95.0 Presence of cardiac pacemaker; Z91.81 History of falling; Z20.822 Contact with and (suspected) exposure to COVID-19; Z95.5 Presence of coronary angioplasty implant and graft; Z87.442 Personal history of urinary calculi; Z86.73 Personal history of transient ischemic attack (TIA), and cerebral infarction without residual deficits; Z87.891 Personal history of nicotine dependence; Z79.51 Long term (current) use of inhaled steroids; Z79.02 Long term (current) use of antithrombotics/antiplatelets; Z79.1 Long term (current) use of non-steroidal anti-inflammatories (NSAID); Z79.2 Long term (current) use of antibiotics; Z79.891 Long term (current) use of opiate analgesic; Z79.899 Other long term (current) drug therapy; Z83.6 Family history of other diseases of the respiratory system
CPT/HCPCS: 36415; 70450; 71046; 80053; 81001; 83735; 84439; 84443; 84480; 84484; 85025; 85027; 93005; 94640; 97161; 99285; A9270; C9803; G0378; G0379; U0003; U0005

== ENCOUNTER 2022-07-10 23:52 | Inpatient (IN) | payer MEDICARE, MEDICAID, SELFPAY ==
--- NOTE | ~2022-07-10 | CT_ITS ---
EXAMINATION: CT abdomen pelvis w con DATE: 07/11/2022 02:05 INDICATION: Fever, nausea, vomiting and leukocytosis. TECHNIQUE: Computed tomography (CT) of the abdomen and pelvis was performed with 100 cc Omnipaque 350 intravenous contrast. The dose-length product was 347.53 mGy-cm. Automated exposure control and iter ative reconstruction technique were employed. COMPARISON: CT dated 10/10/2020. FINDINGS: There is extensive airspace consolidation in the right middle and lower lobe, consistent wi th pneumonia. Heart size normal. No significant pleural or pericardial effusion. Moderate atherosclerosis. There is stenosis at the origin of the left renal artery. The liver, spleen , pancreas, adrenal glands and right kidney are unremarkable. Subcentimeter hypodensity in the left k idney, most likely benign cysts. Nonobstructive bowel gas pattern. Normal appendix. No abnormal pelvi c masses or fluid collections. No free air or free fluid. IMPRESSION: 1. Right middle and lower lobe pneumonia. Consider aspiration in the appropriate clinical setting. Reviewed, dictated and finalized at location B. IMPRESSION: 1. Right middle and lower lobe pneumonia. Consider aspiration in the appropriat e clinical setting.
--- NOTE | ~2022-07-10 | XR_ITS ---
EXAMINATION: XR chest 1V portable DATE: 07/11/2022 01:14 INDICATION: Wheezing. Restlessness. TECHNIQUE: frontal view of the chest was obtained. COMPARISON: Chest radiograph dated 07/01/2022 FINDINGS: New airspace opacities in the right lower lung zone. No pleural effusion or pneumothorax. The cardiom ediastinal silhouette is within normal limits accounting for AP technique and slight rightward rotati on of the patient. Dual lead pacemaker seen with leads projecting over the expected locations of the right atrium and right ventricle. IMPRESSION: 1. New opacities in the right lower lung zone concerning for pneumonia or aspiration versus less like ly atelectasis or asymmetric pulmonary edema. Reviewed, dictated and finalized at location A. IMPRESSION: 1. New opacities in the right lower lung zone concerning for pneumonia or aspir ation versus less likely atelectasis or asymmetric pulmonary edema.
--- NOTE | ~2022-07-10 | XR_ITS ---
EXAMINATION: XR barium swallow modified DATE: 07/11/2022 10:33 INDICATION: Possible aspiration TECHNIQUE: Modified barium esophagram was performed by myself to administered fluoroscopy, in conjun ction with speech pathologist who administered barium in varying consistencies as per speech patholog ist documentation. This was recorded on tape. A single fluoroscopic spot image was recorded. The DAP for this procedure was 1.663 Gycm2. Fluoroscopy exposure time was 2.5 minutes. FINDINGS: Oral stage: Adequate function. Pharyngeal phase: Vallecular and piriform sinus residue. Laryngeal penetration: None. Aspiration: None. Laryngeal sensitivity: Not applicable. IMPRESSION: Vallecular and piriform sinus residue. Please refer to speech pathologist findings and sp ecific feeding recommendations. Reviewed, dictated and finalized at location A. IMPRESSION: Vallecular and piriform sinus residue. Please refer to speech patho logist findings and specific feeding recommendations.
--- NOTE | ~2022-07-10 | CT_ITS ---
EXAMINATION: CT brain wo con DATE: 07/11/2022 02:05 INDICATION: Status post fall. Nausea and vomiting. Leukocytosis. TECHNIQUE: Computed tomography (CT) of the head was performed without intravenous contrast. The dose- length product was 605.33 mGy-cm. Automated exposure control and iterative reconstruction technique w ere employed. COMPARISON: 07/01/2022 FINDINGS: Generalized atrophy. There are scattered . Mild periventricular and subcortical white matte r changes, most likely related to small vessel ischemic disease (microangiopathy). Stable chronic jillian ateral lacunar infarctions. Stable left parietal infarction of the centrum semiovale bowel. No acute infarction, hemorrhage, mass or mass effect. Paranasal sinuses and mastoids are pneumatized. No depre ssed skull fractures. IMPRESSION: 1. No acute intracranial abnormality. No significant change from prior examination. Reviewed, dictated and finalized at location B. IMPRESSION: 1. No acute intracranial abnormality. No significant change from prior examinat ion.
[2022-07-10 23:53] VITALS: BP 145/56; PULSE 94; RESP 20; TEMP 37.1; O2SAT 93
[2022-07-11] VITALS (22 sets, daily range): BP systolic 95–145; BP diastolic 40–94; PULSE 69–93; RESP 16–37; TEMP 36.3–39.6; O2SAT 93–99; BMI 28.0
--- NOTE | 2022-07-11 00:04 | ECG_ITS ---
Measurements Intervals [place] Rate: 92 P: 101 MT: 131 QRS: 136 QRSD: 133 T: 40 QT: 369 QTc: 457 Interpretive Statements ELECTRONIC ATRIAL PACEMAKER SINUS RHYTHM WITH OCCASIONAL SUPRAVENTRICULAR PREMATURE COMPLEXES ARM LEADS REVERSED [INVERTED P AND QRS IN I] RIGHT BUNDLE BRANCH BLOCK COMPARED TO ECG 07/01/2022 12:55:14 SINUS RHYTHM NOW PRESENT Electronically Signed On 07-11-2022 8:48:22 CDT by Reed Ramos M.D.
--- NOTE | 2022-07-11 00:20 | PC.NURSE ---
PT WHEEZING, DISCUSSED HOME O2 USE, STATES SHE NORMALLY WEARS HOME O2. PLACED ON 2 L NC O2 AND SAT UPRIGHT.
--- NOTE | 2022-07-11 00:21 | ED.AMS ---
HPI - Altered Mental Status General Chief Complaint: Altered Mental Status <Stefani Flower PA-C - Last Filed: 07/11/22 02:24> Stated Complaint: AMS <Stefani Flower PA-C - Last Filed: 07/11/22 02:24> Time Seen by Provider: 07/11/22 00:16 <Stefani Flower PA-C - Last Filed: 07/11/22 02:24> Source: patient and old records reviewed <STEFF Espino Last Filed: 07/11/22 02:24> Mode of arrival: EMS <STEFF Espino Last Filed: 07/11/22 02:24> Limitations: no limitations <STEFF Espino Last Filed: 07/11/22 02:24> History of Present Illness HPI narrative: Patient is a 72-year-old female who presents the ED via EMS with report of altered mental status. Per EMS report, patient lives alone. Her , who does not live with her, could not get a hold of her tonight and called EMS for a well check. EMS felt patient was slightly confused and brought her in for further evaluation. Patient did have a large episode of emesis upon arrival to the ED. She denies any nausea upon my evaluation. A&O x3 upon my evaluation, but somewhat slow to answer questions. She does report she fell today and hit her head. Denied any LOC. Denies any abdominal pain. No chest pain or difficulty breathing. Patient admitted to the hospital recently 07/01-07/02 for weakness, confusion, chest pain. <STEFF Espino Last Filed: 07/11/22 02:24> Related Data Home Medications: Home Medications Medication Instructions Recorded Confirmed albuterol sulfate 90 mcg/actuation 2 puff inhalation Q4H PRN Wheezing 12/10/19 07/01/22 aerosol inhaler atorvastatin 80 mg tablet 80 mg PO HS 12/10/19 07/01/22 carbidopa 25 mg-levodopa 100 mg 1 tablet PO TID 12/10/19 07/01/22 tablet clopidogrel 75 mg tablet (Plavix) 75 mg PO DAILY 12/10/19 07/01/22 diltiazem HCl 60 mg 120 mg PO TID 12/10/19 07/01/22 capsule,extended release 12 hr fluticasone propionate 50 1 spray intranasal DAILY 12/10/19 07/01/22 mcg/actuation nasal spray,suspension acetaminophen 500 mg tablet 1,000 mg PO BID PRN Pain 12/11/19 07/01/22 magnesium oxide 400 mg (241.3 mg 400 mg PO BID 01/05/20 07/01/22 magnesium) tablet albuterol sulfate 2.5 mg/3 mL 2.5 mg inhalation TID 01/06/20 07/01/22 (0.083 %) solution for nebulization cetirizine 10 mg tablet (Zyrtec) 10 mg PO HS 10/01/20 07/01/22 tiotropium bromide 18 mcg capsule 18 mcg inhalation DAILY 10/01/20 07/01/22 with inhalation device (Spiriva with HandiHaler) metoprolol tartrate 25 mg tablet 25 mg PO Q12H 10/19/20 07/01/22 fluoxetine 40 mg capsule 60 mg PO QAM 10/25/20 07/01/22 nitrofurantoin 100 mg PO Q12H 07/01/22 07/01/22 monohydrate/macrocrystals 100 mg capsule <Stefani Flower PA-C - Last Filed: 07/11/22 02:24> Allergies/Adverse Reactions: Allergies Allergy/AdvReac Type Severity Reaction Status Date / Time No Known Allergies Allergy Verified 07/10/22 10:52 <Stefani Flower PA-C - Last Filed: 07/11/22 02:24> Review of Systems Review of Systems: CONSTITUTIONAL: Denies fever, chills, or sweats. CARDIOVASCULAR: Denies chest pain. RESPIRATORY: Denies dyspnea. GASTROINTESTINAL: Reports N/V. Denies abdominal pain or diarrhea. NEUROLOGIC: Reports HI. Denies LOC. <Stefani Flower PA-C - Last Filed: 07/11/22 02:24> All systems reviewed & are unremarkable except as noted in HPI and below <Stefani Flower PA-C - Last Filed: 07/11/22 02:24> PMFSH Past Medical History Medical History: Medical History Anxiety Anxiety and depression Cataracts, bilateral Cerebrovascular accident CVA of the left basal ganglia and internal capsule, with the most recent CVA being July 2019 with right basal ganglia infarct and anterior limb of capsule the patient was hospitalized at [facility] and diagnosed with moyamoya. Chronic anemia Chronic obstructive pulmonary disease Coronary
[2022-07-11 00:22] LABS: Basophils Absolute Auto 0.1 K/mm3 (0.0-0.1); Basophils Percent Auto 0.3 % (0.2-1.2); Eosinophils Absolute Auto 0.2 K/mm3 (0-0.3); Eosinophils Percent Auto 1.2 % (0-4.4); Hematocrit 35.5 % (37.0-47.0); Hemoglobin 10.5 g/dL (12.0-15.0); Immature Granulocyte Percent A 0.5 % (0-0.5); Lymphocytes Absolute Auto 1.28 K/mm3 (0.9-3.2); Mean Corpuscular HGB Conc 29.6 g/dl (32-36); Mean Corpuscular Hemoglobin 24.5 pg (26-34); Mean Corpuscular Volume 82.8 fl (80-100); Mean Platelet Volume 9.7 fl (7.4-10.4); Monocytes Percent Auto 5.7 % (2.6-8.5); Neutrophils Absolute Auto 15.5 K/mm3 (1.3-6.7); Neutrophils Percent Auto 85.3 % (45.5-73.1); Platelet Count Result 254 k/mm3 (150-375); Red Blood Count 4.29 M/mm3 (4.2-5.4); Red Cell Distribution Width 15.6 % (11.5-14.5); White Blood Count 18.2 K/mm3 (4.5-10.0)
[2022-07-11 00:32] LABS: INR 1.1; Partial Thromboplastin Time 22.8 SECONDS (22.3-36.8); Prothrombin Time 13.3 Seconds (11.1-14.7)
[2022-07-11 00:34] LABS: Alanine Aminotransferase 24 U/L (6-35); Albumin Level 4.4 g/dL (3.5-5.1); Alkaline Phosphatase 103 U/L (38-126); Anion Gap 11 mmol/L (8-16); Aspartate Amino Transferase 32 U/L (14-36); Bilirubin,Total 0.4 mg/dL (0.2-1.3); Blood Urea Nitrogen 19 mg/dL (7-17); Calcium 9.1 mg/dL (8.4-10.2); Carbon Dioxide 24 mmol/L (22-30); Chloride 101 mmol/L (98-107); Estimated CRCL calculation 59 ml/min; Estimated Glomerular Filt Rate > 60; Glucose 148 mg/dL (65-110); Potassium 4.2 mmol/L (3.4-5.0); Sodium 136 mmol/L (137-145)
[2022-07-11 00:35] LABS: Hypochromasia 1+ (NORMAL); Platelet Estimate Adequate (Adequate)
[2022-07-11 00:39] LABS: Appearance Urine Clear (Clear); Bilirubin Urine Negative (Negative); Blood Urine Negative (Negative); Color Urine Yellow (Yellow); Glucose Urine UA Negative (Negative); Ketones Urine Negative (Negative); Leukocyte Esterase Ur Negative LEU/UL (Negative); Nitrate Urine Negative (Negative); Protein Urine Negative (Negative); Urobilinogen Urine 0.2 mg/dL (<2.0); pH Urine 6.5 (5.0-9.0)
[2022-07-11 00:43] LABS: Mucus Urine Rare /lpf; RBC Urine 0-2 /hpf (0-2); Squamous Epithelial Cell Urine Rare /hpf (Few); WBC Urine 0-3 /hpf
[2022-07-11 00:45] LABS: Lactic Acid Reflex 3.3 mmol/L (0.7-2.0)
[2022-07-11 00:46] LABS: Add Urine Microscopic? YES
[2022-07-11] MEDS: SODIUM CHLORIDE 0.9% IV 1,000 ML 999 ML IV CONT (00:59)
[2022-07-11 01:44] LABS: SARS-CoV-2 RNA PCR Negative
--- NOTE | 2022-07-11 02:47 | PC.NURSE ---
Called legal [facility] [phone] per request and pts permission, gave update on pt status as well as bed information ([id number]).
[2022-07-11 03:30] LABS: Reflex Lactic Acid Yes or No Add Lactic
--- NOTE | 2022-07-11 03:49 | ADMGEN ---
This patient, Miracle Mazariegos, was admitted to [facility] Surg Room 305-01. Patient/family oriented to hospital policies and general routines including ID bracelet, bed and alarms, visiting hours, pain management, procedures, bathroom and other care routines, personal items, smoking policy, room service/diet, and visiting hours. Information on how to activate the Rapid Response Team has been discussed. Patient/Family are encouraged to report perceived risks to care and to ask questions if they do not understand what they are told or what they should do.
[2022-07-11 04:42] LABS: Lactic Acid 2.6 mmol/L (0.7-2.0)
--- NOTE | 2022-07-11 07:26 | PM.IMHP ---
H&P: HPI History of Present Illness Date/Time: 07/11/22 07:26 Chief Complaint: Altered mental status Narrative: Miracle Mazariegos is a 72-year-old female with medical history significant for COPD, coronary artery disease status post stents, paroxysmal AFib status post pacemaker, chronic anemia, ischemic stroke in 2019 with subsequent subarachnoid hemorrhage, and Parkinson disease. The patient presented to the emergency department from home via EMS for evaluation of altered mental status. The patient has been reportedly could not get a hold of the patient and contacted EMS for a well check. The does not live with the . EMS thought the patient was slightly confused and brought her to the ED for further evaluation. Today the patient is awake oriented to person and hospital unable to provide some history , although she is slow to respond and order intermittently confused. The patient does report increasing generalized weakness, fatigue, hat sensation, cough without sputum, shortness of breath with exertion, and 1 large emesis on the day of admission. She reports using her albuterol emergency inhaler for shortness of breaths without relief. The shortness of breath progressed over several days she reports. Of note the patient was last seen at this facility on 07/01 to 07/02 for evaluation of chest pain. She was found to have a UTI and was discharged on Macrobid which she reports completing. She reports no other medication changes. She reports compliance with medications. She reports 1 fall approximately1 week ago but denies loss of consciousness or head injury. She does not know if she had a fever. Denies chest pain, abdominal pain, nausea, diarrhea, flank pain or dysuria. No slurred speech, paresthesia, or unilateral extremity weakness. The patient does live alone. In the emergency department, patient was found to be AO x3 but slow to answer questions. The patient was febrile with temp 103.2 F, HR 94, respirations 30, BP 120/52, SpO2 97% on 2 L nasal cannula. Lab work was significant for leukocytosis with WBC 18.2, hemoglobin 10.5 (see which appears baseline), sodium 136, glucose 148, BUN 19, creatinine 0.7, Lactic acid 3.3, otherwise unremarkable CMP. UA is negative for acute infection. patient is COVID negative. chest x-ray shows new opacities to the right lower lobe concerning for pneumonia versus aspiration. patient was initially treated with IV Rocephin, IV Tylenol 1 g, 1 L IV fluids in the emergency room. She was then treated with IV vancomycin and IV Zosyn upon on-call hospitalist request. The patient will be admitted to the medical floor for further evaluation of sepsis and lobar pneumonia. Review of Systems Gastrointestinal: Gastrointestinal: Reports constipation [facility] Past Medical History Medical History (Updated 07/11/22 @ 16:31 by Sharri Barillas, JOHN) Anxiety Anxiety and depression Cataracts, bilateral Cerebrovascular accident CVA of the left basal ganglia and internal capsule, with the most recent CVA being July 2019 with right basal ganglia infarct and anterior limb of capsule the patient was hospitalized at [facility] and diagnosed with moyamoya. Chronic anemia Chronic obstructive pulmonary disease Coronary artery disease (2019) History of cardiac stents. Deafness in right ear Depression Gastroesophageal reflux disease Hyperlipidemia Hypertension Kidney abscess Kidney stone Obstructive sleep apnea on CPAP Pacemaker Parkinson disease Paroxysmal atrial fibrillation Normal EF of 63% noted on echo at time of her stroke Subarachnoid hemorrhage The patient had a fall while at [facility] 2 days after her CVA at which time she had 2 small traumatic subarachnoid hemorrhages right frontal, the patient was not started on Eliquis because her repeat CT demonstrated persistent subarachnoid hemorrhages on 08/25/2019. Urinary retention with incomplete bladder emptying
[2022-07-11 07:55] LABS: Procalcitonin 0.2 ng/mL
[2022-07-11 09:11] LABS: Lactic Acid Reflex 1.1 mmol/L (0.7-2.0)
[2022-07-11] MEDS: PIPERACILLIN/TAZOBACTAM SOD 4.5 GM in SODIUM CHLORIDE 0.9% IV 100 ML 200 ML IVPB ×4 (09:49→23:26)
[2022-07-11] MEDS: SODIUM CHLORIDE 0.9% IV 1,000 ML 250 ML IV CONT (09:49)
--- NOTE | 2022-07-11 11:02 | PCSTNOTE ---
Modified barium swallow completed. Patient showed no penetration or aspiration with consistencies tested (thin by spoon, straw, cup), puree by spoon, mixed consistency by spoon. Some pooling in valleculae and pyriform sinuses present with thin liquids. Chin tuck and multiple swallows cleared residue. Recommend Level 5 diet, minced and moist, and nectar thickened liquids. Recommend speech therapy to improve swallowing function. Thank you for the referral of this patient.
[2022-07-11] MEDS: CARBIDOPA/LEVODOPA 25/100 MG TABLET 1 TABLET PO ×3 (13:41→20:54)
[2022-07-11] MEDS: dilTIAZem HCL 60 MG TABLET 120 MG PO ×2 (13:42→18:35)
[2022-07-11] MEDS: LACTATED RINGERS 1,000 ML 100 ML IV CONT (15:58)
[2022-07-11] MEDS: IPRATROPIUM BR 0.02% INH SOLN 0.5 MG/2.5 ML VIAL INHALATION (18:57)
[2022-07-11] MEDS: ALBUTEROL SULFATE NEB 2.5 MG/3 ML INH INHALATION (18:57)
[2022-07-11] MEDS: UMECLIDINIUM BROMIDE 62.5 MCG ELLIPTA 1 PUFF INHALATION (19:07)
[2022-07-11] MEDS: FLUTICASONE/SALMETEROL 115-21 MCG INHALER 1 PUFF 2 PUFF INHALATION (19:07)
[2022-07-11] MEDS: SOTALOL HCL 80 MG TABLET PO (20:53)
[2022-07-11] MEDS: ATORVASTATIN 40 MG TABLET 80 MG PO (20:53)
[2022-07-11] MEDS: MAGNESIUM OXIDE 400 MG TABLET PO (20:53)
[2022-07-11] MEDS: CLOPIDOGREL BISULFATE 75 MG TABLET PO (20:54)
[2022-07-11] MEDS: MELATONIN 3 MG TABLET PO (20:54)
[2022-07-12] VITALS (20 sets, daily range): BP systolic 96–112; BP diastolic 41–58; PULSE 73–85; RESP 14–24; TEMP 36.4; O2SAT 92–95
[2022-07-12] MEDS: IPRATROPIUM BR 0.02% INH SOLN 0.5 MG/2.5 ML VIAL INHALATION ×3 (02:21→14:22)
[2022-07-12] MEDS: ALBUTEROL SULFATE NEB 2.5 MG/3 ML INH INHALATION ×4 (02:22→19:59)
[2022-07-12] MEDS: PIPERACILLIN/TAZOBACTAM SOD 4.5 GM in SODIUM CHLORIDE 0.9% IV 100 ML 200 ML IVPB ×2 (05:15→12:17)
[2022-07-12 06:44] LABS: Basophils Percent Auto 0.2 % (0.2-1.2); Eosinophils Absolute Auto 0.2 K/mm3 (0-0.3); Hematocrit 29.2 % (37.0-47.0); Hemoglobin 8.4 g/dL (12.0-15.0); Immature Granulocyte Absolute 0.04 K/mm3 (0.00-0.031); Immature Granulocyte Percent A 0.3 % (0-0.5); Lymphocytes Absolute Auto 1.64 K/mm3 (0.9-3.2); Lymphocytes Percent Auto 13.6 % (18.3-44.2); Mean Corpuscular HGB Conc 28.8 g/dl (32-36); Mean Corpuscular Hemoglobin 24.4 pg (26-34); Mean Corpuscular Volume 84.9 fl (80-100); Mean Platelet Volume 9.8 fl (7.4-10.4); Monocytes Absolute Auto 0.8 K/mm3 (0.1-0.6); Monocytes Percent Auto 6.8 % (2.6-8.5); Neutrophils Absolute Auto 9.3 K/mm3 (1.3-6.7); Neutrophils Percent Auto 77.1 % (45.5-73.1); Platelet Count Result 185 k/mm3 (150-375); Red Blood Count 3.44 M/mm3 (4.2-5.4); Red Cell Distribution Width 15.8 % (11.5-14.5); White Blood Count 12.1 K/mm3 (4.5-10.0)
[2022-07-12 07:11] LABS: Alanine Aminotransferase 6 U/L (6-35); Albumin Level 3.2 g/dL (3.5-5.1); Alkaline Phosphatase 79 U/L (38-126); Anion Gap 8 mmol/L (8-16); Aspartate Amino Transferase 18 U/L (14-36); Bilirubin,Total 0.3 mg/dL (0.2-1.3); Blood Urea Nitrogen 7 mg/dL (7-17); Calcium 8.4 mg/dL (8.4-10.2); Carbon Dioxide 26 mmol/L (22-30); Chloride 104 mmol/L (98-107); Estimated CRCL calculation 67 ml/min; Estimated Glomerular Filt Rate > 60; Glucose 111 mg/dL (65-110); Potassium 3.7 mmol/L (3.4-5.0); Sodium 138 mmol/L (137-145)
[2022-07-12 07:27] LABS: Hypochromasia 1+ (NORMAL); Ovalocytes 1+ (NORMAL); Platelet Estimate Adequate (Adequate)
--- NOTE | 2022-07-12 07:34 | P.PNIM_ITS ---
Progress Note: A&P Assessment and Plan (1) Sepsis: Qualifiers: Sepsis acute organ dysfunction status: unspecified Sepsis type: sepsis due to unspecified organism Qualified Code(s): A41.9 - Sepsis, unspecified o rganism Code(s): A41.9 - Sepsis, unspecified organism Status: Acute Assessment and Plan: On admission: Temp 103.2F, HR 90, RR 30, WBC 18 with chest x-ray documenting acute infection. qSOFA score 2 high risk. * Continue IV broad-spectrum antibiotics * Fluid resuscitation 30 mL/kg on admission. IV fluids saline locked. * Repeat lactic acid 3.3 to 2.6 to 1.1 * procalcitonin 0.2 on 07/11/22 * Continue to monitor hemodynamics. (2) Consolidation of right lower lobe of lung: Code(s): J18.1 - Lobar pneumonia, unspecified organism Status: Acute Assessment and Plan: Recent hospitalization and antibiotic use. May be secondary to aspiration. * Day 2 of broad-spectrum antibiotics. Vancomycin 1 gram Q24 hours- pharmacy to dose. Zosyn 4.5 g Q6 hours * PRN acetaminophen * MRSA nasal swab pending. * Will de-escalate antibiotics to Augmentin 875/125 mg BID x 5 days for presumed aspiration pneumonia. * Repeat CBC tomorrow. * Consider chest x-ray follow up outpatient in 10-14 days after discharge for pneumonia clearing. (3) Acute metabolic encephalopathy: Code(s): G93.41 - Metabolic encephalopathy Status: Acute Assessment and Plan: Likely secondary to acute infection. * Continue sepsis and pneumonia management as above. * Monitor cognitive status * CT head negative for acute changes. * Stable. Appears at baseline. (4) Dysphagia: Code(s): R13.10 - Dysphagia, unspecified Status: Acute Assessment and Plan: Chest X-ray concerning for aspiration pneumonia. Patient reports emesis prior to admission. * Speech therapy eval and treat. * Barium swallow modified showed no penetration or aspiration with consistencies tested (thin by spoon, straw, cup), puree by spoon, mixed consistency by spoon.? Some pooling in valleculae and pyriform sinuses present with thin liquids.? Chin tuck and multiple swallows cleared residue.? * Recommend Level 5 diet, minced and moist, and nectar thickened liquids * Aspiration precautions. (5) Chronic obstructive pulmonary disease: Code(s): J44.9 - Chronic obstructive pulmonary disease, unspecified Status: Chronic Assessment and Plan: She reports intermittent O2 use at home, but is somewhat unreliable. Patient reports could not tolerate CPAP and may have nocturnal O2. * Continue Incruse Ellipta and Advair maintenance inhalers. * Duonebs Q6 hours PRN SOB/wheezing. * Hold systemic steroids for now. * Home oxygen eval if unable to wean from oxygen - Patient weaned to room air today. Will follow. (6) Parkinson disease: Code(s): G20 - Parkinson's disease Status: Chronic Assessment and Plan: Continue carbidopa-levodopa at home dose. (7) Paroxysmal atrial fibrillation: Code(s): I48.0 - Paroxysmal atrial fibrillation Status: Chronic Assessment and Plan: Continue sotalol. Continue diltiazem at home dose as BP tolerates with strict hold parameters. Patient is not on anticoagulation at this time, likely due to frequent falls and prior SAH. HAS-BLED score 4, high risk for major bleeding. (8) Generalized weakness: Code(s): R53.1 - Weakness Status: Acute Assessment and Plan: PT OT consult Fall precautions Case m
--- NOTE | 2022-07-12 07:34 | PM.IMPN ---
Progress Note: A&P Assessment and Plan (1) Sepsis: Qualifiers: Sepsis acute organ dysfunction status: unspecified Sepsis type: sepsis due to unspecified organism Qualified Code(s): A41.9 - Sepsis, unspecified organism Code(s): A41.9 - Sepsis, unspecified organism Status: Acute Assessment and Plan: On admission: Temp 103.2F, HR 90, RR 30, WBC 18 with chest x-ray documenting acute infection. qSOFA score 2 high risk. Continue IV broad-spectrum antibiotics Fluid resuscitation 30 mL/kg on admission. IV fluids saline locked. Repeat lactic acid 3.3 to 2.6 to 1.1 procalcitonin 0.2 on 07/11/22 Continue to monitor hemodynamics. (2) Consolidation of right lower lobe of lung: Code(s): J18.1 - Lobar pneumonia, unspecified organism Status: Acute Assessment and Plan: Recent hospitalization and antibiotic use. May be secondary to aspiration. Day 2 of broad-spectrum antibiotics. Vancomycin 1 gram Q24 hours- pharmacy to dose. Zosyn 4.5 g Q6 hours PRN acetaminophen MRSA nasal swab pending. Will de-escalate antibiotics to Augmentin 875/125 mg BID x 5 days for presumed aspiration pneumonia. Repeat CBC tomorrow. Consider chest x-ray follow up outpatient in 10-14 days after discharge for pneumonia clearing. (3) Acute metabolic encephalopathy: Code(s): G93.41 - Metabolic encephalopathy Status: Acute Assessment and Plan: Likely secondary to acute infection. Continue sepsis and pneumonia management as above. Monitor cognitive status CT head negative for acute changes. Stable. Appears at baseline. (4) Dysphagia: Code(s): R13.10 - Dysphagia, unspecified Status: Acute Assessment and Plan: Chest X-ray concerning for aspiration pneumonia. Patient reports emesis prior to admission. Speech therapy eval and treat. Barium swallow modified showed no penetration or aspiration with consistencies tested (thin by spoon, straw, cup), puree by spoon, mixed consistency by spoon.? Some pooling in valleculae and pyriform sinuses present with thin liquids.? Chin tuck and multiple swallows cleared residue.? Recommend Level 5 diet, minced and moist, and nectar thickened liquids Aspiration precautions. (5) Chronic obstructive pulmonary disease: Code(s): J44.9 - Chronic obstructive pulmonary disease, unspecified Status: Chronic Assessment and Plan: She reports intermittent O2 use at home, but is somewhat unreliable. Patient reports could not tolerate CPAP and may have nocturnal O2. Continue Incruse Ellipta and Advair maintenance inhalers. Duonebs Q6 hours PRN SOB/wheezing. Hold systemic steroids for now. Home oxygen eval if unable to wean from oxygen - Patient weaned to room air today. Will follow. (6) Parkinson disease: Code(s): G20 - Parkinson's disease Status: Chronic Assessment and Plan: Continue carbidopa-levodopa at home dose. (7) Paroxysmal atrial fibrillation: Code(s): I48.0 - Paroxysmal atrial fibrillation Status: Chronic Assessment and Plan: Continue sotalol. Continue diltiazem at home dose as BP tolerates with strict hold parameters. Patient is not on anticoagulation at this time, likely due to frequent falls and prior SAH. HAS-BLED score 4, high risk for major bleeding. (8) Generalized weakness: Code(s): R53.1 - Weakness Status: Acute Assessment and Plan: PT OT consult Fall precautions Case management consult for SNF rehab, which patient is agreeable. (9) Anemia: Code(s): D64.9 - Anemia, unspecified Status: Acute Assessment and Plan: Hemoglobin 10.5/hematocrit 35.5 on admission. Baseline hemoglobin 10-11 mg/dL Hgb 8.4 today, may be a dilutional component. Repeat Hgb 9.0 this afternoon. Iron studies with low serum iron and saturation, suggesting iron deficiency anemia. Start iron supplement. B12,
[2022-07-12] MEDS: UMECLIDINIUM BROMIDE 62.5 MCG ELLIPTA 1 PUFF INHALATION (08:06)
[2022-07-12] MEDS: FLUTICASONE/SALMETEROL 115-21 MCG INHALER 1 PUFF 2 PUFF INHALATION ×2 (08:06→19:58)
[2022-07-12] MEDS: SOTALOL HCL 80 MG TABLET PO ×2 (08:31→20:39)
[2022-07-12] MEDS: FLUTICASONE PROPIONATE 0.05% NA SPR 16 GM BTL (*BKC) 1 SPRAY NASAL (08:31)
[2022-07-12] MEDS: PANTOPRAZOLE 40 MG TABLET PO (08:31)
[2022-07-12] MEDS: dilTIAZem HCL 60 MG TABLET 120 MG PO ×3 (08:32→17:32)
[2022-07-12] MEDS: FLUoxetine HCL 20 MG CAPSULE 60 MG PO (08:32)
[2022-07-12] MEDS: MAGNESIUM OXIDE 400 MG TABLET PO ×2 (08:32→20:38)
--- NOTE | 2022-07-12 09:40 | PCSTNOTE ---
Spoke with nurse and dietary department regarding thin liquids served at breakfast. Order was entered but needed to be worded differently. manager customs is correcting issue. Patient will receive nectar thickened liquids starting now.
[2022-07-12 11:55] LABS: Hematocrit 30.3 % (37.0-47.0)
[2022-07-12 12:04] LABS: Lactate Dehydrogenase 176 U/L (120-246)
[2022-07-12] MEDS: CARBIDOPA/LEVODOPA 25/100 MG TABLET 1 TABLET PO ×3 (12:16→20:38)
[2022-07-12 12:46] LABS: Iron 25 ug/dL (37-170)
[2022-07-12 12:55] LABS: Percent Iron Saturation 6 % (20-50)
[2022-07-12] MEDS: AMOXICILLIN/CLAVULANATE K 875-125 MG TAB 1 TABLET PO (17:32)
[2022-07-12] MEDS: ATORVASTATIN 40 MG TABLET 80 MG PO (20:38)
[2022-07-12] MEDS: MELATONIN 3 MG TABLET PO (20:38)
[2022-07-12] MEDS: CLOPIDOGREL BISULFATE 75 MG TABLET PO (20:38)
[2022-07-13 06:00] VITALS: BP 102/57; PULSE 82; RESP 16; TEMP 36.3; O2SAT 96
[2022-07-13 06:54] LABS: Basophils Percent Auto 0.2 % (0.2-1.2); Eosinophils Absolute Auto 0.2 K/mm3 (0-0.3); Eosinophils Percent Auto 2.5 % (0-4.4); Hematocrit 28.7 % (37.0-47.0); Hemoglobin 8.7 g/dL (12.0-15.0); Immature Granulocyte Absolute 0.03 K/mm3 (0.00-0.031); Immature Granulocyte Percent A 0.3 % (0-0.5); Lymphocytes Absolute Auto 1.38 K/mm3 (0.9-3.2); Lymphocytes Percent Auto 14.8 % (18.3-44.2); Mean Corpuscular HGB Conc 30.3 g/dl (32-36); Mean Corpuscular Hemoglobin 25.1 pg (26-34); Mean Corpuscular Volume 82.7 fl (80-100); Mean Platelet Volume 10.1 fl (7.4-10.4); Monocytes Absolute Auto 0.6 K/mm3 (0.1-0.6); Monocytes Percent Auto 6.4 % (2.6-8.5); Neutrophils Absolute Auto 7.1 K/mm3 (1.3-6.7); Neutrophils Percent Auto 75.8 % (45.5-73.1); Platelet Count Result 208 k/mm3 (150-375); Red Blood Count 3.47 M/mm3 (4.2-5.4); Red Cell Distribution Width 15.7 % (11.5-14.5); White Blood Count 9.4 K/mm3 (4.5-10.0)
[2022-07-13 07:14] LABS: Anion Gap 8 mmol/L (8-16); Blood Urea Nitrogen 7 mg/dL (7-17); Calcium 8.7 mg/dL (8.4-10.2); Carbon Dioxide 27 mmol/L (22-30); Chloride 101 mmol/L (98-107); Estimated CRCL calculation 58 ml/min; Estimated Glomerular Filt Rate > 60; Glucose 122 mg/dL (65-110); Potassium 3.7 mmol/L (3.4-5.0); Sodium 136 mmol/L (137-145)
[2022-07-13] MEDS: UMECLIDINIUM BROMIDE 62.5 MCG ELLIPTA 1 PUFF INHALATION (08:00)
[2022-07-13] MEDS: FLUTICASONE/SALMETEROL 115-21 MCG INHALER 1 PUFF 2 PUFF INHALATION (08:01)
[2022-07-13 08:05] VITALS: O2SAT 96
[2022-07-13 08:16] LABS: Folic Acid 5.3 ng/mL (2.76->20)
[2022-07-13] MEDS: SOTALOL HCL 80 MG TABLET PO (08:37)
[2022-07-13] MEDS: AMOXICILLIN/CLAVULANATE K 875-125 MG TAB 1 TABLET PO (08:37)
[2022-07-13] MEDS: FERROUS SULFATE 324 MG TABLET PO (08:37)
[2022-07-13] MEDS: MAGNESIUM OXIDE 400 MG TABLET PO (08:37)
[2022-07-13] MEDS: FLUTICASONE PROPIONATE 0.05% NA SPR 16 GM BTL (*BKC) 1 SPRAY NASAL (08:37)
[2022-07-13] MEDS: FLUoxetine HCL 20 MG CAPSULE 60 MG PO (08:37)
[2022-07-13] MEDS: PANTOPRAZOLE 40 MG TABLET PO (08:37)
[2022-07-13 11:24] LABS: Hematocrit 29.1 % (37.0-47.0); Hemoglobin 8.7 g/dL (12.0-15.0)
[2022-07-13] MEDS: BISACODYL 10 MG SUPPOSITORY RECTAL (11:54)
[2022-07-13] MEDS: CARBIDOPA/LEVODOPA 25/100 MG TABLET 1 TABLET PO (11:54)
[2022-07-13 13:50] VITALS: BP 116/49; PULSE 79; RESP 16; TEMP 36.2; O2SAT 92
--- NOTE | 2022-07-13 13:52 | PM.DS ---
DS: Admitting Diagnosis Discharge Date 07/13/22 1401 Admitting Diagnosis Sepsis RLL pneumonia Metabolic encephalopathy Dysphagia Generalized weakness DS: Discharge Diagnosis Discharge Diagnosis (1) Sepsis: Qualifiers: Sepsis acute organ dysfunction status: unspecified Sepsis type: sepsis due to unspecified organism Qualified Code(s): A41.9 - Sepsis, unspecified organism Code(s): A41.9 - Sepsis, unspecified organism Status: Acute (2) Consolidation of right lower lobe of lung: Code(s): J18.1 - Lobar pneumonia, unspecified organism Status: Acute (3) Acute metabolic encephalopathy: Code(s): G93.41 - Metabolic encephalopathy Status: Acute (4) Dysphagia: Code(s): R13.10 - Dysphagia, unspecified Status: Acute (5) Generalized weakness: Code(s): R53.1 - Weakness Status: Acute (6) Chronic obstructive pulmonary disease: Code(s): J44.9 - Chronic obstructive pulmonary disease, unspecified Status: Chronic (7) Parkinson disease: Code(s): G20 - Parkinson's disease Status: Chronic (8) Paroxysmal atrial fibrillation: Code(s): I48.0 - Paroxysmal atrial fibrillation Status: Chronic (9) Anemia: Code(s): D64.9 - Anemia, unspecified Status: Chronic DS: Summary Hospital Course Hospital Course: Miracle Mazariegos is a 72-year-old female with medical history significant for COPD, coronary artery disease with previous cardiac stents, paroxysmal AFib s/p pacemaker, chronic anemia, ischemic stroke in 2019 with subsequent subarachnoid hemorrhage, and Parkinson disease.? The patient presented to the emergency department from home via EMS for evaluation of altered mental status.? The patient's reportedly could not get a hold of the patient and contacted EMS for a well check.? The does not live with the .? EMS thought the patient was slightly confused and brought her to the ED for further evaluation.?The patient was AOx2-3, but slow to respond and intermittently confused.? The patient reported increasing generalized weakness, fatigue, hot sensation, cough without sputum, shortness of breath with exertion, and 1 large emesis on the day of admission.? She used her albuterol emergency inhaler for shortness of breaths without relief.? The shortness of breath progressed over several days.? Of note, the patient was last seen at this facility on 07/01 to 07/02 for evaluation of chest pain.? She was found to have a UTI and was discharged on Macrobid which she reported completing.? No other medication changes.? She reported compliance with medications. ? She had 1 fall approximately1 week prior to admission, but denied loss of consciousness or head injury.? No known fever.? No chest pain, abdominal pain, nausea, diarrhea, flank pain or dysuria.? No slurred speech, paresthesia, or unilateral extremity weakness.? The patient does live alone. In the emergency department, patient was found to be AO x3 but slow to answer questions.?She was febrile with temp 103.2 F, HR 94, respirations 30, BP 120/52, SpO2 97% on 2 L nasal cannula.? Lab work was significant for leukocytosis with WBC 18.2, hemoglobin 10.5 (see which appears baseline), sodium 136, glucose 148, BUN 19, creatinine 0.7,? Lactic acid 3.3, otherwise unremarkable?CMP. UA was negative for acute infection. Patient was COVID negative.? chest x-ray showed new opacities to the right lower lobe concerning for pneumonia versus aspiration.? patient was initially treated with IV Rocephin, IV Tylenol 1 g, and 1 L IV fluids in the emergency room.? She was then treated with IV vancomycin and IV Zosyn upon on-call hospitalist request.? The patient will be admitted to the medical floor for further evaluation of sepsis and lobar pneumonia. The patient was continued on IV Zosyn 4.5 mg Q6 hours and IV Vancomycin, pharmacy to dose. Speech therapy was consulted for evaluation. Modified barium stud
[2022-07-13 13:55] VITALS: BP 108/46
[2022-07-13 14:42] LABS: EDCOVIDSCREEN Negative (Negative)
[2022-07-14 16:06] LABS: Homocysteine 8.4 umol/L (<10.4)
[2022-07-15 09:48] LABS: Methylmalonic Acid 84 nmol/L (87-318)
== END 2022-07-13 15:25 | DRG 871 ==
LOC: ANHED 07-11 02:23 → ANH3MEDSUR 07-11 02:29
PROVIDERS: Nurse Practitioner Family; Admitting Provider Internal Medicine; Emergency Provider Emergency Medicine; PCP Physician Assistant; Visit Provider Internal Medicine
DX: A41.9 Sepsis, unspecified organism (principal); J18.1 Lobar pneumonia, unspecified organism; G93.41 Metabolic encephalopathy; J44.0 Chronic obstructive pulmonary disease with (acute) lower respiratory infection; R13.10 Dysphagia, unspecified; I48.0 Paroxysmal atrial fibrillation; G20 Parkinson's disease; I25.10 Atherosclerotic heart disease of native coronary artery without angina pectoris; D50.9 Iron deficiency anemia, unspecified; E78.5 Hyperlipidemia, unspecified; I10 Essential (primary) hypertension; K21.9 Gastro-esophageal reflux disease without esophagitis; R53.1 Weakness; R29.6 Repeated falls; G47.33 Obstructive sleep apnea (adult) (pediatric); H91.91 Unspecified hearing loss, right ear; Z20.822 Contact with and (suspected) exposure to COVID-19; Z86.73 Personal history of transient ischemic attack (TIA), and cerebral infarction without residual deficits; Z95.0 Presence of cardiac pacemaker; Z87.891 Personal history of nicotine dependence; Z79.02 Long term (current) use of antithrombotics/antiplatelets; Z95.5 Presence of coronary angioplasty implant and graft; Z87.440 Personal history of urinary (tract) infections; Z98.41 Cataract extraction status, right eye; Z98.42 Cataract extraction status, left eye; Z90.49 Acquired absence of other specified parts of digestive tract; Z90.710 Acquired absence of both cervix and uterus
CPT/HCPCS: 36415; 51701; 70450; 71045; 74177; 80048; 80053; 81001; 82607; 82728; 82746; 83090; 83540; 83550; 83605; 83615; 83735; 83921; 84145; 85014; 85018; 85025; 85610; 85730; 87040; 87081; 87426; 92526; 92610; 92611; 93005; 94640; 96365; 96367; 97110; 97161; 97165; 97530; 97535; 99285; A9270; C9803; G0378; J0131; J0696; J2543; J3370; J7030; J7120; Q9967; U0003; U0005

== ENCOUNTER 2022-11-14 16:57 | Emergency (ER) | payer MEDICARE, SELFPAY ==
[2022-11-14 17:56] VITALS: BP 114/67; PULSE 78; RESP 16; TEMP 36.2; O2SAT 98
[2022-11-14 20:31] VITALS: O2SAT 94
[2022-11-14 21:50] VITALS: BP 124/76; PULSE 76; RESP 16; TEMP 36.6
[2022-11-14] MEDS: hydrOXYzine HCL 25 MG TABLET PO (22:16)
[2022-11-14 23:56] LABS: Add Urine Microscopic? YES; Appearance Urine Clear (Clear); Bilirubin Urine Negative (Negative); Blood Urine 3+ (Negative); Color Urine Light Yellow (Yellow); Glucose Urine UA Negative (Negative); Ketones Urine Negative (Negative); Leukocyte Esterase Ur 3+ LEU/UL (Negative); Nitrate Urine Positive (Negative); Protein Urine 1+ mg/dL (Negative); Specific Grav Ur 1.015 (1.001-1.035); Urobilinogen Urine 0.2 mg/dL (<2.0); pH Urine 6.5 (5.0-9.0)
[2022-11-15 00:04] LABS: Mucus Urine Rare /lpf; RBC Urine 51-75 /hpf (0-2); Squamous Epithelial Cell Urine Few /hpf (Few); WBC Clumps Urine Present /HPF; WBC Urine >75 /hpf
--- NOTE | 2022-11-15 00:15 | ED.GENADULT ---
HPI - General Adult General Chief complaint: Weakness Stated complaint: been sick Time Seen by Provider: 11/14/22 21:30 History of Present Illness HPI narrative: Patient presents with multiple complaints, mostly about her bedbug bites being quite itchy, she also states that she has noted blood when she wipes and uses the bathroom. She thinks that it may be coming from her vagina or her rectum. No back or abdominal pain, fevers or chills Related Data Home Medications Medication Instructions Recorded Confirmed albuterol sulfate 90 mcg/actuation 2 puff inhalation Q4H PRN Wheezing 12/10/19 07/11/22 aerosol inhaler atorvastatin 80 mg tablet 80 mg PO HS 12/10/19 07/11/22 clopidogrel 75 mg tablet (Plavix) 75 mg PO HS 12/10/19 07/11/22 fluticasone propionate 50 1 spray intranasal DAILY 12/10/19 07/11/22 mcg/actuation nasal spray,suspension magnesium oxide 400 mg (241.3 mg 400 mg PO BID 01/05/20 07/11/22 magnesium) tablet fluoxetine 40 mg capsule 60 mg PO QAM 10/25/20 07/11/22 pantoprazole 40 mg tablet,delayed 40 mg PO DAILY 07/11/22 07/11/22 release sotalol 80 mg tablet 80 mg PO BID 07/11/22 07/11/22 tiotropium bromide 2.5 2 puff inhalation DAILY 07/11/22 07/11/22 mcg/actuation mist for inhalation (Spiriva Respimat) Allergies Allergy/AdvReac Type Severity Reaction Status Date / Time No Known Allergies Allergy Verified 07/10/22 10:52 Review of Systems Review of Systems: CONST: No fever. HEENT: No sore throat C/V: No chest pain RESP: No cough GI: No abdominal pain, nausea or vomiting : Hematuria? M/S: No joint pain. 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 Chronic anemia Chronic obstructive pulmonary disease Coronary artery disease (2019) History of cardiac stents. Deafness in right ear Depression Gastroesophageal reflux disease Hyperlipidemia Hypertension Kidney abscess Kidney stone Obstructive sleep apnea on CPAP Pacemaker Parkinson disease Paroxysmal atrial fibrillation Normal EF of 63% noted on echo at time of her stroke Subarachnoid hemorrhage The patient had a fall while at [facility] 2 days after her CVA at which time she had 2 small traumatic subarachnoid hemorrhages right frontal, the patient was not started on Eliquis because her repeat CT demonstrated persistent subarachnoid hemorrhages on 08/25/2019. Urinary retention with incomplete bladder emptying Urinary tract infection Surgical History Surgical History History of appendectomy History of bilateral cataract extraction History of cardiac catheterization History of loop recorder History of tonsillectomy History of total hysterectomy with bilateral salpingo-oophorectomy (BSO) Family History Family History Mother COPD (chronic obstructive pulmonary disease) Father COPD (chronic obstructive pulmonary disease) Malignant neoplasm of prostate Sibling Acute myocardial infarction Cancer Social History Social History Social History: The patient is , lives in a senior apartment. She is but her does not live with her at this time. 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 Smoked 1 pack of cigarettes a day for 52 years and quit in 2019. No alcohol or illicit substance use. She designates her son, Shin Meza, as her surrogate decision maker and she wishes to b
[2022-11-15] MEDS: NITROFURANTOIN MONOHYD MACROCR 100 MG CAP PO (01:31)
== END 2022-11-15 01:29 | disposition home or self-care (01) ==
PROVIDERS: Emergency Provider Emergency Medicine; PCP Physician Assistant
DX: S80.862A Insect bite (nonvenomous), left lower leg, initial encounter (principal); S80.861A Insect bite (nonvenomous), right lower leg, initial encounter; S40.862A Insect bite (nonvenomous) of left upper arm, initial encounter; S40.861A Insect bite (nonvenomous) of right upper arm, initial encounter; N39.0 Urinary tract infection, site not specified; K64.9 Unspecified hemorrhoids; D64.9 Anemia, unspecified; I25.10 Atherosclerotic heart disease of native coronary artery without angina pectoris; E78.5 Hyperlipidemia, unspecified; I10 Essential (primary) hypertension; G47.33 Obstructive sleep apnea (adult) (pediatric); I48.0 Paroxysmal atrial fibrillation; G20 Parkinson's disease; K21.9 Gastro-esophageal reflux disease without esophagitis; Z98.42 Cataract extraction status, left eye; Z98.41 Cataract extraction status, right eye; Z95.5 Presence of coronary angioplasty implant and graft; Z90.710 Acquired absence of both cervix and uterus; Z90.722 Acquired absence of ovaries, bilateral; Z90.79 Acquired absence of other genital organ(s); Z86.73 Personal history of transient ischemic attack (TIA), and cerebral infarction without residual deficits; Z87.442 Personal history of urinary calculi; Z87.891 Personal history of nicotine dependence; W57.XXXA Bitten or stung by nonvenomous insect and other nonvenomous arthropods, initial encounter; Z79.02 Long term (current) use of antithrombotics/antiplatelets
CPT/HCPCS: 81001; 87077; 87086; 87186; 99283; A9270

== ENCOUNTER 2022-12-13 14:01 | Inpatient (IN) | payer MEDICARE, MEDICAID, SELFPAY ==
[2022-12-13] VITALS (31 sets, daily range): BP systolic 101–128; BP diastolic 45–81; PULSE 69–93; RESP 16–34; TEMP 36.6; O2SAT 89–100; BMI 29.4
--- NOTE | ~2022-12-13 | XR_ITS ---
EXAMINATION: XR chest 2V DATE: 12/13/2022 14:58 INDICATION: Shortness of breath and wheezing. TECHNIQUE: Frontal and lateral views of the chest were obtained. COMPARISON: Chest one view 07/11/2022, CT abdomen and pelvis 07/11/2022 FINDINGS: There is no pneumonia, pleural effusion, or pneumothorax. The heart size is normal. There i s a left chest wall pacer with leads in the right atrium and right ventricle. IMPRESSION: 1. No acute cardiopulmonary disease. Reviewed, dictated and finalized at location A. [employer] C[employer]URAL DEVELOPMENT OFFICER
--- NOTE | ~2022-12-13 | CT_ITS ---
EXAMINATION: CTA brain carotid DATE: 12/13/2022 20:23 INDICATION: Left arm weakness. TECHNIQUE: Computed tomographic angiography (CTA) of the head was performed without and with 100 mL O mnipaque-350 intravenous contrast. CTA of the neck was performed with intravenous contrast. Automated exposure control and iterative reconstruction technique were employed. The dose-length product was 1 699.98 mGy-cm. Maximum intensity projection and volume rendered 3D-reconstructions were created by emil talavera technologist on a separate workstation. COMPARISON: Head CT 07/11/2022, CTA 02/04/2020 FINDINGS: HEAD CTA: There is diffuse brain volume loss. There is an old infarct involving the right basal gangl ia and anterior limb right internal capsule. There is old infarct involving the left basal ganglia an d anterior limb left internal capsule. There is no intracranial hemorrhage, acute infarction, or abno rmal intracranial mass lesion. There is expected dilatation of the bodies of the lateral ventricles. There are likely changes of ocular lens replacement surgeries. The paranasal sinuses are clear. There is a right mastoid effusion. The vertebral arteries are codominant. There is no significant stenosis of basilar artery or the posterior cerebral arteries. There is no significant stenosis of the intrac ranial internal carotid artery or anterior or middle cerebral arteries. Anterior communicating artery is normal. The posterior commuting arteries are normal. There is no aneurysm. NECK CTA: There is mild emphysema. There are nodules and tree-in-bud opacities in the visualized port ions of the lung apices bilaterally with the largest nodule measuring 5 mm in left upper lobe. There are no pathologically enlarged lymph nodes. There is a 6 mm nodule in left thyroid lobe, likely not c linically significant. There is no significant stenosis of the vertebral arteries. There is plaque in the proximal internal carotid arteries. There is 0% stenosis of the proximal right internal carotid artery relative to normal distal artery lumen diameter (NASCET criteria). There is 0% stenosis of the proximal left internal carotid artery relative to normal distal artery lumen diameter. There is mode rate cervical spondylosis. IMPRESSION: 1. Old infarcts involving the bilateral basal ganglia and internal capsules. 2. No aneurysm or significant intracranial arterial stenosis. 3. 0% stenosis of the proximal internal carotid arteries relative to normal distal artery lumen diame ters (NASCET criteria). 4. Nodules and tree-in-bud opacities in the lungs bilaterally, likely infection. 5. Mild emphysema. Reviewed, dictated and finalized at location A. [employer] TELEPHONE ANSWERING SERVICE IMPRESSION: 1. Old infarcts involving the bilateral basal ganglia and internal capsules. 2. No aneurysm or significant intracranial arterial stenosis. 3. 0% stenosis of the proximal internal carotid arteries relative to normal dis ino artery lumen diameters (NASCET criteria). 4. Nodules and tree-in-bud opacities in the lungs bilaterally, likely infection . 5. Mild emphysema.
--- NOTE | ~2022-12-13 | XR_ITS ---
EXAMINATION: XR chest 1V portable Exam Date/Time: 12/16/2022 20:46 LACROSSE PLAYER HISTORY: Respiratory distress Comparison: None available. RESULT: Lines, tubes, and devices: Left chest pacer with intact leads. Lungs and pleura: Mild mid and lower lung reticular opacities and cuffing. No focal consolidation. Cardiomediastinal silhouette: Stable. Other: No acute osseous or upper abdominal finding. IMPRESSION: Pulmonary opacities likely represent mild interstitial edema. Reviewed, dictated and finalized at location K. OSSE PLAYER
--- NOTE | 2022-12-13 14:45 | ECG_ITS ---
Measurements Intervals [place] Rate: 82 P: 114 MI: 167 QRS: 130 QRSD: 133 T: 45 QT: 405 QTc: 475 Interpretive Statements ELECTRONIC ATRIAL PACEMAKER RIGHT AXIS DEVIATION RIGHT BUNDLE BRANCH BLOCK BASELINE ARTIFACT- I, II, III, AVR, AVL, AVF, V1-V3 ABNORMAL ECG COMPARED TO ECG 07/11/2022 00:20:22 NO SIGNIFICANT CHANGES Electronically Signed On 12-13-2022 15:22:45 AEROBICS INSTRUCTOR by John Randolph D.O.
--- NOTE | 2022-12-13 14:50 | PC.NURSE ---
Verbal order from Dr. Chairez for breathing treatment after notification of SOB and wheezing. ED RT notified of ordered breathing treatment.
[2022-12-13] MEDS: IPRATROPIUM BR 0.02% INH SOLN 0.5 MG/2.5 ML VIAL INHALATION ×2 (14:59→19:05)
[2022-12-13] MEDS: ALBUTEROL SULFATE NEB 2.5 MG/3 ML INH 5 MG INHALATION ×2 (14:59→19:05)
--- NOTE | 2022-12-13 15:02 | PC.NURSE ---
RT at bedside to admin breathing tx.
[2022-12-13 15:24] LABS: Basophils Absolute Auto 0.1 K/mm3 (0.0-0.1); Basophils Percent Auto 0.6 % (0.2-1.2); Eosinophils Percent Auto 9.9 % (0-4.4); Hematocrit 39.9 % (37.0-47.0); Immature Granulocyte Absolute 0.02 K/mm3 (0.00-0.031); Immature Granulocyte Percent A 0.2 % (0-0.5); Lymphocytes Absolute Auto 2.49 K/mm3 (0.9-3.2); Lymphocytes Percent Auto 24.1 % (18.3-44.2); Mean Corpuscular HGB Conc 30.1 g/dl (32-36); Mean Corpuscular Hemoglobin 28.2 pg (26-34); Mean Corpuscular Volume 93.9 fl (80-100); Mean Platelet Volume 9.4 fl (7.4-10.4); Monocytes Absolute Auto 0.8 K/mm3 (0.1-0.6); Monocytes Percent Auto 7.5 % (2.6-8.5); Neutrophils Percent Auto 57.7 % (45.5-73.1); Platelet Count Result 261 k/mm3 (150-375); Red Blood Count 4.25 M/mm3 (4.2-5.4); Red Cell Distribution Width 14.4 % (11.5-14.5); White Blood Count 10.3 K/mm3 (4.5-10.0)
[2022-12-13 15:40] LABS: Alanine Aminotransferase 10 U/L (6-35); Albumin Level 4.2 g/dL (3.5-5.1); Alkaline Phosphatase 83 U/L (38-126); Anion Gap 5 mmol/L (8-16); Aspartate Amino Transferase 31 U/L (14-36); Bilirubin,Total 0.4 mg/dL (0.2-1.3); Blood Urea Nitrogen 13 mg/dL (7-17); Calcium 8.3 mg/dL (8.4-10.2); Carbon Dioxide 35 mmol/L (22-30); Chloride 104 mmol/L (98-107); Estimated CRCL calculation 79 ml/min; Estimated Glomerular Filt Rate > 60; Glucose 103 mg/dL (65-110); Potassium 4.3 mmol/L (3.4-5.0); Sodium 144 mmol/L (137-145)
--- NOTE | 2022-12-13 18:20 | ED.GENADULT ---
HPI - General Adult General Chief complaint: Shortness of Breath/Dyspnea Stated complaint: cough Time Seen by Provider: 12/13/22 16:32 Source: patient and family Mode of arrival: wheelchair Limitations: no limitations History of Present Illness HPI narrative: 72-year-old female with past medical history of COPD, hypertension, hyperlipidemia, anxiety, and depression, left-sided CVA who presents with shortness of breath and productive cough that began 1 week ago. She states that she has been been more short of breath on exertion, and has been coughing up white phlegm. She notes subjective fevers and chills. She wears 3 L of oxygen at baseline and during sleep. Denies chest pain, nausea, vomiting, diarrhea, change in appetite. states that he is unable to manage at home wants her to be admitted to the rehab center Onset (ago): week(s) Relieving factors: none Exacerbating factors: none Associated symptoms: denies other symptoms Related Data Home Medications Medication Instructions Recorded Confirmed albuterol sulfate 90 mcg/actuation 2 puff inhalation Q4H PRN Wheezing 12/10/19 07/11/22 aerosol inhaler atorvastatin 80 mg tablet 80 mg PO HS 12/10/19 07/11/22 clopidogrel 75 mg tablet (Plavix) 75 mg PO HS 12/10/19 07/11/22 fluticasone propionate 50 1 spray intranasal DAILY 12/10/19 07/11/22 mcg/actuation nasal spray,suspension magnesium oxide 400 mg (241.3 mg 400 mg PO BID 01/05/20 07/11/22 magnesium) tablet fluoxetine 40 mg capsule 60 mg PO QAM 10/25/20 07/11/22 pantoprazole 40 mg tablet,delayed 40 mg PO DAILY 07/11/22 07/11/22 release sotalol 80 mg tablet 80 mg PO BID 07/11/22 07/11/22 tiotropium bromide 2.5 2 puff inhalation DAILY 07/11/22 07/11/22 mcg/actuation mist for inhalation (Spiriva Respimat) Allergies Allergy/AdvReac Type Severity Reaction Status Date / Time No Known Allergies Allergy Verified 07/10/22 10:52 Review of Systems Review of Systems: All systems reviewed & are unremarkable except as noted in HPI and below Constitutional: Constitutional: Reports no additional constitutional complaints Eyes: Eyes: Reports no additional eye complaints ENT: Reports system reviewed and no additional complaints, except as documented Cardiovascular: Cardiovascular: Reports no additional cardiovascular complaints Respiratory: Respiratory: Reports as per HPI Gastrointestinal: Gastrointestinal: Reports no additional gastrointestinal complaints Musculoskeletal: Musculoskeletal: Reports no additional musculoskeletal complaints Neurologic: Reports system reviewed and no additional complaints, except as documented Psychiatric: Psychiatric: Reports no additional psychiatric complaints PMF Past Medical History Medical History Anxiety Anxiety and depression Cataracts, bilateral Cerebrovascular accident 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 Chronic anemia Chronic obstructive pulmonary disease Coronary artery disease (2018) History of cardiac stents. Deafness in right ear Depression Gastroesophageal reflux disease Hyperlipidemia Hypertension Kidney abscess Kidney stone Obstructive sleep apnea on CPAP Pacemaker Parkinson disease Paroxysmal atrial fibrillation Normal EF of 63% noted on echo at time of her stroke Subarachnoid hemorrhage The patient had a fall while at [facility] 2 days after her CVA at which time she had 2 small traumatic subarachnoid hemorrhages right frontal, the patient was not started on Eliquis because her repeat CT demonstrated persistent subarachnoid hemorrhages on 08/25/2019. Urinary retention with incomplete bladder emptying Urinary tract infection Surgical History Surgical
--- NOTE | 2022-12-13 19:04 | PM.IMHP ---
H&P: HPI History of Present Illness Date/Time: 12/13/22 19:04 Chief Complaint: Shortness of breath Narrative: This is a 72-year-old female patient who has a history of COPD, hypertension, hyperlipidemia and history of CVA with left-sided residual. The patient stated that she has been short of breath and had a productive cough for the last week. She wears 3 L of oxygen during sleep and at baseline. The patient denies any nausea vomiting diarrhea. The patient stated that her left arm is weaker than normal. It was reported that the states that he is unable to manage her at home and wants her to be admitted to the rehab center. Her white count is 10.3 the patient was found to be negative for influenza A/B and COVID. No urinalysis was obtained. Head neck CTA was read as the following1. Old infarcts involving the bilateral basal ganglia and internal capsules. 2. No aneurysm or significant intracranial arterial stenosis. 3. 0% stenosis of the proximal internal carotid arteries relative to normal distal artery lumen diameters (NASCET criteria). 4. Nodules and tree-in-bud opacities in the lungs bilaterally, likely infection. 5. Mild emphysema. Chest x-ray was read as no acute cardiopulmonary disease. The patient was given a nebulizer treatment. The patient is being admitted to observation status on the date of service of 12/13/2022. Review of Systems Review of Systems: See HPI All systems reviewed & are unremarkable except as noted in HPI and below Constitutional: Constitutional: Reports as per HPI and Reports no additional constitutional complaints Eyes: Eyes: Reports as per HPI and Reports no additional eye complaints ENT: Reports system reviewed and no additional complaints, except as documented and Reports Normal hearing present Cardiovascular: Cardiovascular: Reports no additional cardiovascular complaints Respiratory: Respiratory: Reports no additional respiratory complaints and Reports no additional respiratory complaints Gastrointestinal: Gastrointestinal: Reports as per HPI and Reports no additional gastrointestinal complaints Musculoskeletal: Musculoskeletal: Reports no additional musculoskeletal complaints Integumentary/Breasts: Skin/Breast: Reports system reviewed and no additional complaints, except as docu and Reports as per HPI Neurologic: Reports system reviewed and no additional complaints, except as documented, Reports as per HPI and Reports Normal hearing present Psychiatric: Psychiatric: Reports no additional psychiatric complaints and Reports as per HPI Endocrine: Endocrine: Reports no additional endocrine complaints Hematologic/Lymphatic: Hematologic/Lymphatic: Reports no additional hematologic/lymphatic complaints Allergic/Immunologic: Allergic/Immunologic: Reports no additional allergic/immunologic complaints PMFSH Past Medical History Medical History Anxiety Anxiety and depression Cataracts, bilateral Cerebrovascular accident 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 Chronic anemia Chronic obstructive pulmonary disease Coronary artery disease (2018) History of cardiac stents. Deafness in right ear Depression Gastroesophageal reflux disease Hyperlipidemia Hypertension Kidney abscess Kidney stone Obstructive sleep apnea on CPAP Pacemaker Parkinson disease Paroxysmal atrial fibrillation Normal EF of 63% noted on echo at time of her stroke Subarachnoid hemorrhage The patient had a fall while at [facility] 2 days after her CVA at which time she had 2 small traumatic subarachnoid hemorrhages right frontal, the patient was not started on Eliquis because her repeat CT demonstrated persistent subarachnoid hemorrhages
[2022-12-13 19:13] LABS: Influenza A QL RT-PCR Negative (Negative); Influenza B QL RT-PCR Negative (Negative); SARS-CoV-2 RNA PCR Negative
--- NOTE | 2022-12-13 19:13 | PC.NURSE ---
Patient report given to Ivanna ROACH. All questions answered and care of patient transferred .
--- NOTE | 2022-12-13 20:49 | ADMGEN ---
This patient, Miracle Mazariegos, was admitted to Medical Room 250-01. Patient/family oriented to hospital policies and general routines including ID bracelet, bed and alarms, visiting hours, pain management, procedures, bathroom and other care routines, personal items, smoking policy, room service/diet, and visiting hours. Information on how to activate the Rapid Response Team has been discussed. Patient/Family are encouraged to report perceived risks to care and to ask questions if they do not understand what they are told or what they should do.
[2022-12-14] VITALS (16 sets, daily range): BP systolic 104–129; BP diastolic 53–58; PULSE 65–86; RESP 18–28; TEMP 36.3–37.7; O2SAT 90–98
--- NOTE | 2022-12-14 | ECHO_ITS ---
Patient Info Name: Miracle Mazariegos Age: 72 years : 1950 Gender: Female Ht: 62 in Wt: 160 lbs BSA: 1.81 m2 HR: 86 bpm BP: 129 / 56 mmHg Heart Rhythm: Sinus Rhythm Exam Date: 12/14/2022 9:22 AM Exam Location: [facility] Pulmonary Patient Status: Outpatient Admit Date: 12/13/2022 Staff Ordering Physician: Gay Baum NP Private Advisor: Go Boateng RDCS, RT Attending Provider: Shania Russo PA-C Referring Physician: Bautista RICCI; Exam Type: CA echo doppler color flow Study Info Indications R53.1 - Weakness Complete two-dimensional, color flow and Doppler transthoracic echocardiogram is performed. Strain analysis performed. Summary 1. Complete two-dimensional, color flow and Doppler transthoracic echocardiogram is performed. 2. Left ventricular chamber dimension is normal. 3. Left ventricular systolic function is normal, estimated at 60-65%. 4. There is mildly increased left ventricular wall thickness. 5. The left ventricular diastolic function is grade I diastolic dysfunction. 6. Right ventricular chamber dimension is enlarged. 7. Right ventricular systolic function is normal. 8. There is mild to moderate mitral valve regurgitation. Left Ventricle Left ventricular chamber dimension is normal. Left ventricular systolic function is normal, estimated at 60-65%. There is mildly increased left ventricular wall thickness. The left ventricular diastolic function is grade I diastolic dysfunction. Global longitudinal strain is abnormal at -17 %. Right Ventricle Right ventricular chamber dimension is enlarged. Right ventricular systolic function is normal. Left Atria Left atrial chamber dimension is normal. Right Atria Right atrial chamber dimension is normal. Atrial Septum Intact interatrial septum visualized by color flow imaging. Aortic Valve The aortic valve is not well visualized. There is no aortic valve stenosis. There is no aortic valve regurgitation. Pulmonic Valve The pulmonic valve is not well visualized. Mitral Valve There is mild to moderate mitral valve regurgitation. Tricuspid Valve There is trace tricuspid valve regurgitation. Pericardium/Pleural There is small pericardial effusion. Inferior Vena Cava Normal inferior vena cava with >50% collapse upon inspiration consistent with normal right atrial pressure, 3 mmHg. Aorta The aortic root size at the sinus of Valsalva is normal. Left Ventricular Outflow Tract Name Value Normal LVOT 2D LVOT Diameter 2.0 cm LVOT Doppler LVOT Peak Gradient 4 mmHg LVOT Mean Gradient 2 mmHg LVOT VTI 20 cm LVOT VTI/AV VTI Ratio 0.6 LVOT Stroke Volume 61 ml LVOT CO 5.0 l/min LVOT CI 2.8 l/min/m2 Mitral Valve Name Value Normal
[2022-12-14] MEDS: ALBUTEROL SULFATE NEB 2.5 MG/3 ML INH 5 MG INHALATION ×4 (02:36→20:47)
[2022-12-14] MEDS: IPRATROPIUM BR 0.02% INH SOLN 0.5 MG/2.5 ML VIAL INHALATION ×4 (02:36→20:47)
--- NOTE | 2022-12-14 02:40 | PCRCNOTE ---
PATIENT STATES THAT SHE DOES NOT WEAR A BIPAP/CPAP AT HOME AND THAT SHE DOES NOT WANT TO WEAR ONE HERE.
[2022-12-14 04:22] LABS: Appearance Urine Cloudy (Clear); Bilirubin Urine Negative (Negative); Blood Urine Negative (Negative); Color Urine Yellow (Yellow); Glucose Urine UA Negative (Negative); Ketones Urine Negative (Negative); Leukocyte Esterase Ur 1+ LEU/UL (NEGATIVE); Nitrate Urine Positive (Negative); Protein Urine 1+ mg/dL (Negative); Urobilinogen Urine 0.2 mg/dL (<2.0)
[2022-12-14 04:30] LABS: Bacteria Urine Trace /hpf; Budding Yeast Urine Present /hpf; Mucus Urine Rare /lpf; RBC Urine >75 /hpf (0-2); Squamous Epithelial Cell Urine Occasional /hpf (Few); WBC Urine >75 /hpf (0-3)
[2022-12-14 04:31] LABS: Add Urine Microscopic? YES
[2022-12-14 04:58] LABS: Basophils Absolute Auto 0.1 K/mm3 (0.0-0.1); Basophils Percent Auto 0.6 % (0.2-1.2); Eosinophils Absolute Auto 0.6 K/mm3 (0-0.3); Eosinophils Percent Auto 7.6 % (0-4.4); Hemoglobin 11.5 g/dL (12.0-15.0); Immature Granulocyte Absolute 0.02 K/mm3 (0.00-0.031); Immature Granulocyte Percent A 0.2 % (0-0.5); Lymphocytes Absolute Auto 2.03 K/mm3 (0.9-3.2); Lymphocytes Percent Auto 25.2 % (18.3-44.2); Mean Corpuscular HGB Conc 29.5 g/dl (32-36); Mean Corpuscular Hemoglobin 27.6 pg (26-34); Mean Corpuscular Volume 93.5 fl (80-100); Mean Platelet Volume 9.1 fl (7.4-10.4); Monocytes Absolute Auto 0.6 K/mm3 (0.1-0.6); Neutrophils Absolute Auto 4.8 K/mm3 (1.3-6.7); Neutrophils Percent Auto 59.4 % (45.5-73.1); Platelet Count Result 229 k/mm3 (150-375); Red Blood Count 4.17 M/mm3 (4.2-5.4); Red Cell Distribution Width 14.4 % (11.5-14.5); White Blood Count 8.1 K/mm3 (4.5-10.0)
[2022-12-14 05:14] LABS: Anion Gap 5 mmol/L (8-16); Blood Urea Nitrogen 10 mg/dL (7-17); Calcium 7.8 mg/dL (8.4-10.2); Carbon Dioxide 33 mmol/L (22-30); Chloride 104 mmol/L (98-107); Estimated CRCL calculation 68 ml/min; Estimated Glomerular Filt Rate > 60; Glucose 96 mg/dL (65-110); Magnesium 2.1 mg/dL (1.6-2.3); Potassium 3.6 mmol/L (3.4-5.0); Sodium 142 mmol/L (137-145)
[2022-12-14] MEDS: dilTIAZem HCL 60 MG TABLET 120 MG PO ×3 (08:15→16:16)
[2022-12-14] MEDS: OLANZapine 2.5 MG TABLET BY MOUTH ×2 (08:15→16:15)
[2022-12-14] MEDS: CARBIDOPA/LEVODOPA 25/100 MG TABLET 1 TABLET PO ×3 (08:16→16:16)
[2022-12-14] MEDS: SOTALOL HCL 80 MG TABLET PO ×2 (08:16→21:30)
--- NOTE | 2022-12-14 09:34 | WPDNEURCNPN ---
Assessment and Plan Assessment and plan (1) Generalized weakness: Code(s): R53.1 - Weakness Status: Acute (2) Parkinson disease: Code(s): G20 - Parkinson's disease Status: Chronic (3) Acute exacerbation of chronic obstructive airways disease: Code(s): J44.1 - Chronic obstructive pulmonary disease with (acute) exacerbation Status: Acute (4) CVA (cerebral vascular accident): Code(s): I63.9 - Cerebral infarction, unspecified Status: Acute Plan Miracle Mazariegos is a 72 year old female with a history of prior strokes, COPD, CAD, HTN, HLD, pacemaker, parkinson's disease who was brought in yesterday due to shortness of breath and progressive weakness. There are varying reports about degree and chronicity of patient's weakness. It seems that the generalized weakness is long standing and may be related to deconditioning from underlying medical issues. Her primary concern at this time is her respiratory symptoms. She is weak in the LUE, although this also seems to be chronic from her prior strokes. - If there are concerns for new focal neurological deficits, would recommend MRI brain -- although unclear if pacemaker is compatible - Parkinson's disease seems to be fairly well controlled so plan to continue Sinemet at same dose Consult date: 12/14/22 HPI: Miracle Mazariegos is a 72 year old female with a history of prior strokes, COPD, CAD, HTN, HLD, pacemaker, parkinson's disease who was brought in yesterday due to shortness of breath. Patient was taken to [facility] ED by her due to concerns of shortness of breath, cough, and dyspnea with exertion as well as subjective fevers and chills. At baseline she requires 3L O2. There have also been concerns that patient has been having generalized weakness that has been progressive, and she is currently wheelchair bound. She has a history of prior strokes - left basal ganglia, internal capsule as well as right basal ganglia. She is complaining that her left arm is weaker than usual. She is currently on Lipitor 80mg daily and Plavix 75mg daily. For Parkinson's disease she takes 1 tablet of Sinemet TID. CTA brain/carotid showed no stenosis, but did show old infarcts in the bilateral basal ganglia and internal capsules. No family at bedside at the time of my evaluation. Patient reports that the weakness in her left arm is chronic and seems to be unchanged since her stroke in 2019. She confirmed multiple times that this is a not a new symptoms. She also denies any generalized weakness or any new gait issues or falls. She reports that her had some concerns about this, but her primary concern was her respiratory symptoms. Patient was previously seen by Dr. Valle for Parkinson's disease. She denies any concerns for tremor and feels that the medication is working well. Per [facility] Neurology office, there have been attempts to set up home health care for patient in the past year, but reportedly patient and were not at home the multiple times home health had attempted to come by. Review of Systems Constitutional: Constitutional: Reports chills Eyes: Eyes: Reports no additional eye complaints ENT: Reports system reviewed and no additional complaints, except as documented Cardiovascular: Cardiovascular: Reports no additional cardiovascular complaints Respiratory: Respiratory: Reports cough, Reports dyspnea and Reports dyspnea on exertion Gastrointestinal: Gastrointestinal: Reports no additional gastrointestinal complaints Genitourinary: Genitourinary: Reports no additional female genitourinary complaints Musculoskeletal: Musculoskeletal: Reports arthralgias Integumentary/Breasts: Skin/Breast: Reports system reviewed and no additional complaints, except as docu Neurologic: Reports as per HPI Psychiatric: Psychiatric: Reports no additional psychiatric complaints PMFSH Past Medical History Medical History (Reviewed 12/14/22 @ 12:05 by Martha Drummond MD
[2022-12-14 14:26] LABS: Free T4 Free Thyroxine Reflex 0.87 ng/dL (0.78-2.19)
--- NOTE | 2022-12-14 15:10 | PM.IMPN ---
Progress Note: A&P Assessment and Plan (1) Pneumonia: Code(s): J18.9 - Pneumonia, unspecified organism Status: Acute Assessment and Plan: Presented with worsening shortness of breath and productive cough over the past 3 days. CXR was unremarkable, however CTA of the head and neck demonstrated bilateral tree-in-bud opacities in the apices of the lungs concerning for infection. Will begin ceftriaxone and doxycycline (noting QTc and current medications including sotalol) for treatment of community-acquired pneumonia. aspiration pneumonia considered given patient's history of dysphagia, however given location, aspiration felt to be less likely Supportive care to include bronchodilators, expectorants, incentive spirometry. COVID and influenza negative. Will evaluate urinary Legionella, pneumococcal, and mycoplasma antigens. Obtain sputum culture (2) Chronic obstructive pulmonary disease: Code(s): J44.9 - Chronic obstructive pulmonary disease, unspecified Status: Chronic Assessment and Plan: patient complained of mild wheezing, however not appreciated on my exam. Will continue with scheduled bronchodilators as noted above. No indication for systemic steroids at this time. (3) Generalized weakness: Code(s): R53.1 - Weakness Status: Acute Assessment and Plan: Seems the patient has generalized weakness. Initially complained of left arm weakness, however patient reports this is unchanged for several years since her stroke in 2019. head/neck CTA with no acute findings. Patient has been seen in consultation by Neurology and recommendations are appreciated. MRI was initially ordered, however this was canceled as patient has no new focal deficits and patient has a pacemaker which is not MRI compatible at this facility. Will begin PT/ OT and likely plan for rehab following discharge (4) Dysphagia: Code(s): R13.10 - Dysphagia, unspecified Status: Acute Assessment and Plan: Reviewed prior hospital notes, seems the patient has had issues with dysphagia in the past, however she denies this to me. She was evaluated by speech therapy during last admission in June 2022 at that time of 5 minutes and moist diet with nectar thickened liquids was recommended. unclear if patient has been following any dietary changes at home. Will proceed with bedside swallow study. Implement aspiration precautions. (5) Parkinson disease: Code(s): G20 - Parkinson's disease Status: Chronic Assessment and Plan: continue home Sinemet. appreciate neurology evaluation (6) Chronic respiratory failure: Code(s): J96.10 - Chronic respiratory failure, unspecified whether with hypoxia or hypercapnia Status: Acute Assessment and Plan: Patient states that she is chronically on 3 L supplemental oxygen. She is currently maintaining adequate O2 sats at her baseline 3 L Time Spent With Patient Time: 50 minutes for patient encounter Subjective Date/time seen: 12/14/22 15:10 Interval history: date of service: 12/14/2022 Miracle Mazariegos is a 72-year-old female with a history of CVA in 2019 with subsequent left upper extremity weakness, COPD, CAD, GERD, hypertension, hyperlipidemia, DARWIN on CPAP, and paroxysmal atrial fibrillation who is seen in follow-up for shortness of breath and wheezing for a couple of days. There was initially concerns for neurologic deficits and left arm weakness, however patient denies any changes. She states that her tricked her in to coming to the ER for evaluation of her shortness of breath. He told her that he had an appointment at the hospital and when they arrived they entered through the ER and he signed her in as a patient. When asked why she thought that her brought her for evaluation, she states that she has been increasingly short of breath and he has been wanting her to be evaluated. She endorses co
[2022-12-14 17:14] LABS: Total Triiodothyronine (T3) 1.27 NG/ML (0.97-1.69)
[2022-12-14] MEDS: ACETAMINOPHEN 325 MG TABLET 650 MG PO (21:27)
[2022-12-14] MEDS: ATORVASTATIN 40 MG TABLET 80 MG PO (21:30)
[2022-12-14] MEDS: MELATONIN 3 MG TABLET PO (21:30)
[2022-12-14] MEDS: CLOPIDOGREL BISULFATE 75 MG TABLET PO (21:32)
[2022-12-15] VITALS (18 sets, daily range): BP systolic 102–129; BP diastolic 48–67; PULSE 70–91; RESP 16–24; TEMP 36.4–37.3; O2SAT 93–100
[2022-12-15] MEDS: IPRATROPIUM BR 0.02% INH SOLN 0.5 MG/2.5 ML VIAL INHALATION ×4 (01:22→20:14)
[2022-12-15] MEDS: ALBUTEROL SULFATE NEB 2.5 MG/3 ML INH 5 MG INHALATION ×4 (01:22→20:14)
[2022-12-15 05:45] LABS: Hematocrit 36.4 % (37.0-47.0); Hemoglobin 10.8 g/dL (12.0-15.0); Mean Corpuscular HGB Conc 29.7 g/dl (32-36); Mean Corpuscular Hemoglobin 27.6 pg (26-34); Mean Corpuscular Volume 93.1 fl (80-100); Mean Platelet Volume 9.3 fl (7.4-10.4); Platelet Count Result 203 k/mm3 (150-375); Red Blood Count 3.91 M/mm3 (4.2-5.4); Red Cell Distribution Width 14.4 % (11.5-14.5); White Blood Count 9.7 K/mm3 (4.5-10.0)
[2022-12-15 05:56] LABS: Anion Gap 2 mmol/L (8-16); Blood Urea Nitrogen 12 mg/dL (7-17); Calcium 8.1 mg/dL (8.4-10.2); Carbon Dioxide 32 mmol/L (22-30); Chloride 105 mmol/L (98-107); Estimated CRCL calculation 68 ml/min; Estimated Glomerular Filt Rate > 60; Glucose 113 mg/dL (65-110); Sodium 139 mmol/L (137-145)
[2022-12-15] MEDS: SOTALOL HCL 80 MG TABLET PO ×2 (08:28→20:38)
[2022-12-15] MEDS: CARBIDOPA/LEVODOPA 25/100 MG TABLET 1 TABLET PO ×3 (08:29→16:56)
[2022-12-15] MEDS: dilTIAZem HCL 60 MG TABLET 120 MG PO ×3 (08:29→16:56)
[2022-12-15] MEDS: DOCUSATE SODIUM 100 MG CAPSULE PO ×2 (08:31→17:03)
[2022-12-15] MEDS: OLANZapine 2.5 MG TABLET BY MOUTH ×2 (08:32→16:57)
[2022-12-15] MEDS: DOXYCYCLINE HYCLATE 100 MG TABLET PO ×2 (09:41→20:39)
--- NOTE | 2022-12-15 10:22 | PCSTNOTE ---
Please refer to the Bedside Swallow Evaluation in the EMR. Please note, silent aspiration cannot be ruled out at bedside.
--- NOTE | 2022-12-15 15:13 | PM.IMPN ---
Progress Note: A&P Assessment and Plan (1) Pneumonia: Code(s): J18.9 - Pneumonia, unspecified organism Status: Acute Assessment and Plan: Presented with worsening shortness of breath and productive cough over the past 3 days. CXR was unremarkable, however CTA of the head and neck demonstrated bilateral tree-in-bud opacities in the apices of the lungs concerning for infection. Continue ceftriaxone and doxycycline (noting QTc and current medications including sotalol) for treatment of community-acquired pneumonia. Aspiration pneumonia considered given patient's history of dysphagia, however given location, aspiration felt to be less likely and pt did not demonstrate concerns for aspiration on bedside speech swallow today (reviewed speech therapy evaluation). Supportive care to include bronchodilators, expectorants, incentive spirometry. COVID and influenza negative. Urinary Legionella, pneumococcal, and mycoplasma antigens pending. Sputum culture ordered, awaiting collection (2) Chronic obstructive pulmonary disease: Code(s): J44.9 - Chronic obstructive pulmonary disease, unspecified Status: Chronic Assessment and Plan: patient complained of mild wheezing, however not appreciated on my exam. Continue with scheduled bronchodilators. No indication for systemic steroids at this time. (3) Generalized weakness: Code(s): R53.1 - Weakness Status: Acute Assessment and Plan: Seems the patient has generalized weakness. Initially complained of left arm weakness, however patient reports this is unchanged for several years since her stroke in 2019. head/neck CTA with no acute findings. Patient has been seen in consultation by Neurology and recommendations are appreciated. MRI was initially ordered, however this was canceled as patient has no new focal deficits and patient has a pacemaker which is not MRI compatible at this facility. Continue PT/ OT and plan for rehab following discharge (4) Dysphagia: Code(s): R13.10 - Dysphagia, unspecified Status: Acute Assessment and Plan: Reviewed prior hospital notes, appears patient has had issues with dysphagia in the past. Pt states she follows a soft easy to chew diet at home. Participated in bedside swallow study today with speech therapy. Reviewed evaluation. Patient can continue with regular diet, however recommended level 7 easy to chew modification which has been implemented. Continue regular liquids. Aspiration precautions in place (5) Parkinson disease: Code(s): G20 - Parkinson's disease Status: Chronic Assessment and Plan: continue home Sinemet. appreciate neurology evaluation (6) Chronic respiratory failure: Code(s): J96.10 - Chronic respiratory failure, unspecified whether with hypoxia or hypercapnia Status: Acute Assessment and Plan: Patient previously stated that she is on 3 L supplemental O2 chronically. Today she states this is only with sleep and activity. Patient is currently requiring 1 L supplemental O2. Continue with oxygen as needed and wean as tolerated. Patient will require home O2 eval prior to discharge Time Spent With Patient Time: 45 minutes spent on this encounter Subjective Date/time seen: 12/15/22 15:13 Interval history: date of service: 12/15/2022 Miracle Mazariegos is a 72-year-old female with a history of CVA in 2019 with subsequent left upper extremity weakness, COPD, CAD, GERD, hypertension, hyperlipidemia, DARWIN on CPAP, and paroxysmal atrial fibrillation who is seen in follow-up for pneumonia. She states that she is feeling well today. Her shortness of breath and cough has improved. She denies chest pain. She states that she is feeling stronger. She denies any focal weakness. She was able to feed herself breakfast today. States that she typically follows a soft diet. She denies any urinary symptoms. Denies diarrhea. State
--- NOTE | 2022-12-15 20:01 | PCRCNOTE ---
RT was called, tech stated that pt has schedule 8 pm breathing TX. RT informed tech that pt would be first own his list. RT was called for the second time within 30min, tech state pt was in distress. RT arrived at bedside, pt RR-16, SP02 97%, Pt was alert X4. Pt treatment given no SOB or increased WOB present at this time. RT will monitor during shift.
[2022-12-15] MEDS: FLUTICASONE/SALMETEROL 115-21 MCG INHALER 1 PUFF 2 PUFF INHALATION (20:14)
[2022-12-15] MEDS: MELATONIN 3 MG TABLET PO (20:36)
[2022-12-15] MEDS: ACETAMINOPHEN 325 MG TABLET 650 MG PO (20:36)
[2022-12-15] MEDS: CLOPIDOGREL BISULFATE 75 MG TABLET PO (20:39)
[2022-12-15] MEDS: ATORVASTATIN 40 MG TABLET 80 MG PO (20:39)
[2022-12-16] VITALS (19 sets, daily range): BP systolic 100–116; BP diastolic 47–94; PULSE 55–104; RESP 15–26; TEMP 36.5–39.5; O2SAT 87–99
[2022-12-16] MEDS: ALBUTEROL SULFATE NEB 2.5 MG/3 ML INH 5 MG INHALATION ×3 (02:20→14:52)
[2022-12-16] MEDS: IPRATROPIUM BR 0.02% INH SOLN 0.5 MG/2.5 ML VIAL INHALATION ×3 (02:20→14:52)
[2022-12-16 05:39] LABS: Hematocrit 37.9 % (37.0-47.0); Hemoglobin 11.3 g/dL (12.0-15.0); Mean Corpuscular HGB Conc 29.8 g/dl (32-36); Mean Corpuscular Hemoglobin 28.3 pg (26-34); Mean Corpuscular Volume 94.8 fl (80-100); Mean Platelet Volume 9.4 fl (7.4-10.4); Platelet Count Result 193 k/mm3 (150-375); Red Cell Distribution Width 14.2 % (11.5-14.5); White Blood Count 6.4 K/mm3 (4.5-10.0)
[2022-12-16 05:48] LABS: Potassium 4.4 mmol/L (3.4-5.0)
[2022-12-16 05:59] LABS: Anion Gap 2 mmol/L (8-16); Blood Urea Nitrogen 12 mg/dL (7-17); Calcium 8.4 mg/dL (8.4-10.2); Carbon Dioxide 34 mmol/L (22-30); Chloride 101 mmol/L (98-107); Estimated CRCL calculation 68 ml/min; Estimated Glomerular Filt Rate > 60; Glucose 101 mg/dL (65-110); Sodium 137 mmol/L (137-145)
[2022-12-16] MEDS: ACETAMINOPHEN 325 MG TABLET 650 MG PO ×2 (06:00→21:54)
[2022-12-16] MEDS: OLANZapine 2.5 MG TABLET BY MOUTH ×2 (08:22→16:49)
[2022-12-16] MEDS: DOXYCYCLINE HYCLATE 100 MG TABLET PO ×2 (08:22→21:55)
[2022-12-16] MEDS: CARBIDOPA/LEVODOPA 25/100 MG TABLET 1 TABLET PO ×3 (08:22→16:49)
[2022-12-16] MEDS: SOTALOL HCL 80 MG TABLET PO ×2 (08:26→21:54)
[2022-12-16] MEDS: dilTIAZem HCL 60 MG TABLET 120 MG PO (08:27)
[2022-12-16] MEDS: DOCUSATE SODIUM 100 MG CAPSULE PO ×2 (08:30→16:49)
[2022-12-16] MEDS: FLUTICASONE/SALMETEROL 115-21 MCG INHALER 1 PUFF 2 PUFF INHALATION ×2 (09:07→20:59)
[2022-12-16] MEDS: UMECLIDINIUM BROMIDE 62.5 MCG ELLIPTA 1 PUFF INHALATION (09:07)
--- NOTE | 2022-12-16 14:56 | PM.IMPN ---
Progress Note: A&P Assessment and Plan (1) Pneumonia: Code(s): J18.9 - Pneumonia, unspecified organism Status: Acute Assessment and Plan: Presented with worsening shortness of breath and productive cough over the past 3 days. CXR was unremarkable, however CTA of the head and neck demonstrated bilateral tree-in-bud opacities in the apices of the lungs concerning for infection. Continue ceftriaxone and doxycycline (noting QTc and current medications including sotalol) for treatment of community-acquired pneumonia. Aspiration pneumonia considered given patient's history of dysphagia, however given location, aspiration felt to be less likely and pt did not demonstrate concerns for aspiration on bedside speech swallow study (reviewed speech therapy evaluation). Supportive care to include bronchodilators, expectorants, incentive spirometry. COVID and influenza negative. Urinary Legionella, pneumococcal, and mycoplasma antigens pending. Sputum culture ordered, awaiting collection (2) Chronic obstructive pulmonary disease: Code(s): J44.9 - Chronic obstructive pulmonary disease, unspecified Status: Chronic Assessment and Plan: patient complained of mild wheezing, however not appreciated on my exam. Continue with scheduled bronchodilators. No indication for systemic steroids at this time. (3) Generalized weakness: Code(s): R53.1 - Weakness Status: Acute Assessment and Plan: Seems the patient has generalized weakness. Initially complained of left arm weakness, however patient reports this is unchanged for several years since her stroke in 2019. head/neck CTA with no acute findings. Patient has been seen in consultation by Neurology and recommendations are appreciated. MRI was initially ordered, however this was canceled as patient has no new focal deficits and patient has a pacemaker which is not MRI compatible at this facility. Continue PT/ OT and plan for rehab following discharge (4) Dysphagia: Code(s): R13.10 - Dysphagia, unspecified Status: Acute Assessment and Plan: History of dysphagia. Pt states she follows a soft easy to chew diet at home. Bedside swallow study on 12/15 reviewed, patient can continue with regular diet, however recommended level 7 easy to chew modification which has been implemented. Continue regular liquids. Aspiration precautions in place (5) Parkinson disease: Code(s): G20 - Parkinson's disease Status: Chronic Assessment and Plan: continue home Sinemet. appreciate neurology evaluation (6) Chronic respiratory failure: Code(s): J96.10 - Chronic respiratory failure, unspecified whether with hypoxia or hypercapnia Status: Acute Assessment and Plan: Patient initially stated that she is on 3 L supplemental O2 chronically then later stated this is only with sleep and activity. Patient is currently requiring 2 L supplemental O2. Continue with oxygen as needed and wean as tolerated. Patient will require home O2 eval prior to discharge Subjective Date/time seen: 12/16/22 14:56 Interval history: Date of service: 12/16/2022 Miracle Mazariegos is a 72-year-old female with a history of CVA in 2019 with subsequent left upper extremity weakness, COPD, CAD, GERD, hypertension, hyperlipidemia, DARWIN on CPAP, and paroxysmal atrial fibrillation who is seen in follow-up for pneumonia. she is slightly drowsy today. She is able to wake until me that she is feeling well, just tired. She denies any significant shortness of breath. Denies cough. She has no additional concerns. Review of Systems Review of Systems: All systems reviewed & are unremarkable except as noted in HPI and below Exam Narrative: General: well-nourished, chronically ill-appearing 72-year-old female, sitting up in bed, comfortable, NARD Neuro: drowsy, awakes and answers questions appropriately, alert and oriented x3, spee
--- NOTE | 2022-12-16 20:36 | ECG_ITS ---
Measurements Intervals [place] Rate: 96 P: 109 [place]: 154 QRS: 138 QRSD: 127 T: 37 QT: 340 QTc: 431 Interpretive Statements ELECTRONIC ATRIAL PACEMAKER RIGHT BUNDLE BRANCH BLOCK LEFT POSTERIOR FASCICULAR BLOCK BASELINE ARTIFACT- I, II, III, AVR, AVL, AVF, V1-V6 ABNORMAL ECG COMPARED TO ECG 12/13/2022 15:06:06 LEFT POSTERIOR FASCICULAR BLOCK NOW PRESENT Electronically Signed On 12-17-2022 14:04:13 [facility] TECHNICIAN by John Randolph D.O.
[2022-12-16] MEDS: methylPREDNISolone SOD SUCC 125 MG VIAL IV PUSH (21:27)
[2022-12-16] MEDS: CLOPIDOGREL BISULFATE 75 MG TABLET PO (21:54)
[2022-12-16] MEDS: ATORVASTATIN 40 MG TABLET 80 MG PO (21:55)
[2022-12-16 22:34] LABS: Influenza A QL RT-PCR Negative (Negative); Influenza B QL RT-PCR Negative (Negative); RSV RNA, RT-PCR Negative (Negative); SARS-CoV-2 RNA PCR Negative
--- NOTE | 2022-12-16 23:25 | PM.CCN ---
Critical Care Event Note Summary Code activated: No Narrative: Nursing staff called requesting evaluation of patient at on 12/16/2022 at 20:30. The patient had evidently had rapid increase in oxygen requirements. I went to bedside evaluating. The patient has diffuse wheezing. She has been admitted and treated for pneumonia and due to upper lobe opacities noted on CTA of the head and neck. Initial chest x-ray was reviewed and did not demonstrate infiltrates. Repeat chest x-ray was ordered stat and demonstrated expected infiltrates. The patient was on antibiotics with Rocephin and doxycycline. The patient was overtly hallucinating and yelling and cussing at her that she is was visualizing standing in the room. The patient was threatening harm to the hallucination. I requested a stat ABG chest x-ray and EKG. EKG demonstrated the patient's paced rhythm. The patient had had a drop in her heart rate on review of vitals but this coincided with her hypoxia. Bradycardia resolved after patient's hypoxia improved. Went respiratory arrived at the patient's bedside reason the patient was hypoxic with because her nasal cannula was only in 1 nostril. When her nasal cannula was adjusted the patient's hypoxia improved in her oxygen was weaned back down to 6 L which was still up from her prior requirement of 3 L. the patient had already received a nebulizer treatment. ABG was reviewed and was stable. While I was in the room the patient seemed to be more agitated. I asked nursing staff to repeat a temperature in the patient had spiked a temperature to greater than 103. I asked for repeat viral PCRs including COVID RSV and flu which were negative. Several hours late later when I went to do chart review [place] found a urine culture that was resulted as ESBL E coli that was resistant to Rocephin which the patient is on. However the patient's abnormal UA on the was not sent for culture as a reflex was not ordered. I asked nursing staff to check the patient for urinary retention. After the patient had had an incontinent urine the patient was still retaining greater than 500 mL. Garcia catheter has been ordered. Patient's antibiotics have been changed to Primaxin. Will continue doxycycline that had previously been ordered. Stat blood cultures were ordered during the course of rapid response. The patient has acute on chronic hypoxia very well could be due to part leave COPD exacerbation so 1 dose of steroids was given. Will continue patient on scheduled nebulizer treatments. Given the patient's increasing hypoxia she would likely benefit from some steroids as well. Will start 40 mg prednisone daily. Assessment plan: Sepsis with acute metabolic encephalopathy likely due to ESBL UTI with possible g IV bacteremia at this time. Urine cultures and blood cultures have now been ordered. Antibiotics have been changed to cefepime. Pneumonia: Patient is having increasing oxygen requirements but I suspect part of this is due to also COPD exacerbation as patient is having increased wheezing compared to prior exams according to respiratory staff and nursing staff. Patient's antibiotics have been changed to cefepime. Will continue doxycycline. COPD exacerbation: Patient received 1 dose of IV Solu-Medrol. Will continue scheduled nebulizer treatments. Will start p.o. prednisone 40 mg daily in a.m.. Acute on chronic hypoxic respiratory failure: Titrate oxygen as tolerated treat above causes. 95 minute spent in critical care activities. Due to a high probability of clinically significant, life threatening deterioration, the patient required my highest level of preparedness to intervene emergently and I personally spent this critical care time directly and personally managing the patient. This critical care time included obtaining a history; examining the patient; pulse oximetry; ordering and review of studies; arranging urgent treatment with development of a management plan; e
[2022-12-17] VITALS (18 sets, daily range): BP systolic 98–124; BP diastolic 42–78; PULSE 60–88; RESP 16–18; TEMP 36.3–36.7; O2SAT 92–97
[2022-12-17 00:39] LABS: Appearance Urine Clear (Clear); Bilirubin Urine Negative (Negative); Blood Urine Trace-lysed (Negative); Color Urine Yellow (Yellow); Glucose Urine UA Negative (Negative); Ketones Urine Negative (Negative); Leukocyte Esterase Ur 3+ LEU/UL (Negative); Nitrate Urine Negative (Negative); Protein Urine Negative (Negative); Specific Grav Ur 1.015 (1.001-1.035); Urobilinogen Urine 0.2 mg/dL (<2.0); pH Urine 6.5 (5.0-9.0)
[2022-12-17 00:43] LABS: Bacteria Urine Trace /hpf; Mucus Urine Rare /lpf; Squamous Epithelial Cell Urine Rare /hpf (Few); WBC Urine >75 /hpf
[2022-12-17 00:44] LABS: Add Urine Microscopic? YES
[2022-12-17 05:52] LABS: Hematocrit 37.3 % (37.0-47.0); Hemoglobin 11.3 g/dL (12.0-15.0); Mean Corpuscular HGB Conc 30.3 g/dl (32-36); Mean Corpuscular Hemoglobin 28.4 pg (26-34); Mean Corpuscular Volume 93.7 fl (80-100); Platelet Count Result 199 k/mm3 (150-375); Red Blood Count 3.98 M/mm3 (4.2-5.4); Red Cell Distribution Width 14.3 % (11.5-14.5); White Blood Count 18.8 K/mm3 (4.5-10.0)
[2022-12-17 06:02] LABS: Anion Gap 6 mmol/L (8-16); Blood Urea Nitrogen 18 mg/dL (7-17); Calcium 8.3 mg/dL (8.4-10.2); Carbon Dioxide 29 mmol/L (22-30); Chloride 102 mmol/L (98-107); Estimated CRCL calculation 80 ml/min; Estimated Glomerular Filt Rate > 60; Glucose 176 mg/dL (65-110); Potassium 3.9 mmol/L (3.4-5.0); Sodium 137 mmol/L (137-145)
[2022-12-17] MEDS: predniSONE 20 MG TABLET 40 MG PO (09:01)
[2022-12-17] MEDS: DOXYCYCLINE HYCLATE 100 MG TABLET PO ×2 (09:01→20:23)
[2022-12-17] MEDS: dilTIAZem HCL 60 MG TABLET 120 MG PO ×3 (09:01→16:22)
[2022-12-17] MEDS: OLANZapine 2.5 MG TABLET BY MOUTH ×2 (09:01→16:22)
[2022-12-17] MEDS: DOCUSATE SODIUM 100 MG CAPSULE PO ×2 (09:01→16:30)
[2022-12-17] MEDS: CARBIDOPA/LEVODOPA 25/100 MG TABLET 1 TABLET PO ×3 (09:01→16:22)
[2022-12-17] MEDS: SOTALOL HCL 80 MG TABLET PO ×2 (09:01→20:23)
[2022-12-17] MEDS: UMECLIDINIUM BROMIDE 62.5 MCG ELLIPTA 1 PUFF INHALATION (09:54)
[2022-12-17] MEDS: FLUTICASONE/SALMETEROL 115-21 MCG INHALER 1 PUFF 2 PUFF INHALATION ×2 (10:00→20:46)
[2022-12-17] MEDS: ALBUTEROL SULFATE NEB 2.5 MG/3 ML INH 5 MG INHALATION ×3 (10:03→20:39)
[2022-12-17] MEDS: IPRATROPIUM BR 0.02% INH SOLN 0.5 MG/2.5 ML VIAL INHALATION ×3 (10:04→20:40)
--- NOTE | 2022-12-17 16:14 | PM.IMPN ---
Progress Note: A&P Assessment and Plan (1) Sepsis: Qualifiers: Sepsis acute organ dysfunction status: unspecified Sepsis type: sepsis due to unspecified organism Qualified Code(s): A41.9 - Sepsis, unspecified organism Code(s): A41.9 - Sepsis, unspecified organism Status: Acute Assessment and Plan: Patient septic on presentation with increased leukocytosis and fever greater than 103. [place] to be secondary to UTI. blood cultures pending. Continue antibiotics as discussed below. (2) Urinary tract infection: Code(s): N39.0 - Urinary tract infection, site not specified Status: Acute Assessment and Plan: UA abnormal on admission, however did not reflex to culture. Repeat urine culture consistent with infection, cultures are pending. Patient with history of ESBL UTI 1 month ago. For this reason, she has been started on Primaxin. Await culture results and tailor antibiotics accordingly (3) Pneumonia: Code(s): J18.9 - Pneumonia, unspecified organism Status: Acute Assessment and Plan: Presented with worsening shortness of breath and productive cough over the past 3 days. CXR was unremarkable, however CTA of the head and neck demonstrated bilateral tree-in-bud opacities in the apices of the lungs concerning for infection. repeat CXR last night does reveal infiltrates. Continue doxycycline for treatment of community-acquired pneumonia. ceftriaxone transition to Primaxin (see below ). Aspiration pneumonia unlikely given location and patient is not demonstrating signs of aspiration on swallow study. Supportive care to include bronchodilators, expectorants, incentive spirometry. COVID and influenza negative. Urinary Legionella, pneumococcal, and mycoplasma antigens pending. Sputum culture ordered, awaiting collection (4) Urinary retention: Code(s): R33.9 - Retention of urine, unspecified Status: Acute Assessment and Plan: Patient noted be returning urine yesterday evening when rapid response was called. Continue with Garcia catheter at this time. Review of EMR indicates that this has been a problem for the patient in the past. Will begin tamsulosin. Consider voiding trial in the next several days if overall improvement. (5) COPD exacerbation: Code(s): J44.1 - Chronic obstructive pulmonary disease with (acute) exacerbation Status: Acute Assessment and Plan: Patient with worsened hypoxia yesterday, noted to have wheezing on exam. Received 1 dose of IV Solu-Medrol. Continue prednisone 40 mg daily. Continue scheduled bronchodilators (6) Generalized weakness: Code(s): R53.1 - Weakness Status: Acute Assessment and Plan: Seems the patient has generalized weakness. Initially complained of left arm weakness, however patient reports this is unchanged for several years since her stroke in 2019. head/neck CTA with no acute findings. Patient has been seen in consultation by Neurology and recommendations are appreciated. MRI was initially ordered, however this was canceled as patient has no new focal deficits and patient has a pacemaker which is not MRI compatible at this facility. Continue PT/ OT and plan for rehab following discharge (7) Dysphagia: Code(s): R13.10 - Dysphagia, unspecified Status: Acute Assessment and Plan: History of dysphagia. Pt states she follows a soft easy to chew diet at home. Bedside swallow study on 12/15 reviewed, patient can continue with regular diet, however recommended level 7 easy to chew modification which has been implemented. Continue regular liquids. Aspiration precautions in place (8) Parkinson disease: Code(s): G20 - Parkinson's disease Status: Chronic Assessment and Plan: continue home Sinemet. appreciate neurology evaluation (9) Chronic respiratory failure: Code(s): J96.10 - Chronic respiratory failure,
--- NOTE | 2022-12-17 17:08 | PCOTNOTE ---
The patient treatment was not able to be completed on [12/17/2022]. Will plan to continue treatment per plan of care.
[2022-12-17] MEDS: CLOPIDOGREL BISULFATE 75 MG TABLET PO (20:23)
[2022-12-17] MEDS: ATORVASTATIN 40 MG TABLET 80 MG PO (20:24)
[2022-12-18] VITALS (18 sets, daily range): BP systolic 105–131; BP diastolic 48–65; PULSE 79–96; RESP 14–22; TEMP 36.5–37.1; O2SAT 90–99
[2022-12-18] MEDS: ALBUTEROL SULFATE NEB 2.5 MG/3 ML INH 5 MG INHALATION ×4 (02:23→20:47)
[2022-12-18] MEDS: IPRATROPIUM BR 0.02% INH SOLN 0.5 MG/2.5 ML VIAL INHALATION ×4 (02:23→20:47)
[2022-12-18 05:32] LABS: Alanine Aminotransferase 11 U/L (6-35); Albumin Level 3.9 g/dL (3.5-5.1); Alkaline Phosphatase 73 U/L (38-126); Anion Gap 4 mmol/L (8-16); Aspartate Amino Transferase 17 U/L (14-36); Bilirubin,Total 0.3 mg/dL (0.2-1.3); Blood Urea Nitrogen 19 mg/dL (7-17); Calcium 8.9 mg/dL (8.4-10.2); Carbon Dioxide 32 mmol/L (22-30); Chloride 104 mmol/L (98-107); Estimated CRCL calculation 59 ml/min; Estimated Glomerular Filt Rate > 60; Glucose 167 mg/dL (65-110); Potassium 3.7 mmol/L (3.4-5.0); Sodium 140 mmol/L (137-145)
[2022-12-18 07:09] LABS: Base Excess ABG 4.9 mEq/l (+/-2.0); HCO3 ABG 29.1 mEq/l (22.0-26.0); Oxygen Saturation ABG 94.4 % (95.0-100.0); PCO2 ABG 41.4 mmHg (35.0-45.0); PO2 ABG 67.3 mmHg (80.0-100.0); Total Hemoglobin 12.2 g/dL (12.0-18.0); pH ABG 7.465 (7.350-7.450)
[2022-12-18 07:10] LABS: Fractional Inspired Oxygen 90 %; PO2 FiO2 Ratio Arterial Blood 0.75 %
[2022-12-18] MEDS: CARBIDOPA/LEVODOPA 25/100 MG TABLET 1 TABLET PO ×3 (10:52→17:31)
[2022-12-18] MEDS: SOTALOL HCL 80 MG TABLET PO ×2 (10:52→20:07)
[2022-12-18] MEDS: predniSONE 20 MG TABLET 40 MG PO (10:52)
[2022-12-18] MEDS: OLANZapine 2.5 MG TABLET BY MOUTH ×2 (10:53→17:30)
[2022-12-18] MEDS: dilTIAZem HCL 60 MG TABLET 120 MG PO ×3 (10:53→17:29)
[2022-12-18] MEDS: DOXYCYCLINE HYCLATE 100 MG TABLET PO ×2 (10:53→20:07)
[2022-12-18] MEDS: TAMSULOSIN HCL 0.4 MG CAPSULE PO (10:54)
[2022-12-18] MEDS: DOCUSATE SODIUM 100 MG CAPSULE PO ×2 (10:57→17:34)
[2022-12-18 11:27] LABS: Basophils Percent Auto 0.2 % (0.2-1.2); Eosinophils Percent Auto 0.1 % (0-4.4); Hematocrit 35.5 % (37.0-47.0); Hemoglobin 10.6 g/dL (12.0-15.0); Immature Granulocyte Percent A 0.5 % (0-0.5); Lymphocytes Absolute Auto 2.27 K/mm3 (0.9-3.2); Lymphocytes Percent Auto 12.3 % (18.3-44.2); Mean Corpuscular HGB Conc 29.9 g/dl (32-36); Mean Corpuscular Hemoglobin 28.4 pg (26-34); Mean Corpuscular Volume 95.2 fl (80-100); Mean Platelet Volume 10.1 fl (7.4-10.4); Monocytes Absolute Auto 1.2 K/mm3 (0.1-0.6); Monocytes Percent Auto 6.3 % (2.6-8.5); Neutrophils Absolute Auto 14.9 K/mm3 (1.3-6.7); Neutrophils Percent Auto 80.6 % (45.5-73.1); Platelet Count Result 219 k/mm3 (150-375); Red Blood Count 3.73 M/mm3 (4.2-5.4); Red Cell Distribution Width 14.6 % (11.5-14.5); White Blood Count 18.5 K/mm3 (4.5-10.0)
[2022-12-18 11:54] LABS: Ovalocytes 1+ (NORMAL); Platelet Estimate Adequate (Adequate); Schistocytes None Seen (NORMAL)
[2022-12-18] MEDS: FLUTICASONE/SALMETEROL 115-21 MCG INHALER 1 PUFF 2 PUFF INHALATION ×2 (13:49→20:47)
[2022-12-18] MEDS: UMECLIDINIUM BROMIDE 62.5 MCG ELLIPTA 1 PUFF INHALATION (13:49)
--- NOTE | 2022-12-18 16:58 | PM.IMPN ---
Progress Note: A&P Assessment and Plan (1) Sepsis: Qualifiers: Sepsis acute organ dysfunction status: unspecified Sepsis type: sepsis due to unspecified organism Qualified Code(s): A41.9 - Sepsis, unspecified organism Code(s): A41.9 - Sepsis, unspecified organism Status: Acute Assessment and Plan: On 12/16 overniht patient developed high fever at 1:03 a.m. increased leukocytosis, tachypnea and tachycardia. [place] to be secondary to UTI. blood cultures pending, negative to date. Continue antibiotics as discussed below. (2) Urinary tract infection: Code(s): N39.0 - Urinary tract infection, site not specified Status: Acute Assessment and Plan: UA abnormal on admission, however did not reflex to culture. Repeat urine culture collected on 12/16 consistent with infection given patient's history of ESBL UTI 1 month ago, she was started on Primaxin. Urine culture today shows no growth, however this is likely due to the fact that patient was receiving IV ceftriaxone. Will continue with Primaxin at this time as patient appears to be improving with resolution of fever. Continue to monitor closely. (3) Pneumonia: Code(s): J18.9 - Pneumonia, unspecified organism Status: Acute Assessment and Plan: Presented with worsening shortness of breath and productive cough over the past 3 days. CXR was unremarkable, however CTA of the head and neck demonstrated bilateral tree-in-bud opacities in the apices of the lungs concerning for infection. repeat CXR last night does reveal infiltrates. Continue doxycycline for treatment of community-acquired pneumonia. ceftriaxone transition to Primaxin (see below ). Aspiration pneumonia unlikely given location and patient is not demonstrating signs of aspiration on swallow study. Supportive care to include bronchodilators, expectorants, incentive spirometry. COVID and influenza negative. Urinary Legionella and pneumococcal antigens pending. Mycoplasma IgG mildly elevated at 3.64, which likely indicates prior infection, however patient is on appropriate treatment with doxycycline. Sputum culture ordered, awaiting collection (4) Urinary retention: Code(s): R33.9 - Retention of urine, unspecified Status: Acute Assessment and Plan: Patient noted be retaining urine on 12/16 when rapid response was called. Garcia catheter was initiated. Review of EMR indicates that this has been a problem for the patient in the past. Patient has been started on tamsulosin. Discussed the case with urology. Patient will continue with Garcia catheter until outpatient urology evaluation for urodynamics. (5) COPD exacerbation: Code(s): J44.1 - Chronic obstructive pulmonary disease with (acute) exacerbation Status: Acute Assessment and Plan: Patient with worsened hypoxia on 12/16, noted to have wheezing on exam. Received 1 dose of IV Solu-Medrol. No wheezing appreciated on exam today. Continue prednisone 40 mg daily. Continue scheduled bronchodilators (6) Generalized weakness: Code(s): R53.1 - Weakness Status: Acute Assessment and Plan: Seems the patient has generalized weakness. Initially complained of left arm weakness, however patient reports this is unchanged for several years since her stroke in 2019. head/neck CTA with no acute findings. Patient has been seen in consultation by Neurology and recommendations are appreciated. MRI was initially ordered, however this was canceled as patient has no new focal deficits and patient has a pacemaker which is not MRI compatible at this facility. Continue PT/ OT and plan for rehab following discharge (7) Dysphagia: Code(s): R13.10 - Dysphagia, unspecified Status: Acute Assessment and Plan: History of dysphagia. Pt states she follows a soft easy to chew diet at home. Bedside swallow study on 12/15 reviewed, patient can continue with regula
[2022-12-18] MEDS: ACETAMINOPHEN 325 MG TABLET 650 MG PO (19:20)
[2022-12-18 19:58] LABS: Legionella pneumophila Ag Ur Not Detected (Not Detected)
[2022-12-18] MEDS: CLOPIDOGREL BISULFATE 75 MG TABLET PO (20:07)
[2022-12-18] MEDS: ATORVASTATIN 40 MG TABLET 80 MG PO (20:07)
[2022-12-19] VITALS (16 sets, daily range): BP systolic 111–126; BP diastolic 51–62; PULSE 76–94; RESP 18–20; TEMP 36.1–36.7; O2SAT 92–98
[2022-12-19] MEDS: ALBUTEROL SULFATE NEB 2.5 MG/3 ML INH 5 MG INHALATION ×4 (02:52→20:44)
[2022-12-19] MEDS: IPRATROPIUM BR 0.02% INH SOLN 0.5 MG/2.5 ML VIAL INHALATION ×4 (02:52→20:44)
[2022-12-19 05:38] LABS: Basophils Percent Auto 0.1 % (0.2-1.2); Eosinophils Percent Auto 0.1 % (0-4.4); Hematocrit 35.1 % (37.0-47.0); Hemoglobin 10.5 g/dL (12.0-15.0); Immature Granulocyte Absolute 0.09 K/mm3 (0.00-0.031); Immature Granulocyte Percent A 0.7 % (0-0.5); Lymphocytes Absolute Auto 1.95 K/mm3 (0.9-3.2); Lymphocytes Percent Auto 14.4 % (18.3-44.2); Mean Corpuscular HGB Conc 29.9 g/dl (32-36); Mean Corpuscular Hemoglobin 27.8 pg (26-34); Mean Corpuscular Volume 92.9 fl (80-100); Monocytes Absolute Auto 0.7 K/mm3 (0.1-0.6); Neutrophils Absolute Auto 10.8 K/mm3 (1.3-6.7); Neutrophils Percent Auto 79.7 % (45.5-73.1); Platelet Count Result 218 k/mm3 (150-375); Red Blood Count 3.78 M/mm3 (4.2-5.4); Red Cell Distribution Width 14.5 % (11.5-14.5); White Blood Count 13.5 K/mm3 (4.5-10.0)
[2022-12-19 05:49] LABS: Anion Gap 3 mmol/L (8-16); Blood Urea Nitrogen 15 mg/dL (7-17); Calcium 8.3 mg/dL (8.4-10.2); Carbon Dioxide 33 mmol/L (22-30); Chloride 107 mmol/L (98-107); Estimated CRCL calculation 98 ml/min; Estimated Glomerular Filt Rate > 60; Glucose 155 mg/dL (65-110); Sodium 143 mmol/L (137-145)
[2022-12-19 05:51] LABS: Anisocytosis 2+ (NORMAL); Hypochromasia 2+ (NORMAL); Ovalocytes 1+ (NORMAL); Platelet Estimate Adequate (Adequate); Poikilocytosis 2+ (NORMAL); Schistocytes None Seen (NORMAL)
[2022-12-19 05:52] LABS: Tear Drop Cells 1+ (NORMAL)
[2022-12-19] MEDS: FLUTICASONE/SALMETEROL 115-21 MCG INHALER 1 PUFF 2 PUFF INHALATION ×2 (08:57→20:44)
[2022-12-19] MEDS: dilTIAZem HCL 60 MG TABLET 120 MG PO ×3 (09:53→16:25)
[2022-12-19] MEDS: DOXYCYCLINE HYCLATE 100 MG TABLET PO ×2 (09:53→20:17)
[2022-12-19] MEDS: predniSONE 20 MG TABLET 40 MG PO (09:54)
[2022-12-19] MEDS: OLANZapine 2.5 MG TABLET BY MOUTH ×2 (09:54→16:26)
[2022-12-19] MEDS: CARBIDOPA/LEVODOPA 25/100 MG TABLET 1 TABLET PO ×3 (09:54→16:25)
[2022-12-19] MEDS: TAMSULOSIN HCL 0.4 MG CAPSULE PO (09:54)
[2022-12-19] MEDS: SOTALOL HCL 80 MG TABLET PO ×2 (09:54→20:15)
[2022-12-19] MEDS: DOCUSATE SODIUM 100 MG CAPSULE PO ×2 (10:00→17:27)
[2022-12-19] MEDS: UMECLIDINIUM BROMIDE 62.5 MCG ELLIPTA 1 PUFF INHALATION (10:33)
--- NOTE | 2022-12-19 12:31 | WPDNEUROPN ---
Subjective Date/time seen: 12/19/22 12:31 Interval history: 72 years old lady admitted to the hospital through the emergency room with ongoing history of COPD, hypertension, hyperlipidemia, anxiety with depression, and left-sided cerebrovascular accident, seen by Dr. Drummond with documentation of ongoing history of Parkinson's disease, patient is receiving carbidopa levodopa 25/100 1 tab 3 times a day in addition to atorvastatin 80 mg at night clopidogrel 75 mg at night, pertinent investigations include CTA which documented old infarcts involving bilateral basal ganglia and internal capsules in addition to no aneurysm and no intracranial stenosis, patient is being treated for sepsis with UTI, pneumonia and generalized weakness I will increase the Sinemet to 25/250 3 times a day while she is in the hospital to document the improvement or worsening on this particular dosage Objective Data Vital Signs Vital Signs: Vital Signs - 24 hr 12/18/22 13:48 12/18/22 13:57 12/18/22 14:00 Temperature 37.1 C Pulse Rate 82 85 79 Respiratory Rate 18 18 18 Blood Pressure 105/58 L Pulse Oximetry 90 Oxygen Delivery Oxygen Flow Rate 12/18/22 19:40 12/18/22 19:44 12/18/22 20:07 Temperature 36.5 C 36.5 C Pulse Rate 81 81 81 Respiratory Rate 22 H 22 H Blood Pressure 131/48 L 131/48 L Pulse Oximetry 91 91 Oxygen Delivery Oxygen Flow Rate 12/18/22 20:48 12/18/22 20:48 12/18/22 20:00 Temperature Pulse Rate 89 89 Respiratory Rate 20 20 Blood Pressure Pulse Oximetry 92 92 Oxygen Delivery Nasal Cannula Nasal Cannula Oxygen Flow Rate 3 4 12/19/22 01:03 12/19/22 02:49 12/19/22 03:05 Temperature 36.3 C L Pulse Rate 89 79 79 Respiratory Rate 18 18 20 Blood Pressure 126/51 L Pulse Oximetry 94 Oxygen Delivery Oxygen Flow Rate 12/19/22 05:28 12/19/22 05:30 12/19/22 08:48 Temperature 36.1 C L 36.1 C L Pulse Rate 80 80 Respiratory Rate 18 18 Blood Pressure 113/52 L 113/52 L Pulse Oximetry 95 95 92 Oxygen Delivery Nasal Cannula Oxygen Flow Rate 3 12/19/22 08:48 12/19/22 08:58 12/19/22 11:45 Temperature 36.7 C Pulse Rate 94 78 83 Respiratory Rate 20 20 19 Blood Pressure 111/61 Pulse Oximetry 98 Oxygen Delivery Oxygen Flow Rate Intake/Output Intake/Output: Intake & Output 12/16/22 12/17/22 12/18/22 12/19/22 23:59 23:59 23:59 23:59 Intake Total 1350 1700 1612 460 Output Total 1800 1450 2000 600 Balance -450 250 -388 -140 Meds/Results Medications: Active Medications Generic Name Dose Route Start Last Admin Trade Name Freq PRN Reason Stop Dose Admin Acetaminophen 650 mg 12/13/22 18:30 12/18/22 19:20 Acetaminophen 325 Mg Tablet PO 650 mg Q4H PRN Administration Mild Pain (1-3) or Fever Albuterol 5 mg 12/13/22 20:00 12/19/22 08:46 Albuterol Sulfate Neb 2.5 Mg/3 Ml Inh INHALATION 5 mg Q6HRT MELISSA Administration Atorvastatin Calcium 80 mg 12/14/22 21:00 12/18/22 20:07 Atorvastatin 40 Mg Tablet PO 80 mg HS MELISSA Administration Carbidopa/Levodopa 1 tablet 12/14/22 08:00 12/19/22 09:54 Carbidopa/Levodopa 25/100 Mg Tablet PO 1 tablet TIDWM MELISSA Administration Clopidogrel Bisulfate 75 mg 12/14/22 21:00 12/18/22 20:07 Clopidogrel Bisulfate 75 Mg Tablet PO 75 mg HS MELISSA Administration Diltiazem HCl 120 mg 12/14/22 09:00 12/19/22 09:53 Diltiazem Hcl 60 Mg Tablet PO 120 mg TID MELISSA Administration Docusate Sodium 100 mg 12/14/22 17:00 12/19/22 10:00 Docusate Sodium 100 Mg Capsule PO 100 mg BID MELISSA Administration Doxycycline Hyclate 100 mg 12/15/22 09:00 12/19/22 09:53 Doxycycline Hyclate 100 Mg Tablet PO 100 mg Q12HR MELISSA Administration Imipenem/Cilastatin Sodium 500 mg in 100 mls @ 300 mls/hr 12/17/22 00:00 12/19/22 05:23 Primaxin 500 Mg/Ns 100 Ml IVPB Infused Q6H MELISSA Infusion Ipratropium [place] 0.5 mg 12/13/22 20:00 12/19/22 08:46 Ipratropium Br
--- NOTE | 2022-12-19 16:27 | PM.IMPN ---
Progress Note: A&P Assessment and Plan (1) Sepsis: Qualifiers: Sepsis acute organ dysfunction status: unspecified Sepsis type: sepsis due to unspecified organism Qualified Code(s): A41.9 - Sepsis, unspecified organism Code(s): A41.9 - Sepsis, unspecified organism Status: Acute Assessment and Plan: On 12/16 overnight patient developed high fever at 103.0 with increased leukocytosis, tachypnea and tachycardia. [place] to be secondary to UTI. blood cultures pending, negative to date. Continue antibiotics as discussed below. (2) Urinary tract infection: Code(s): N39.0 - Urinary tract infection, site not specified Status: Acute Assessment and Plan: UA abnormal on admission, however did not reflex to culture. Repeat urine culture collected on 12/16 consistent with infection. Given patient's history of ESBL UTI 1 month ago, she was started on Primaxin. Urine culture shows no growth, however this is likely due to the fact that patient was receiving IV ceftriaxone. Will continue with Primaxin at this time as patient appears to be improving with resolution of fever. Continue to monitor closely. (3) Pneumonia: Code(s): J18.9 - Pneumonia, unspecified organism Status: Acute Assessment and Plan: Presented with worsening shortness of breath and productive cough over the past 3 days. CXR was unremarkable, however CTA of the head and neck demonstrated bilateral tree-in-bud opacities in the apices of the lungs concerning for infection. repeat CXR last night does reveal infiltrates. Continue doxycycline and Primaxin. Aspiration pneumonia unlikely given location and patient is not demonstrating signs of aspiration on swallow study. Supportive care to include bronchodilators, expectorants, incentive spirometry. COVID and influenza negative. Urinary Legionella and pneumococcal antigens pending. Mycoplasma IgG mildly elevated at 3.64, which likely indicates prior infection, however patient is on appropriate treatment with doxycycline. Sputum culture ordered, awaiting collection (4) Urinary retention: Code(s): R33.9 - Retention of urine, unspecified Status: Acute Assessment and Plan: Patient noted be retaining urine on 12/16 when rapid response was called. Garcia catheter was initiated. Review of EMR indicates that this has been a problem for the patient in the past. Patient has been started on tamsulosin. Discussed the case with urology. Patient will continue with Garcia catheter until outpatient urology evaluation for urodynamics. (5) COPD exacerbation: Code(s): J44.1 - Chronic obstructive pulmonary disease with (acute) exacerbation Status: Acute Assessment and Plan: Patient with worsened hypoxia on 12/16, noted to have wheezing on exam. Received 1 dose of IV Solu-Medrol. No wheezing appreciated on exam today. Continue prednisone 40 mg daily for 5 days total. Continue scheduled bronchodilators (6) Generalized weakness: Code(s): R53.1 - Weakness Status: Acute Assessment and Plan: Seems the patient has generalized weakness. Initially complained of left arm weakness, however patient reports this is unchanged for several years since her stroke in 2019. head/neck CTA with no acute findings. [place] was seen in consultation by Neurology and recommendations are appreciated. MRI was initially ordered, however this was canceled as patient has no new focal deficits and patient has a pacemaker which is not MRI compatible at this facility. Continue PT/ OT and plan. Plan for SNF placement, awaiting availability and insurance authorization (7) Dysphagia: Code(s): R13.10 - Dysphagia, unspecified Status: Acute Assessment and Plan: History of dysphagia. Pt states she follows a soft easy to chew diet at home. Bedside swallow study on 12/15 reviewed, patient can continue with regular diet, however recommended
[2022-12-19 17:18] LABS: Pneumococcal Antigen Urine Not Detected (Not Detected)
[2022-12-19] MEDS: ACETAMINOPHEN 325 MG TABLET 650 MG PO (20:11)
[2022-12-19] MEDS: MELATONIN 3 MG TABLET PO (20:13)
[2022-12-19] MEDS: ATORVASTATIN 40 MG TABLET 80 MG PO (20:16)
[2022-12-19] MEDS: CLOPIDOGREL BISULFATE 75 MG TABLET PO (20:17)
[2022-12-19] MEDS: FLUTICASONE PROPIONATE 0.05% NA SPR 16 GM BTL (*BKC) 1 SPRAY NASAL (21:10)
[2022-12-20] VITALS (13 sets, daily range): BP systolic 110–129; BP diastolic 52–58; PULSE 77–98; RESP 18–24; TEMP 36–36.6; O2SAT 93–97
[2022-12-20] MEDS: IPRATROPIUM BR 0.02% INH SOLN 0.5 MG/2.5 ML VIAL INHALATION ×3 (02:37→14:34)
[2022-12-20] MEDS: ALBUTEROL SULFATE NEB 2.5 MG/3 ML INH 5 MG INHALATION ×3 (02:37→14:34)
[2022-12-20] MEDS: ACETAMINOPHEN 325 MG TABLET 650 MG PO (05:15)
[2022-12-20 05:41] LABS: Hematocrit 34.3 % (37.0-47.0); Hemoglobin 10.6 g/dL (12.0-15.0); Mean Corpuscular HGB Conc 30.9 g/dl (32-36); Mean Corpuscular Hemoglobin 28.2 pg (26-34); Mean Corpuscular Volume 91.2 fl (80-100); Mean Platelet Volume 9.7 fl (7.4-10.4); Platelet Count Result 217 k/mm3 (150-375); Red Blood Count 3.76 M/mm3 (4.2-5.4); Red Cell Distribution Width 14.3 % (11.5-14.5)
[2022-12-20 05:54] LABS: Anion Gap 0 mmol/L (8-16); Blood Urea Nitrogen 13 mg/dL (7-17); Calcium 8.3 mg/dL (8.4-10.2); Carbon Dioxide 38 mmol/L (22-30); Chloride 99 mmol/L (98-107); Estimated CRCL calculation 80 ml/min; Estimated Glomerular Filt Rate > 60; Glucose 147 mg/dL (65-110); Potassium 4.2 mmol/L (3.4-5.0); Sodium 137 mmol/L (137-145)
[2022-12-20] MEDS: FLUTICASONE/SALMETEROL 115-21 MCG INHALER 1 PUFF 2 PUFF INHALATION (08:15)
[2022-12-20] MEDS: UMECLIDINIUM BROMIDE 62.5 MCG ELLIPTA 1 PUFF INHALATION (08:15)
--- NOTE | 2022-12-20 09:00 | P.PNIM_ITS ---
Progress Note: A&P Assessment and Plan (1) Sepsis: Qualifiers: Sepsis acute organ dysfunction status: unspecified Sepsis type: sepsis due to unspecified organism Qualified Code(s): A41.9 - Sepsis, unspecified o rganism Code(s): A41.9 - Sepsis, unspecified organism Status: Acute Assessment and Plan: * On 12/16 overnight patient developed high fever at 103.0 with increased leukocytosis, tachypnea and tachycardia. * blood cultures NGTD * Source of infection, Pneumonia and/or UTI * Change antibiotics to azithromycin and cefdinir * WBC stable at 12.0 * Urine culture showed no growth * Stable and seems to be resolved (2) Urinary tract infection: Code(s): N39.0 - Urinary tract infection, site not specified Status: Acute Assessment and Plan: * UA abnormal on admission, however did not reflex to culture. * Repeat urine culture collected on 12/16 consistent with infection. * Given patient's history of ESBL UTI 1 month ago, * DCd Primaxin. * Urine culture shows no growth, however received IV ceftriaxone prior to urine culture * Changed to cefdinir (3) Pneumonia: Code(s): J18.9 - Pneumonia, unspecified organism Status: Acute Assessment and Plan: * Presented with worsening shortness of breath and productive cough over the past 3 days. * CXR was unremarkable * CTA of the head and neck demonstrated bilateral tree-in-bud opacities in the apices of the lungs concerning for infection. * repeat CXR reveals infiltrates (12/16/22) * Change to cefdinir and azithromycin, only needs 2 more days * Aspiration pneumonia unlikely given location and patient is not demonstrating signs of aspiration on swallow study. * Supportive care to include bronchodilators, expectorants, incentive spirometry. * COVID and influenza negative. * Urinary Legionella and pneumococcal antigens not detected * Mycoplasma IgG mildly elevated at 3.64, which likely indicates prior infection * Sputum culture ordered, awaiting collection (4) Urinary retention: Code(s): R33.9 - Retention of urine, unspecified Status: Acute Assessment and Plan: * Patient noted be retaining urine on 12/16 when rapid response was called. * Garcia catheter was initiated. * History of urinary retention * Continue tamsulosin * Urology for outpatient follow up post discharge. * Continue with urinary catheter (5) COPD exacerbation: Code(s): J44.1 - Chronic obstructive pulmonary disease with (acute) exacerbation Status: Acute Assessment and Plan: * Present with worsening hypoxia, wheezes, increased cough with sputum production and changes * Continue prednisone 40mg PO daily total 5 days, currently on day 5 * Expiratory wheezes noted on exam * Neb treatments ordered * Continue to trend respiratory status (6) Generalized weakness: Code(s): R53.1 - Weakness Status: Acute Assessment and Plan: * Seems the patient has generalized weakness. * Initially complained of left arm weakness, however patient reports this is unchanged for several years since her stroke in 2019. * head/neck CTA with no acute findings. * Neurology consulted * MRI was initially ordered, pacemaker present * Continue PT/ OT and plan. * Plan for SNF placement, awaiting availability and insurance authorization
[2022-12-20] MEDS: OLANZapine 2.5 MG TABLET BY MOUTH (09:43)
[2022-12-20] MEDS: DOCUSATE SODIUM 100 MG CAPSULE PO (09:43)
[2022-12-20] MEDS: CARBIDOPA/LEVODOPA 25/100 MG TABLET 1 TABLET PO (09:43)
[2022-12-20] MEDS: FLUTICASONE PROPIONATE 0.05% NA SPR 16 GM BTL (*BKC) 1 SPRAY NASAL (09:43)
[2022-12-20] MEDS: dilTIAZem HCL 60 MG TABLET 120 MG PO ×2 (09:44→12:32)
[2022-12-20] MEDS: predniSONE 20 MG TABLET 40 MG PO (09:44)
[2022-12-20] MEDS: DOXYCYCLINE HYCLATE 100 MG TABLET PO (09:44)
[2022-12-20] MEDS: SOTALOL HCL 80 MG TABLET PO (09:44)
[2022-12-20] MEDS: TAMSULOSIN HCL 0.4 MG CAPSULE PO (09:46)
--- NOTE | 2022-12-20 11:12 | ECG_ITS ---
Measurements Intervals [place] Rate: 89 P: 116 NV: 166 QRS: 128 QRSD: 141 T: 51 QT: 391 QTc: 478 Interpretive Statements ELECTRONIC ATRIAL PACEMAKER RIGHT BUNDLE BRANCH BLOCK LEFT POSTERIOR FASCICULAR BLOCK ABNORMAL ECG COMPARED TO ECG 12/16/2022 21:35:21 NO SIGNIFICANT CHANGES Electronically Signed On 12-20-2022 11:54:55 [employer] by John Randolph D.O.
[2022-12-20] MEDS: CEFDINIR 300 MG CAPSULE PO (12:32)
[2022-12-20] MEDS: AZITHROMYCIN 250 MG TABLET 500 MG PO (12:32)
--- NOTE | 2022-12-20 14:11 | P.DS_ITS ---
DS: Admitting Diagnosis Discharge Date 12/20/22 1400 Admitting Diagnosis Pneumonia/ UTI/COPD exacerbation DS: Discharge Diagnosis Discharge Diagnosis (1) Sepsis: Qualifiers: Sepsis acute organ dysfunction status: unspecified Sepsis type: sepsis due to unspecified organism Qualified Code(s): A41.9 - Sepsis, unspecified organism Code(s): A41.9 - Sepsis, unspecified organism Status: Acute Assessment and Plan: * On 12/16 overnight patient developed high fever at 103.0 with increased leukocytosis, tachypnea and tachycardia. * blood cultures NGTD * Source of infection, Pneumonia and/or UTI * Change antibiotics to azithromycin and cefdinir * WBC stable at 12.0 * Urine culture showed no growth * Stable and seems to be resolved (2) Urinary tract infection: Code(s): N39.0 - Urinary tract infection, site not specified Status: Acute Assessment and Plan: * UA abnormal on admission, however did not reflex to culture. * Repeat urine culture collected on 12/16 consistent with infection. * Given patient's history of ESBL UTI 1 month ago, * DCd Primaxin. * Urine culture shows no growth, however received IV ceftriaxone prior to urine culture * Changed to cefdinir (3) Pneumonia: Code(s): J18.9 - Pneumonia, unspecified organism Status: Acute Assessment and Plan: * Presented with worsening shortness of breath and productive cough over the past 3 days. * CXR was unremarkable * CTA of the head and neck demonstrated bilateral tree-in-bud opacities in the apices of the lungs concerning for infection. * repeat CXR reveals infiltrates (12/16/22) * Change to cefdinir and azithromycin, only needs 2 more days * Aspiration pneumonia unlikely given location and patient is not demonstrating signs of aspiration on swallow study. * Supportive care to include bronchodilators, expectorants, incentive spirometry. * COVID and influenza negative. * Urinary Legionella and pneumococcal antigens not detected * Mycoplasma IgG mildly elevated at 3.64, which likely indicates prior infection * Sputum culture ordered, awaiting collection (4) Urinary retention: Code(s): R33.9 - Retention of urine, unspecified Status: Acute Assessment and Plan: * Patient noted be retaining urine on 12/16 when rapid response was called. * Garcia catheter was initiated. * History of urinary retention * Continue tamsulosin * Urology for outpatient follow up post discharge. * Continue with urinary catheter (5) COPD exacerbation: Code(s): J44.1 - Chronic obstructive pulmonary disease with (acute) exacerbation Status: Acute Assessment and Plan: * Present with worsening hypoxia, wheezes, increased cough with sputum production and changes * Continue prednisone 40mg PO daily total 5 days, currently on day 5/ * Expiratory wheezes noted on exam * Neb treatments ordered * Continue to trend respiratory status (6) Generalized weakness: Code(s): R53.1 - Weakness Status: Acute Assessment and Plan: * Seems the patient has generalized weakness. * Initially complained of left arm weakness, however patient reports this is unchanged for several years since her stroke in 2019. * head/neck CTA with no acute findings. * Neurology consulted * MRI was initially ordered, pacemaker
--- NOTE | 2022-12-20 14:11 | PM.DS ---
DS: Admitting Diagnosis Discharge Date 12/20/22 1400 Admitting Diagnosis Pneumonia/ UTI/COPD exacerbation DS: Discharge Diagnosis Discharge Diagnosis (1) Sepsis: Qualifiers: Sepsis acute organ dysfunction status: unspecified Sepsis type: sepsis due to unspecified organism Qualified Code(s): A41.9 - Sepsis, unspecified organism Code(s): A41.9 - Sepsis, unspecified organism Status: Acute Assessment and Plan: On 12/16 overnight patient developed high fever at 103.0 with increased leukocytosis, tachypnea and tachycardia. blood cultures NGTD Source of infection, Pneumonia and/or UTI Change antibiotics to azithromycin and cefdinir WBC stable at 12.0 Urine culture showed no growth Stable and seems to be resolved (2) Urinary tract infection: Code(s): N39.0 - Urinary tract infection, site not specified Status: Acute Assessment and Plan: UA abnormal on admission, however did not reflex to culture. Repeat urine culture collected on 12/16 consistent with infection. Given patient's history of ESBL UTI 1 month ago, DCd Primaxin. Urine culture shows no growth, however received IV ceftriaxone prior to urine culture Changed to cefdinir (3) Pneumonia: Code(s): J18.9 - Pneumonia, unspecified organism Status: Acute Assessment and Plan: Presented with worsening shortness of breath and productive cough over the past 3 days. CXR was unremarkable CTA of the head and neck demonstrated bilateral tree-in-bud opacities in the apices of the lungs concerning for infection. repeat CXR reveals infiltrates (12/16/22) Change to cefdinir and azithromycin, only needs 2 more days Aspiration pneumonia unlikely given location and patient is not demonstrating signs of aspiration on swallow study. Supportive care to include bronchodilators, expectorants, incentive spirometry. COVID and influenza negative. Urinary Legionella and pneumococcal antigens not detected Mycoplasma IgG mildly elevated at 3.64, which likely indicates prior infection Sputum culture ordered, awaiting collection (4) Urinary retention: Code(s): R33.9 - Retention of urine, unspecified Status: Acute Assessment and Plan: Patient noted be retaining urine on 12/16 when rapid response was called. Garcia catheter was initiated. History of urinary retention Continue tamsulosin Urology for outpatient follow up post discharge. Continue with urinary catheter (5) COPD exacerbation: Code(s): J44.1 - Chronic obstructive pulmonary disease with (acute) exacerbation Status: Acute Assessment and Plan: Present with worsening hypoxia, wheezes, increased cough with sputum production and changes Continue prednisone 40mg PO daily total 5 days, currently on day 5/5 Expiratory wheezes noted on exam Neb treatments ordered Continue to trend respiratory status (6) Generalized weakness: Code(s): R53.1 - Weakness Status: Acute Assessment and Plan: Seems the patient has generalized weakness. Initially complained of left arm weakness, however patient reports this is unchanged for several years since her stroke in 2019. head/neck CTA with no acute findings. Neurology consulted MRI was initially ordered, pacemaker present Continue PT/ OT and plan. Plan for SNF placement, awaiting availability and insurance authorization (7) Dysphagia: Code(s): R13.10 - Dysphagia, unspecified Status: Acute Assessment and Plan: History of dysphagia. follows a soft easy to chew diet at home. Bedside swallow study on 12/15 reviewed, patient can continue with regular diet, however recommended level 7 easy to chew modification which has been implemented. Continue regular liquids. Aspiration precautions in place (8) Parkinson dise
[2022-12-20] MEDS: CARBIDOPA/LEVODOPA 25/250 MG TABLET 1 TABLET PO (14:49)
== END 2022-12-20 15:00 | DRG 871 ==
LOC: ANHED 18:29 → ANH2MED 19:30
PROVIDERS: Emergency Medicine; Internal Medicine; Nurse Practitioner; Physician Assistant; Admitting Provider Family Medicine; Emergency Provider Family Medicine; PCP Physician Assistant; Visit Provider Nurse Practitioner
DX: A41.9 Sepsis, unspecified organism (principal); G93.41 Metabolic encephalopathy; J18.9 Pneumonia, unspecified organism; J96.21 Acute and chronic respiratory failure with hypoxia; I69.354 Hemiplegia and hemiparesis following cerebral infarction affecting left non-dominant side; R44.3 Hallucinations, unspecified; N39.0 Urinary tract infection, site not specified; K92.1 Melena; J43.9 Emphysema, unspecified; D64.9 Anemia, unspecified; E78.5 Hyperlipidemia, unspecified; F41.9 Anxiety disorder, unspecified; F32.A Depression, unspecified; G47.33 Obstructive sleep apnea (adult) (pediatric); G20 Parkinson's disease; I10 Essential (primary) hypertension; I48.0 Paroxysmal atrial fibrillation; I25.10 Atherosclerotic heart disease of native coronary artery without angina pectoris; K21.9 Gastro-esophageal reflux disease without esophagitis; R13.10 Dysphagia, unspecified; R33.9 Retention of urine, unspecified; R31.9 Hematuria, unspecified; Z99.81 Dependence on supplemental oxygen; Z20.822 Contact with and (suspected) exposure to COVID-19; Z79.02 Long term (current) use of antithrombotics/antiplatelets; Z98.41 Cataract extraction status, right eye; Z98.42 Cataract extraction status, left eye; Z90.49 Acquired absence of other specified parts of digestive tract; Z90.710 Acquired absence of both cervix and uterus; Z95.5 Presence of coronary angioplasty implant and graft; Z99.89 Dependence on other enabling machines and devices; Z95.0 Presence of cardiac pacemaker; Z99.3 Dependence on wheelchair; Z87.891 Personal history of nicotine dependence
CPT/HCPCS: 36415; 36600; 70496; 70498; 71045; 71046; 80048; 80053; 81001; 82805; 83735; 84439; 84443; 84480; 85025; 85027; 86738; 87040; 87086; 87449; 87636; 87637; 87899; 92610; 93005; 93306; 94640; 94667; 94668; 97110; 97161; 97165; 97530; 97535; 99285; A9270; J0696; J0743; J2930; J7512; Q9967

== ENCOUNTER 2023-05-05 15:54 | Emergency (ER) | payer MEDICARE, MEDICAID, SELFPAY ==
--- NOTE | ~2023-05-05 | CT_ITS ---
EXAMINATION: CT abdomen pelvis w con INDICATION: Rectal bleeding, constipation TECHNIQUE: Computed tomographic images of the abdomen and pelvis were obtained after the administrati on of 100 cc of Omnipaque 350 intravenous contrast. The dose-length product (DLP) was 387.81 mGy-cm. Automated exposure control and iterative reconstruction technique were employed. COMPARISON: 07/11/2022 FINDINGS: There is a 4 mm nodule in the left lower lobe on image 17, new since the comparison examina tion. The heart size is normal. There is a small sliding hiatal hernia. The liver, spleen, pancreas, gallbladder, and adrenal glands are normal. Hypoattenuating lesions in the kidneys, measuring up to 6 mm on the left, are too small to characterize but likely represent cysts. There is calcified atheros clerosis of the aorta and many of the other arteries. No pathologically enlarged abdominal or pelvic lymph nodes are identified. The appendix is normal. There is circumferential wall thickening of the u rinary bladder with edematous stranding of the surrounding fat. There is mild urothelial enhancement of the kidneys. There is mild lumbar spondylosis. IMPRESSION: 1. Findings consistent with cystitis and ascending urinary tract infection. 2. New 4 mm nodule of the left lower lobe, indeterminate. Follow-up low-dose CT in six months is aleks mmended. Reviewed, dictated and finalized at location F. IMPRESSION: 1. Findings consistent with cystitis and ascending urinary tract infection. 2. New 4 mm nodule of the left lower lobe, indeterminate. Follow-up low-dose CT in six months is recommended.
[2023-05-05 15:59] VITALS: BP 145/70; PULSE 86; RESP 20; TEMP 36.9; O2SAT 96
--- NOTE | 2023-05-05 16:11 | ED.FEMALEGU ---
HPI - Female Genitourinary General Chief complaint: Vaginal Bleeding Stated complaint: pelvic pain, rectal bleeding Time Seen by Provider: 05/05/23 16:11 Source: patient and EMS Mode of arrival: EMS Limitations: no limitations History of Present Illness HPI Narrative: 72 years old white female came [facility] with the chief complaint of vaginal bleed versus rectal bleed started 2 weeks ago. After having medication for 3 days with frequent vaginal intercourse with her . She denies anything unusual about the sex at this days but was hurting subsequently developed vaginal bleed, not sure if it is coming from the rectum or not. She denies any fever, chills, nausea, vomiting, abdominal pain. History of COPD, stroke with gradual improvement, pacemaker. She is not on coagulant medication. Related Data Home Medications Medication Instructions Recorded Confirmed atorvastatin 80 mg tablet 80 mg PO HS 12/10/19 12/13/22 clopidogrel 75 mg tablet (Plavix) 75 mg PO DAILY 12/10/19 12/14/22 sotalol 80 mg tablet 80 mg PO BID 07/11/22 12/13/22 diltiazem HCl 60 mg tablet 120 mg PO TID 12/13/22 12/13/22 docusate sodium 100 mg capsule 100 mg PO BID 12/14/22 12/14/22 melatonin 3 mg tablet 3 mg PO HS PRN Sleep 12/14/22 12/14/22 fluticasone furoate 100 1 inh inhalation HS 12/15/22 12/15/22 mcg-vilanterol 25 mcg/dose inhalation powder (Breo Ellipta) tiotropium bromide 2.5 2 puff inhalation QAM 12/15/22 12/15/22 mcg/actuation mist for inhalation (Spiriva Respimat) Allergies Allergy/AdvReac Type Severity Reaction Status Date / Time No Known Allergies Allergy Verified 07/10/22 10:52 Review of Systems Review of Systems: All systems reviewed & are unremarkable except as noted in HPI and below PMFSH Past Medical History Medical History Anxiety Anxiety and depression Cataracts, bilateral Cerebrovascular accident CVA of the left basal ganglia and internal capsule, with the most recent CVA being July 2019 with right basal ganglia infarct and anterior limb of capsule the patient was hospitalized at [facility] and diagnosed with moyamoya. Chronic anemia Chronic obstructive pulmonary disease Coronary artery disease (2019) History of cardiac stents. Deafness in right ear Depression Gastroesophageal reflux disease Hyperlipidemia Hypertension Kidney abscess Kidney stone Obstructive sleep apnea on CPAP Pacemaker Parkinson disease Paroxysmal atrial fibrillation Normal EF of 63% noted on echo at time of her stroke Subarachnoid hemorrhage The patient had a fall while at [facility] 2 days after her CVA at which time she had 2 small traumatic subarachnoid hemorrhages right frontal, the patient was not started on Eliquis because her repeat CT demonstrated persistent subarachnoid hemorrhages on 08/25/2019. Urinary retention with incomplete bladder emptying Urinary tract infection Surgical History Surgical History History of appendectomy History of bilateral cataract extraction History of cardiac catheterization History of loop recorder History of tonsillectomy History of total hysterectomy with bilateral salpingo-oophorectomy (BSO) Family History Family History Mother COPD (chronic obstructive pulmonary disease) Father COPD (chronic obstructive pulmonary disease) Malignant neoplasm of prostate Sibling Acute myocardial infarction Cancer Social History Social History Social History: The patient is , lives in a senior apartment. 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 Smoked 1 pack of cigarettes a day for 52 years and quit in 2019. No alcohol or illicit substance use. She designates her son, Shin Meza, as her surrogate decision maker and she wishes to be a full cod
--- NOTE | 2023-05-05 16:21 | PC.NURSE ---
Pt states that she is having abdominal cramps. States at 0300 she had a BM and states that when wiping she noticed blood from the rectum. Denies any blood in the toilet or staining her underwear. States the blood is only when wiping. Pt states her abd pain has been on going for 2 days. States the pain has been intermittent. States she has had pain medication before arrival around 1500 which has relieved some of the pain. States she had been constipated and took laxatives. States her stool was then loose this morning.
[2023-05-05 17:09] LABS: Basophils Percent Auto 0.4 % (0.2-1.2); Eosinophils Absolute Auto 0.4 K/mm3 (0-0.3); Eosinophils Percent Auto 3.8 % (0-4.4); Hematocrit 39.5 % (37.0-47.0); Hemoglobin 12.2 g/dL (12.0-15.0); Immature Granulocyte Absolute 0.02 K/mm3 (0.00-0.031); Immature Granulocyte Percent A 0.2 % (0-0.5); Lymphocytes Absolute Auto 2.76 K/mm3 (0.9-3.2); Lymphocytes Percent Auto 28.9 % (18.3-44.2); Mean Corpuscular HGB Conc 30.9 g/dl (32-36); Mean Corpuscular Hemoglobin 27.4 pg (26-34); Mean Corpuscular Volume 88.6 fl (80-100); Mean Platelet Volume 9.6 fl (7.4-10.4); Monocytes Absolute Auto 0.7 K/mm3 (0.1-0.6); Monocytes Percent Auto 7.7 % (2.6-8.5); Neutrophils Absolute Auto 5.6 K/mm3 (1.3-6.7); Platelet Count Result 243 k/mm3 (150-375); Red Blood Count 4.46 M/mm3 (4.2-5.4); White Blood Count 9.6 K/mm3 (4.5-10.0)
[2023-05-05 17:21] LABS: Partial Thromboplastin Time 29.7 SECONDS (22.3-36.8); Prothrombin Time 13.8 Seconds (11.1-14.7)
[2023-05-05] MEDS: SODIUM CHLORIDE 0.9% IV 1,000 ML 999 ML IV CONT (17:26)
[2023-05-05 17:27] LABS: Alanine Aminotransferase 18 U/L (6-35); Albumin Level 4.6 g/dL (3.5-5.1); Alkaline Phosphatase 97 U/L (38-126); Anion Gap 8 mmol/L (8-16); Aspartate Amino Transferase 22 U/L (14-36); Bilirubin,Total 0.6 mg/dL (0.2-1.3); Blood Urea Nitrogen 19 mg/dL (7-17); Calcium 9.4 mg/dL (8.4-10.2); Carbon Dioxide 28 mmol/L (22-30); Chloride 104 mmol/L (98-107); Estimated CRCL calculation 60 ml/min; Estimated Glomerular Filt Rate > 60; Glucose 89 mg/dL (65-110); Potassium 4.3 mmol/L (3.4-5.0); Sodium 140 mmol/L (137-145)
[2023-05-05 17:48] LABS: Lactic Acid Reflex 0.7 mmol/L (0.7-2.0)
[2023-05-05 18:33] LABS: Add Urine Microscopic? YES; Appearance Urine Turbid (Clear); Bacteria Urine 4+ /hpf; Bilirubin Urine Negative (Negative); Blood Urine 3+ (Negative); Color Urine Dark Yellow (Yellow); Glucose Urine UA Negative (Negative); Ketones Urine Trace mg/dL (Negative); Leukocyte Esterase Ur 3+ LEU/UL (Negative); Need Manual Microscopic Reviewed; Nitrate Urine Negative (Negative); Non Pathogenic Casts 0-2; Protein Urine 3+ mg/dL (Negative); RBC Urine 51-100 /hpf (0-2); Specific Grav Ur 1.062 (1.001-1.035); Squamous Epithelial Cell Urine Many /hpf (Few); Urobilinogen Urine 0.2 mg/dL (<2.0); WBC Urine >100 /hpf; pH Urine 5.5 (5.0-9.0)
[2023-05-05 20:08] VITALS: BP 158/88; PULSE 92; RESP 17; O2SAT 96
== END 2023-05-05 20:10 ==
PROVIDERS: Emergency Provider Emergency Medicine; PCP Physician Assistant
DX: K62.5 Hemorrhage of anus and rectum (principal); R91.1 Solitary pulmonary nodule; N39.0 Urinary tract infection, site not specified; K64.9 Unspecified hemorrhoids; J44.9 Chronic obstructive pulmonary disease, unspecified; D64.9 Anemia, unspecified; F41.8 Other specified anxiety disorders; I25.10 Atherosclerotic heart disease of native coronary artery without angina pectoris; I10 Essential (primary) hypertension; E78.5 Hyperlipidemia, unspecified; K21.9 Gastro-esophageal reflux disease without esophagitis; G47.33 Obstructive sleep apnea (adult) (pediatric); G20 Parkinson's disease; I48.0 Paroxysmal atrial fibrillation; Z95.5 Presence of coronary angioplasty implant and graft; Z87.891 Personal history of nicotine dependence; Z95.0 Presence of cardiac pacemaker; Z86.73 Personal history of transient ischemic attack (TIA), and cerebral infarction without residual deficits; Z79.02 Long term (current) use of antithrombotics/antiplatelets; Z79.51 Long term (current) use of inhaled steroids
CPT/HCPCS: 36415; 74177; 80053; 81001; 83605; 85025; 85610; 85730; 87070; 87086; 87088; 87491; 87591; 87808; 96361; 96365; 99284; J0696; J7030; Q9967

== ENCOUNTER 2023-10-20 09:09 | Emergency (ER) | payer MEDICARE, MEDICAID, SELFPAY ==
[2023-10-20] VITALS (13 sets, daily range): BP systolic 110–140; BP diastolic 54–99; PULSE 80–93; RESP 12–20; TEMP 36.6; O2SAT 91–99
--- NOTE | ~2023-10-20 | CT_ITS ---
EXAMINATION: CT abdomen pelvis w con INDICATION: Generalized abdominal pain TECHNIQUE: Computed tomographic images of the abdomen and pelvis were obtained after the administrati on of 100 cc of Omnipaque 350 intravenous contrast. The dose-length product (DLP) was 294.93 mGy-cm. Automated exposure control and iterative reconstruction technique were employed. COMPARISON: 05/05/2023 FINDINGS: The lung bases are clear. The heart size is normal. There is a small sliding hiatal hernia. There is focal fatty infiltration of the liver near the ligamentum teres. The spleen, pancreas, gall bladder, and adrenal glands are normal. Hypoattenuating lesions in the kidneys, measuring up to 6 mm on the left, are too small to characterize but likely represent cysts. There are areas of cortical sc arring in the right kidney. There is mild urothelial enhancement of the ureters. There is circumferen tial wall thickening of the urinary bladder with a subtle adjacent fat stranding. Gas in the urinary bladder could reflect recent catheterization. No pathologically enlarged abdominal or pelvic lymph no kaitlyn are identified. No free intraperitoneal gas or evidence of bowel obstruction. The appendix is nor mal. There is mild lumbar spondylosis. IMPRESSION: 1. Findings consistent with cystitis and ascending urinary tract infection. Reviewed, dictated and finalized at location A. ONAL DRIVER
--- NOTE | 2023-10-20 11:08 | ED.FEMALEGU ---
HPI - Female Genitourinary General Chief complaint: Urogenital-Female Stated complaint: urogenital Time Seen by Provider: 10/20/23 10:14 Source: patient Mode of arrival: ambulatory Limitations: no limitations History of Present Illness HPI Narrative: This is a 73-year-old female with PMH of CAD, HLD, COPD, Parkinson's who presents to the ED with chief complaint difficulty with urination over the past 3 weeks. Reports that she was seen by her doctor initially and was given are round of antibiotics which she took her small course. She reports it was not helping much so she started taking antibiotics that her had left over at home. She reports she took a few days of that and started to feel better, however 4 days ago she started developing increasing dysuria and difficulty urinating. She also reports constipation for the past week and that it is difficult to pass a bowel movement due to generalized abdominal discomfort. States she is still passing gas. Reports 1 episode of vomiting last night but none since. Denies fevers, chills, flank pain, headache, neck pain, chest pain, shortness of breath, chest pain, cough, nausea. Patient and family are unable to tell me what antibiotic she took. Related Data Home Medications Medication Instructions Recorded Confirmed atorvastatin 80 mg tablet 80 mg PO HS 12/10/19 12/13/22 clopidogrel 75 mg tablet (Plavix) 75 mg PO DAILY 12/10/19 12/14/22 sotalol 80 mg tablet 80 mg PO BID 07/11/22 12/13/22 diltiazem HCl 60 mg tablet 120 mg PO TID 12/13/22 12/13/22 docusate sodium 100 mg capsule 100 mg PO BID 12/14/22 12/14/22 melatonin 3 mg tablet 3 mg PO HS PRN Sleep 12/14/22 12/14/22 fluticasone furoate 100 1 inh inhalation HS 12/15/22 12/15/22 mcg-vilanterol 25 mcg/dose inhalation powder (Breo Ellipta) tiotropium bromide 2.5 2 puff inhalation QA 12/15/22 12/15/22 mcg/actuation mist for inhalation (Spiriva Respimat) Allergies Allergy/AdvReac Type Severity Reaction Status Date / Time No Known Allergies Allergy Verified 10/20/23 11:32 Review of Systems Review of Systems: All systems as dictated in [facility] Past Medical History Medical History Anxiety Anxiety and depression Cataracts, bilateral Cerebrovascular accident CVA of the left basal ganglia and internal capsule, with the most recent CVA being July 2019 with right basal ganglia infarct and anterior limb of capsule the patient was hospitalized at [facility] and diagnosed with moyamoya. Chronic anemia Chronic obstructive pulmonary disease Coronary artery disease (2019) History of cardiac stents. Deafness in right ear Depression Gastroesophageal reflux disease Hyperlipidemia Hypertension Kidney abscess Kidney stone Obstructive sleep apnea on CPAP Pacemaker Parkinson disease Paroxysmal atrial fibrillation Normal EF of 63% noted on echo at time of her stroke Subarachnoid hemorrhage The patient had a fall while at [facility] 2 days after her CVA at which time she had 2 small traumatic subarachnoid hemorrhages right frontal, the patient was not started on Eliquis because her repeat CT demonstrated persistent subarachnoid hemorrhages on 08/25/2019. Urinary retention with incomplete bladder emptying Urinary tract infection Surgical History Surgical History History of appendectomy History of bilateral cataract extraction History of cardiac catheterization History of loop recorder History of tonsillectomy History of total hysterectomy with bilateral salpingo-oophorectomy (BSO) Family History Family History Mother COPD (chronic obstructive pulmonary disease) Father COPD (chronic obstructive pulmonary disease) Malignant neoplasm of prostate Sibling Acute myocardial infarction Cancer Social History
[2023-10-20 11:19] LABS: Appearance Urine Turbid (Clear); Bacteria Urine 4+ /hpf; Bilirubin Urine Negative (Negative); Blood Urine 2+ (Negative); Color Urine Yellow (Yellow); Glucose Urine UA Negative (Negative); Ketones Urine Trace mg/dL (Negative); Leukocyte Esterase Ur 3+ LEU/UL (Negative); Need Manual Microscopic Reviewed; Nitrate Urine Negative (Negative); Non Pathogenic Casts 0-2; Protein Urine 2+ mg/dL (Negative); Specific Grav Ur 1.015 (1.001-1.035); Squamous Epithelial Cell Urine None seen /hpf (Few); WBC Urine >100 /hpf
[2023-10-20 11:20] LABS: Add Urine Microscopic? YES
[2023-10-20 11:40] LABS: Basophils Percent Auto 0.6 % (0.2-1.2); Eosinophils Absolute Auto 0.2 K/mm3 (0-0.3); Eosinophils Percent Auto 3.4 % (0-4.4); Hematocrit 39.1 % (37.0-47.0); Hemoglobin 11.9 g/dL (12.0-15.0); Immature Granulocyte Absolute 0.01 K/mm3 (0.00-0.031); Immature Granulocyte Percent A 0.1 % (0-0.5); Lymphocytes Absolute Auto 1.84 K/mm3 (0.9-3.2); Lymphocytes Percent Auto 26.1 % (18.3-44.2); Mean Corpuscular HGB Conc 30.4 g/dl (32-36); Mean Corpuscular Hemoglobin 27.9 pg (26-34); Mean Corpuscular Volume 91.8 fl (80-100); Mean Platelet Volume 9.5 fl (7.4-10.4); Monocytes Absolute Auto 0.6 K/mm3 (0.1-0.6); Monocytes Percent Auto 8.1 % (2.6-8.5); Neutrophils Absolute Auto 4.4 K/mm3 (1.3-6.7); Neutrophils Percent Auto 61.7 % (45.5-73.1); Platelet Count Result 227 k/mm3 (150-375); Red Blood Count 4.26 M/mm3 (4.2-5.4); Red Cell Distribution Width 14.5 % (11.5-14.5); White Blood Count 7.1 K/mm3 (4.5-10.0)
[2023-10-20 11:53] LABS: Alanine Aminotransferase 13 U/L (6-35); Albumin Level 4.2 g/dL (3.5-5.1); Alkaline Phosphatase 97 U/L (38-126); Anion Gap 10 mmol/L (8-16); Aspartate Amino Transferase 21 U/L (14-36); Bilirubin,Total 0.5 mg/dL (0.2-1.3); Blood Urea Nitrogen 15 mg/dL (7-17); Calcium 9.2 mg/dL (8.4-10.2); Carbon Dioxide 27 mmol/L (22-30); Chloride 102 mmol/L (98-107); Estimated CRCL calculation 68 ml/min; Estimated Glomerular Filt Rate > 60; Glucose 103 mg/dL (65-110); Potassium 4.1 mmol/L (3.4-5.0); Sodium 139 mmol/L (137-145)
[2023-10-20] MEDS: ONDANSETRON INJ 4 MG/2 ML VIAL IV PUSH (11:53)
[2023-10-20] MEDS: ceFAZolin 1 GM/NS 50 ML 1 GM/50 ML BAG IVPB (11:54)
[2023-10-20] MEDS: MORPHINE SULFATE (*CRX) 2 MG/ML INJ IV PUSH (11:54)
== END 2023-10-20 14:40 | disposition home or self-care (01) ==
PROVIDERS: Emergency Provider Physician Assistant; PCP Physician Assistant
DX: N39.0 Urinary tract infection, site not specified (principal); I25.10 Atherosclerotic heart disease of native coronary artery without angina pectoris; E78.5 Hyperlipidemia, unspecified; J44.9 Chronic obstructive pulmonary disease, unspecified; G20.A1 Parkinson's disease without dyskinesia, without mention of fluctuations; I48.0 Paroxysmal atrial fibrillation; D64.9 Anemia, unspecified; G47.33 Obstructive sleep apnea (adult) (pediatric); K21.9 Gastro-esophageal reflux disease without esophagitis; Z95.0 Presence of cardiac pacemaker; Z87.442 Personal history of urinary calculi; Z86.73 Personal history of transient ischemic attack (TIA), and cerebral infarction without residual deficits; Z87.891 Personal history of nicotine dependence; Z98.42 Cataract extraction status, left eye; Z98.41 Cataract extraction status, right eye; Z90.710 Acquired absence of both cervix and uterus; Z90.722 Acquired absence of ovaries, bilateral; Z90.79 Acquired absence of other genital organ(s); Z79.02 Long term (current) use of antithrombotics/antiplatelets
CPT/HCPCS: 36415; 74177; 80053; 81001; 85025; 87077; 87086; 87186; 96365; 96375; 99284; J0690; J2270; J2405; Q9967

== ENCOUNTER 2024-04-19 14:28 | Inpatient (IN) | payer MEDICARE, MEDICAID, SELFPAY ==
[2024-04-19] VITALS (22 sets, daily range): BP systolic 84–141; BP diastolic 41–59; PULSE 108–158; RESP 21–39; TEMP 37.2–40.1; O2SAT 93–100
--- NOTE | ~2024-04-19 | CT_ITS ---
Clinical Indication: Pulmonary embolus CT Scan of the Chest, Abdomen, and Pelvis with Contrast: Technique: Contiguous sections were acquired throughout the chest, abdomen, and pelvis after intraven ous administration of 100 cc of Omnipaque 350. Dose reduction technique was used on this scan by uti lizing automated exposure control and iterative reconstruction technique. The dose-length product (DL P) was 605.33 mGy-cm. COMPARISON: 10/20/2023 Findings: There is no evidence of any significant mediastinal, hilar or axillary lymphadenopathy. The mediastin al soft tissues appear normal. There is no evidence of pleural or pericardial effusion. 6 mm right apical pulmonary nodule present (axial image 21). 4 mm left lower lobe pulmonary nodule pr esent (axial image 73). Calcified left upper lobe granuloma noted. The liver, spleen, pancreas, gallbladder, adrenals and kidneys are within normal limits. There are at herosclerotic calcifications of the aorta. . No lymphadenopathy. No bowel obstruction. There is prominent stool at the rectum and distal large bowel, compatible fecal impaction/constipation. There is mild diffuse large bowel wall thickening, suggestive of infectious/ inflammatory colitis. Urinary bladder is collapsed around a Garcia catheter. No pelvic mass evident. No ascites. Mild compression deformity of T11 noted. Impression: Mild diffuse large bowel wall thickening suggests an infectious/inflammatory colitis. Fecal impaction/constipation. No pulmonary embolus. Pulmonary nodules, as above. According to Fleischner Society criteria, for a low-risk patient, follow -up CT scan in 6-12 months advised, then consider additional 18-[address] For a high-risk patient, follow-up CT scans at both 6-12 months and 18-24 months are recommended. Mild T11 compression fracture. Reviewed, dictated and finalized at [facility]. Impression: Mild diffuse large bowel wall thickening suggests an infectious/inflammatory co litis. Fecal impaction/constipation. No pulmonary embolus. Pulmonary nodules, as above. According to Fleischner Society criteria, for a lo w-risk patient, follow-up CT scan in 6-12 months advised, then consider additio nal 18-[address] For a high-risk patient, follow-up CT scans at both 6-12 mo nths and 18-24 months are recommended. Mild T11 compression fracture.
--- NOTE | ~2024-04-19 | XR_ITS ---
EXAMINATION: XR chest 1V portable DATE: 04/20/2024 11:23 INDICATION: Hypoxia. TECHNIQUE: A single frontal view of the chest was obtained. COMPARISON: Chest single view 12/16/2022 FINDINGS: There is a diffuse interstitial pattern, consistent with mild pulmonary edema. There is no pneumonia, pleural effusion, or pneumothorax. The heart size is normal. There is a left chest wall pa cer with leads in the right atrium and right ventricle. IMPRESSION: 1. Mild pulmonary edema. Reviewed, dictated and finalized at location E. IMPRESSION: 1. Mild pulmonary edema.
--- NOTE | ~2024-04-19 | CT_ITS ---
CT head without contrast Indication: Altered mental status COMPARISON: 12/13/2022 Technique: Serial scans were obtained through the brain without the administration of contrast. Dose reduction technique was used on this scan by utilizing automated exposure control and iterative recon struction technique. The dose-length product (DLP) was 605.33 mGy-cm. Findings: There is no evidence of intracranial hemorrhage, mass lesion, or acute infarct. 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 Stable chronic infarct in the left caudate nucleus/periventricular white matter. The ventricles and subarachnoid spaces are dil ated, consistent with mild to moderate atrophy. Low attenuation regions are seen within the perivent ricular white matter bilaterally, likely representing changes from chronic microvascular ischemic dis ease. There is no evidence of edema, mass effect or midline shift. The visualized paranasal sinuses and mastoid air cells are clear. Impression: No intracranial hemorrhage, mass, or acute infarct. Chronic bilateral infarcts, as above, unchanged. Atrophy and chronic white matter changes, as above. Reviewed, dictated and finalized at location . Impression: No intracranial hemorrhage, mass, or acute infarct. Chronic bilateral infarcts, as above, unchanged. Atrophy and chronic white matter changes, as above.
--- NOTE | 2024-04-19 14:49 | ECG_ITS ---
SEE SCANNED COPY FOR CONFIRMED REPORT MTDD
--- NOTE | 2024-04-19 15:02 | ED.SEIZURE ---
HPI - Seizure General Chief Complaint: Seizure Stated Complaint: seizure Time Seen by Provider: 04/19/24 14:47 History of Present Illness HPI Narrative: Patient is a 73-year-old female who presented to the ER from [facility] via EMS for seizure-like activity. Patient reportedly has history of dementia and at baseline is alert oriented x1. Today she had a witnessed episode of tonic clonic movements that lasted approximately 2 minutes. No known history of seizures told the staff however based on paperwork it does appear that she is on Keppra b.i.d. for seizures. This history is obtained from nursing staff as patient is unable to provide any history herself. Her assisted paperwork she has a history of coronary artery disease, depression, anxiety, hyperlipidemia, CVA, pacemaker in place, GERD, diabetes, AFib, COPD. Facility had told staff and EMS that she has required oxygen over the last few days. She does not typically wear oxygen. She was febrile on arrival to the emergency department at 104 F. Related Data Home Medications Medication Instructions Recorded Confirmed atorvastatin 80 mg tablet 80 mg PO HS 12/10/19 12/13/22 clopidogrel 75 mg tablet (Plavix) 75 mg PO DAILY 12/10/19 12/14/22 sotalol 80 mg tablet 80 mg PO BID 07/11/22 12/13/22 diltiazem HCl 60 mg tablet 120 mg PO TID 12/13/22 12/13/22 docusate sodium 100 mg capsule 100 mg PO BID 12/14/22 12/14/22 melatonin 3 mg tablet 3 mg PO HS PRN Sleep 12/14/22 12/14/22 fluticasone furoate 100 1 inh inhalation HS 12/15/22 12/15/22 mcg-vilanterol 25 mcg/dose inhalation powder (Breo Ellipta) tiotropium bromide 2.5 2 puff inhalation QAM 12/15/22 12/15/22 mcg/actuation mist for inhalation (Spiriva Respimat) Allergies Allergy/AdvReac Type Severity Reaction Status Date / Time No Known Allergies Allergy Verified 04/19/24 15:45 Review of Systems Review of Systems: ROS unobtainable: Yes unobtainable due to mental status PMFSH Past Medical History Medical History Anxiety Anxiety and depression Cataracts, bilateral Cerebrovascular accident CVA of the left basal ganglia and internal capsule, with the most recent CVA being July 2019 with right basal ganglia infarct and anterior limb of capsule the patient was hospitalized at [facility] and diagnosed with moyamoya. Chronic anemia Chronic obstructive pulmonary disease Coronary artery disease (2019) History of cardiac stents. Deafness in right ear Depression Gastroesophageal reflux disease Hyperlipidemia Hypertension Kidney abscess Kidney stone Obstructive sleep apnea on CPAP Pacemaker Parkinson disease Paroxysmal atrial fibrillation Normal EF of 63% noted on echo at time of her stroke Subarachnoid hemorrhage The patient had a fall while at [facility] 2 days after her CVA at which time she had 2 small traumatic subarachnoid hemorrhages right frontal, the patient was not started on Eliquis because her repeat CT demonstrated persistent subarachnoid hemorrhages on 08/25/2019. Urinary retention with incomplete bladder emptying Urinary tract infection Surgical History Surgical History History of appendectomy History of bilateral cataract extraction History of cardiac catheterization History of loop recorder History of tonsillectomy History of total hysterectomy with bilateral salpingo-oophorectomy (BSO) Family History Family History Mother COPD (chronic obstructive pulmonary disease) Father COPD (chronic obstructive pulmonary disease) Malignant neoplasm of prostate Sibling Acute myocardial infarction Cancer Social History Social History Social History: She is . Her is a over the road catering truck driver who comes is here
[2024-04-19] MEDS: SODIUM CHLORIDE 0.9% IV 1,000 ML 999 ML (15:09)
[2024-04-19] MEDS: ACETAMINOPHEN 650 MG SUPPOSITORY (15:09)
[2024-04-19 15:21] LABS: Basophils Percent Auto 0.4 % (0.2-1.2); Eosinophils Percent Auto 0.2 % (0-4.4); Hematocrit 39.3 % (37.0-47.0); Hemoglobin 11.2 g/dL (12.0-15.0); Immature Granulocyte Absolute 0.05 K/mm3 (0.00-0.031); Immature Granulocyte Percent A 0.5 % (0-0.5); Lymphocytes Absolute Auto 2.27 K/mm3 (0.9-3.2); Lymphocytes Percent Auto 21.3 % (18.3-44.2); Mean Corpuscular HGB Conc 28.5 g/dl (32-36); Mean Corpuscular Hemoglobin 26.7 pg (26-34); Mean Corpuscular Volume 93.6 fl (80-100); Monocytes Absolute Auto 0.9 K/mm3 (0.1-0.6); Monocytes Percent Auto 8.6 % (2.6-8.5); Neutrophils Absolute Auto 7.4 K/mm3 (1.3-6.7); Platelet Count Result 179 k/mm3 (150-375); Red Cell Distribution Width 16.4 % (11.5-14.5); White Blood Count 10.7 K/mm3 (4.5-10.0)
[2024-04-19 15:31] LABS: INR 1.8
[2024-04-19 15:32] LABS: Partial Thromboplastin Time 28.6 Seconds (22.3-36.8)
[2024-04-19 15:34] LABS: Lactic Acid Reflex 2.8 mmol/L (0.7-2.0)
[2024-04-19 15:36] LABS: Alanine Aminotransferase 21 U/L (6-35); Albumin Level 4.1 g/dL (3.5-5.1); Alkaline Phosphatase 59 U/L (38-126); Anion Gap 6 mmol/L (4-12); Aspartate Amino Transferase 75 U/L (14-36); Bilirubin,Total 0.7 mg/dL (0.2-1.3); Blood Urea Nitrogen 19 mg/dL (7-17); CRP 0.7 mg/dL (<1.0); Carbon Dioxide 33 mmol/L (22-30); Chloride 114 mmol/L (98-107); Estimated CRCL calculation 67 ml/min; Estimated Glomerular Filt Rate > 60; Glucose 141 mg/dL (65-110); Lipase 312 U/L (23-300); Potassium 3.2 mmol/L (3.4-5.0); Sodium 153 mmol/L (137-145)
[2024-04-19] MEDS: LACTATED RINGERS 2,200 ML/1,000 ML BAG 999 ML IV CONT ×3 (15:39→18:10)
[2024-04-19] MEDS: CEFEPIME 2 GM/NS 50 ML 2 GM/50 ML BAG IVPB (15:40)
[2024-04-19 15:42] LABS: Appearance Urine Turbid (Clear); Bacteria Urine 4+ /hpf; Bilirubin Urine 2+ (Negative); Blood Urine 2+ (Negative); Color Urine Dark Yellow (Yellow); Glucose Urine UA Negative (Negative); Ketones Urine Trace mg/dL (Negative); Leukocyte Esterase Ur 3+ LEU/UL (Negative); Need Manual Microscopic Reviewed; Nitrate Urine Negative (Negative); Non Pathogenic Casts >20; Protein Urine 3+ mg/dL (Negative); RBC Urine 51-100 /hpf (0-2); Squamous Epithelial Cell Urine Many /hpf (Few); WBC Urine >100 /hpf (0-3)
[2024-04-19 15:45] LABS: Troponin I 0.021 ng/mL (0.000-0.034)
[2024-04-19 15:46] LABS: Platelet Estimate Adequate (Adequate)
[2024-04-19 15:47] LABS: Anisocytosis 2+; Hypochromasia 1+; Schistocytes None Seen
[2024-04-19 15:59] LABS: Add Urine Microscopic? YES
--- NOTE | 2024-04-19 16:17 | PC.NURSE ---
Pt to CT scan via stretcher at this time. Fluids infusing. Family at bedside.
[2024-04-19 16:18] LABS: Influenza A QL RT-PCR Negative (Negative); Influenza B QL RT-PCR Negative (Negative); RSV RNA, RT-PCR Negative (Negative); SARS-CoV-2 RNA PCR Negative (Negative)
[2024-04-19] MEDS: VANCOMYCIN 1,750 MG/NS 500 ML 1,750 MG/500 ML BAG 250 MG IVPB (18:12)
[2024-04-19 18:18] LABS: Reflex Lactic Acid Yes or No Add Lactic
[2024-04-19] MEDS: levETIRAcetam 1000MG/NACL100ML 1,000 MG/100 ML BAG 400 MG IVPB ×2 (18:20→18:27)
[2024-04-19 18:49] LABS: Lactic Acid 1.4 mmol/L (0.7-2.0)
[2024-04-19] MEDS: NOREPINEPHRINE 8 MG/D5W 250 ML 8 MG/250 ML BAG 9.38 MG IV CONT (20:38)
--- NOTE | 2024-04-19 20:44 | PM.IMHP ---
H&P: HPI History of Present Illness Date/Time: 04/19/24 20:44 Chief Complaint: 2 minute long seizure Narrative: 73-year-old female with a complex past medical history including, but not limited to, dementia, chronic atrial fibrillation, multiple CVAs, seizure disorder, COPD, obstructive sleep apnea, coronary artery disease, pacemaker, chronic urinary retention with incomplete bladder emptying and frequent UTIs who presented to the ER from [facility] after a witnessed 2 minute long tonic clonic seizure. According to ER physician report patient was just discharged from [facility] 8 days ago. She was treated for UTI with a long acting IV antibiotic. According to the ER physician report the day after the patient arrived at the assisted she spiked a fever of 103. Been reported the patient was treated with a wet towel that had been placed in the freezer with resolution of her fever. Reportedly her fever did not recur recur until today. On arrival to ER the patient was febrile with a T-max of 104.1? her UA was suggestive of UTI and CTA of the chest abdomen and pelvis suggested possible infectious or inflammatory colitis with diffuse large bowel wall thickening accompanied with fecal impaction and constipation. reports that the assisted placed the patient on oxygen a couple of days ago he denies her being on chronic oxygen therapy despite elicit history of chronic respiratory failure. Patient was in AFib RVR on arrival to the ER with heart rates in the 140s to 150s. Heart rate improved after treatment of fever and 30 mL/kilos fluid bolus. Labs also demonstrated acute hypernatremia with sodium 153. On initial report with the possibility of new onset seizure the patient had received acyclovir but after review of patient's chart patient is on Keppra chronically 750 mg b.i.d. meningitis is a less likely reason for patient seizure. Patient was not a candidate for lumbar puncture due to her history of anticoagulation with Eliquis. Patient was treated with cefepime and vancomycin. Blood cultures and urine cultures were obtained. Despite 30 mL/kilos fluid bolus patient's blood pressures were trending low with systolics in the mid 80s with mean arterial pressures of 62. The patient was started on peripheral Levophed in the ER. The patient arrived with Garcia catheter in place. reports patient has had a catheter on and off since recent hospitalizations. Garcia catheter was exchanged in the ER. Blood pressure that improved on arrival to the ICU with Levophed at 5 patient's systolic blood pressures were in the 90s to the low 100s. Patient's heart rate was still in the 120s. The patient was having intermittent left lower extremity rhythmic shaking with associated deviation of the eyes to the left. These episodes would last between 30 seconds to 45 seconds and occurred 3 times during my evaluation. But then no longer recurred. The patient was not responding verbally. The patient's reports that the patient was living in her own apartment until 8 or 9 months ago. After hospitalization she went to a correction facility. He took her out of the facility for weekend and decided that she was doing good enough that he just took her with him over the road. He stated that she traveled with him over the road to [facility] and [facility] [place] [facility] and was doing well until about 2 and half months ago when she had what sounds like an occlusive stroke and was taken to [facility]. She received tPA and then was transferred to [facility] since then she has been in her hospital numerous times for what sounds like sepsis, AFib RVR and or recurrent neurologic issues. Since her most recent strokes she has developed decubitus ulcers on her buttocks. He states that she has been in out of acute rehab and was just this past week discharge to [facility] instead of acute inpatient rehab. She has been h
--- NOTE | 2024-04-19 20:46 | PC.NURSE ---
Pt noted to have stool around rectal tube. Rectal tube discontinued at this time.
[2024-04-19] MEDS: AMPICILLIN 2 GM/NS 100 ML 2 GM/100 ML BAG IVPB (20:52)
[2024-04-19] MEDS: SODIUM CHLORIDE 0.9% IV 1,000 ML 150 ML IV CONT (21:36)
[2024-04-19] MEDS: POTASSIUM CHLORIDE INJ 40 MEQ in SODIUM CHLORIDE 0.9% IV 500 ML 130 MEQ IVPB (22:24)
--- NOTE | 2024-04-19 22:27 | WPDPROCEDUR ---
Procedures Central Line Placement Right Femoral: Central Line Date: 04/19/24 Central Line Time: 02:15 Discussed w/ the patient/family/POA,the placement of a central venous catheter, including its clinical necessity/indication & associated potential risks, benifits and alternatives.: Yes The patient/family/POA understand(s) and acknowledge(s) the need to proceed with central venous catheter insertion as an important element of the patient's clinical management.: Yes Consent: I have discussed with the patient and/or surrogate, the non-emergent placement of a central venous catheter, including its clinical necessity/indication and associated potential risks and complications. The patient and/or surrogate understand(s) and acknowledge(s) the need to proceed with central venous catheter insertion as an important element of the patient's clinical management. Time Out Performed: Yes Patient Position: other (Vascular) Patient placed on monitor/pulse ox: Yes Provider Prep: mask, sterile gown, sterile gloves, Max. sterile barrier precautions, cap and hand hygiene with conventional soap/water or alcohol based hand rub Central line prep: 2% Chlorhexidine scrub and sterile full body sheet applied Local anesthesia used: lidocaine 1% Amount of anesthesia used (ml): 5 Sterile US Technique with sterile gel/sterile probe covers: Yes Central line lumen inserted: triple Luxembourgish: 7 Length (cm): 20 Depth of Insertion (cm): 20 Post Procedure: sutured in place, good blood return, all ports aspirated, flushed, capped, transparent dressing, hemostatic product, antimicrobial product, securement product and aseptic technique maintained throughout procedure Patient tolerated procedure: well Complications: none
[2024-04-19 22:32] LABS: Fractional Inspired Oxygen 36 %; HCO3 VBG 27.1 mEq/l (24.0-30.0); PO2 VBG 41.8 mmHg (35.0-45.0); pH VBG 7.343 (7.300-7.400)
[2024-04-19] MEDS: metroNIDAZOLE 250MG/ISO 50 ML 250 MG/50 ML BAG 50 MG IVPB (22:32)
[2024-04-19 22:33] LABS: Device NASAL CANNULA
[2024-04-19] MEDS: BISACODYL 10 MG SUPPOSITORY RECTAL (22:37)
--- NOTE | 2024-04-19 22:44 | ADMGEN ---
This patient, Miracle Mazariegos, was admitted to Intensive Care Unit-6 at 2110. Patient/family oriented to hospital policies and general routines including ID bracelet, bed and alarms, visiting hours, pain management, procedures, bathroom and other care routines, personal items, smoking policy, room service/diet, and visiting hours. Information on how to activate the Rapid Response Team has been discussed. Patient/Family are encouraged to report perceived risks to care and to ask questions if they do not understand what they are told or what they should do.
[2024-04-19 22:57] LABS: Troponin I 0.021 ng/mL (0.000-0.034)
[2024-04-19 23:01] LABS: Anion Gap 1 mmol/L (4-12); Blood Urea Nitrogen 14 mg/dL (7-17); Calcium 7.7 mg/dL (8.4-10.2); Carbon Dioxide 33 mmol/L (22-30); Chloride 115 mmol/L (98-107); Estimated CRCL calculation 96 ml/min; Estimated Glomerular Filt Rate > 60; Glucose 137 mg/dL (65-110); Potassium 2.7 mmol/L (3.4-5.0); Sodium 149 mmol/L (137-145)
[2024-04-19 23:13] LABS: Magnesium 1.8 mg/dL (1.6-2.3)
[2024-04-20] VITALS (62 sets, daily range): BP systolic 79–136; BP diastolic 43–94; PULSE 93–135; RESP 15–36; TEMP 36.5–37.6; O2SAT 95–100
[2024-04-20 01:00] LABS: MRSA (PCR) DETECTED (NOT DETECTE)
[2024-04-20] MEDS: AMIODARONE 360 MG/D5W 200 ML 360 MG/200 ML BAG 33.33 MG IV CONT (01:27)
[2024-04-20] MEDS: AMIODARONE 150 MG/D5W 100 ML 150 MG/100 ML BAG 600 MG IV CONT (01:30)
[2024-04-20] MEDS: LEVALBUTEROL NEB 1.25 MG/3 ML INHALATION ×4 (01:56→20:21)
[2024-04-20] MEDS: IPRATROPIUM BR 0.02% INH SOLN 0.5 MG/2.5 ML VIAL INHALATION ×4 (01:56→20:21)
[2024-04-20] MEDS: metroNIDAZOLE 250MG/ISO 50 ML 250 MG/50 ML BAG 50 MG IVPB (03:35)
[2024-04-20] MEDS: CEFEPIME 2 GM/NS 50 ML 2 GM/50 ML BAG IVPB (03:43)
[2024-04-20 04:53] LABS: Basophils Percent Auto 0.4 % (0.2-1.2); Eosinophils Absolute Auto 0.1 K/mm3 (0-0.3); Eosinophils Percent Auto 1.3 % (0-4.4); Hematocrit 30.1 % (37.0-47.0); Hemoglobin 8.5 g/dL (12.0-15.0); Immature Granulocyte Absolute 0.03 K/mm3 (0.00-0.031); Immature Granulocyte Percent A 0.3 % (0-0.5); Lymphocytes Absolute Auto 1.38 K/mm3 (0.9-3.2); Lymphocytes Percent Auto 13.4 % (18.3-44.2); Mean Corpuscular HGB Conc 28.2 g/dl (32-36); Mean Corpuscular Hemoglobin 26.6 pg (26-34); Mean Corpuscular Volume 94.4 fl (80-100); Monocytes Absolute Auto 1.1 K/mm3 (0.1-0.6); Monocytes Percent Auto 10.5 % (2.6-8.5); Neutrophils Absolute Auto 7.6 K/mm3 (1.3-6.7); Neutrophils Percent Auto 74.1 % (45.5-73.1); Platelet Count Result 150 k/mm3 (150-375); Red Blood Count 3.19 M/mm3 (4.2-5.4); Red Cell Distribution Width 16.6 % (11.5-14.5); White Blood Count 10.3 K/mm3 (4.5-10.0)
[2024-04-20 05:21] LABS: Alanine Aminotransferase 25 U/L (6-35); Albumin Level 2.8 g/dL (3.5-5.1); Alkaline Phosphatase 53 U/L (38-126); Anion Gap 3 mmol/L (4-12); Aspartate Amino Transferase 30 U/L (14-36); Bilirubin,Total 0.5 mg/dL (0.2-1.3); Blood Urea Nitrogen 11 mg/dL (7-17); Calcium 7.6 mg/dL (8.4-10.2); Carbon Dioxide 28 mmol/L (22-30); Chloride 118 mmol/L (98-107); Estimated CRCL calculation 122 ml/min; Estimated Glomerular Filt Rate > 60; Glucose 174 mg/dL (65-110); Magnesium 1.7 mg/dL (1.6-2.3); Phosphorus 2.8 mg/dL (2.5-4.5); Potassium 2.9 mmol/L (3.4-5.0); Sodium 149 mmol/L (137-145)
[2024-04-20 05:35] LABS: Anisocytosis 1+; Hypochromasia 1+; Platelet Estimate Adequate (Adequate)
[2024-04-20 05:36] LABS: Poikilocytosis 2+
[2024-04-20 05:37] LABS: Acanthocytes 1+; Burr Cells 1+; Schistocytes None Seen
[2024-04-20] MEDS: SODIUM CHLORIDE 0.9% IV 1,000 ML 150 ML IV CONT (06:06)
[2024-04-20] MEDS: CENTRAL LINE FLUSH 10 ML IV PUSH ×3 (06:07→20:34)
[2024-04-20] MEDS: AMIODARONE 360 MG/D5W 200 ML 360 MG/200 ML BAG 16.67 MG IV CONT ×2 (07:07→18:51)
[2024-04-20] MEDS: KCL 40 MEQ/WATER 100 ML 100 ML 25 ML IVPB (07:56)
[2024-04-20] MEDS: LACTATED RINGERS 1,000 ML 100 ML IV CONT (07:56)
[2024-04-20] MEDS: PANTOPRAZOLE SODIUM IV 40 MG VIAL IV PUSH (08:08)
[2024-04-20] MEDS: ALBUMIN HUMAN 25% 25 GM/100 ML 100 ML IVPB (08:15)
[2024-04-20] MEDS: MAGNESIUM SULF 2 GM/WATER 50ML 2 GM/50 ML BAG IVPB (08:15)
[2024-04-20] MEDS: KCL 20 MEQ/0.45% NS 1,000 ML 100 ML IV CONT (08:31)
[2024-04-20] MEDS: VANCOMYCIN 1,250 MG/NS 250 ML 1,250 MG/250 ML BAG 166.67 MG IVPB (08:46)
--- NOTE | 2024-04-20 08:52 | WPDCNINT ---
Assessment and Plan Assessment and plan (1) Septic shock: Code(s): A41.9 - Sepsis, unspecified organism; R65.21 - Severe sepsis with septic shock Status: Acute Assessment and Plan: Patient admitted secondary to septic shock secondary to UTI, stercoral colitis and possible meningitis Patient has history of frequent UTIs and has indwelling Garcia. Which was changed Patient received 30 mL/kg IV fluid bolus and will continue maintenance IV fluids Add 25% albumin Continue Levophed titration to maintain mean arterial pressure. Blood and urine cultures have been sent and are pending CT scan shows colitis although patient does not have any diarrhea and has chronic constipation Patient also presented with encephalopathy and episode of seizure. She does have history of seizure disorder She this could be toxic metabolic encephalopathy secondary to sepsis and medications but patient was empirically started on antibiotic coverage to cover for meningitis and encephalitis. Eliquis has been held and LP deferred Will request IR for CT-guided LP 24 hours after holding Eliquis Continue empiric vancomycin. Change cefepime Flagyl and ampicillin to meropenem to cover for ESBL, Gram-negative rods, listeria and anaerobic coverage. Continue acyclovir although presentation unlikely to be consistent with encephalitis (2) Electrolyte abnormality: Code(s): E87.8 - Other disorders of electrolyte and fluid balance, not elsewhere classified Status: Acute Assessment and Plan: IV fluids changed to half-normal saline Potassium replacement ordered Repeat BMP later in the day (3) Seizure: Code(s): R56.9 - Unspecified convulsions Status: Acute Assessment and Plan: Patient has history of seizure disorder Continue Keppra Seizure precautions (4) Persistent atrial fibrillation with RVR: Code(s): I48.19 - Other persistent atrial fibrillation Status: Acute Assessment and Plan: Currently on amiodarone infusion Eliquis held for anticipated lumbar puncture (5) Dysphagia: Qualifiers: Dysphagia type: unspecified Qualified Code(s): R13.10 - Dysphagia, unspecified Code(s): R13.10 - Dysphagia, unspecified Status: Acute Assessment and Plan: Patient is on modified diet at [facility] due to history of dysphagia since her stroke Currently NPO Will consult speech to re-evaluate patient in next 24 hours (6) Chronic anticoagulation: Code(s): 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 Status: Acute Assessment and Plan: Patient is on Eliquis for AFib which is currently on hold (7) UTI (urinary tract infection): Qualifiers: Encounter type: initial encounter Indwelling urinary catheter type: indwelling urethral catheter Urinary tract infection type: catheter-associated UTI Qualified Code(s): T83.511A - Infection and inflammatory reaction due to indwelling urethral catheter, initial encounter; N39.0 - Urinary tract infection, site not specified Code(s): N39.0 - Urinary tract infection, site not specified Status: Acute Assessment and Plan: See above (8) Chronic obstructive pulmonary disease: Code(s): J44.9 - Chronic obstructive pulmonary disease, unspecified Status: Chronic Assessment and Plan: Not in exacerbation Will order Bronchodilators (9) Parkinson disease: Code(s): G20 - Parkinson's disease Status: Chronic Assessment and Plan: Will resume Sinemet (10) Colitis: Code(s): K52.9 - Noninfective gastroenteritis and colitis, unspecified Status: Acute Assessment and Plan: CT scan showed Mild diffuse large bowel wall thickening suggests an infectious/inflammatory colitis. Fecal impaction/constipation. Likely stercoral colitis. Currently on meropenem Laxatives (11) Constipation: Code(s): K59.00 - Constipation, unspecified Status: Acute Ass
[2024-04-20] MEDS: levETIRAcetam IV 750 MG in DEXTROSE 5% 100 ML 430 MG IVPB ×2 (08:56→20:27)
[2024-04-20] MEDS: MEROPENEM 2 GM in SODIUM CHLORIDE 0.9% IV 100 ML 280 ML IVPB ×2 (09:05→16:35)
[2024-04-20 11:50] LABS: NT Pro B Type Natriuretic Pept 243 pg/mL (19.9-100)
[2024-04-20 11:51] LABS: Glucose Point of Care 160 mg/dl (65-105)
--- NOTE | 2024-04-20 12:01 | PCSTNOTE ---
Patient not alert enough at this time to participate in bedside swallowing evaluation per nurse. Will remain on schedule to be evaluated tomorrow.
[2024-04-20 17:00] LABS: Anion Gap 4 mmol/L (4-12); Blood Urea Nitrogen 7 mg/dL (7-17); Carbon Dioxide 28 mmol/L (22-30); Chloride 115 mmol/L (98-107); Estimated CRCL calculation 92 ml/min; Estimated Glomerular Filt Rate > 60; Glucose 131 mg/dL (65-110); Potassium 3.3 mmol/L (3.4-5.0); Sodium 147 mmol/L (137-145)
--- NOTE | 2024-04-20 18:47 | PM.TDS ---
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 DS: Admitting Diagnosis Discharge Date 04/20/2024: Admitting Diagnosis [place] disease Seizure disorder DS: Discharge Diagnosis Discharge Diagnosis (1) [place] disease: Code(s): I67.5 - [place] disease Status: Acute (2) Seizure: Code(s): R56.9 - Unspecified convulsions Status: Acute (3) Electrolyte abnormality: Code(s): E87.8 - Other disorders of electrolyte and fluid balance, not elsewhere classified Status: Acute (4) Acute hypokalemia: Code(s): E87.6 - Hypokalemia Status: Acute (5) Gastroesophageal reflux disease: Qualifiers: Esophagitis presence: esophagitis presence not specified Qualified Code(s): K21.9 - Gastro-esophageal reflux disease without esophagitis Code(s): K21.9 - Gastro-esophageal reflux disease without esophagitis Status: Acute (6) Persistent atrial fibrillation with RVR: Code(s): I48.19 - Other persistent atrial fibrillation Status: Acute (7) Diastolic heart failure: Qualifiers: Heart failure chronicity: chronic Qualified Code(s): I50.32 - Chronic diastolic (congestive) heart failure Code(s): I50.30 - Unspecified diastolic (congestive) heart failure Status: Acute (8) Dysphagia: Qualifiers: Dysphagia type: unspecified Qualified Code(s): R13.10 - Dysphagia, unspecified Code(s): R13.10 - Dysphagia, unspecified Status: Acute (9) Acute hypoxic respiratory failure: Code(s): J96.01 - Acute respiratory failure with hypoxia Status: Acute (10) CVA (cerebral vascular accident): Code(s): I63.9 - Cerebral infarction, unspecified Status: Acute (11) Coronary artery disease: Onset Date: 2018 Code(s): I25.10 - Atherosclerotic heart disease of [place] coronary artery without angina pectoris Status: Acute (12) Chronic obstructive pulmonary disease: Code(s): J44.9 - Chronic obstructive pulmonary disease, unspecified Status: Chronic (13) Chronic anemia: Code(s): D64.9 - Anemia, unspecified Status: Acute (14) Obstructive sleep apnea on CPAP: Code(s): G47.33 - Obstructive sleep apnea (adult) (pediatric); Z99.89 - Dependence on other enabling machines and devices Status: Acute (15) Parkinson disease: Code(s): G20 - Parkinson's disease Status: Chronic (16) Anemia: Code(s): D64.9 - Anemia, unspecified Status: Chronic Transfer Discharge Sum: Med Medications Active and Home Medications: Home Medications atorvastatin 80 mg tablet 80 mg PO HS 12/10/19 [History Confirmed 04/19/24] diltiazem HCl 60 mg tablet 90 mg PO QID 12/13/22 [History Confirmed 04/19/24] tamsulosin 0.4 mg capsule 0.4 mg PO QAM #30 caps 12/20/22 [Rx Confirmed 04/19/24] carbidopa 25 mg-levodopa 100 mg tablet 1 tablet PO TID #90 tabs 07/23/23 [Rx Confirmed 04/19/24] acetaminophen 325 mg tablet 650 mg PO Q6H PRN Pain 04/19/24 [History Confirmed 04/19/24] apixaban 5 mg tablet 5 mg PO BID 04/19/24 [History Confirmed 04/19/24] aspirin 81 mg capsule 81 mg PO DAILY 04/19/24 [History Confirmed 04/19/24] ipratropium 0.5 mg-albuterol 3 mg (2.5 mg base)/3 mL nebulization soln 3 ml inhalation Q4H PRN sob/wheez
[2024-04-20] MEDS: NOREPINEPHRINE 8 MG/D5W 250 ML 8 MG/250 ML BAG 3.75 MG IV CONT (18:51)
[2024-04-20] MEDS: VANCOMYCIN 1,250 MG/NS 250 ML 1,250 MG/250 ML BAG 167 MG IVPB (20:42)
[2024-04-20] MEDS: POTASSIUM CHLORIDE INJ 40 MEQ in SODIUM CHLORIDE 0.9% IV 500 ML 130 MEQ IVPB (21:55)
--- NOTE | 2024-04-20 23:21 | PC.NURSE ---
2150 Patient picked up by EMS to be transferred to [facility]. Report given to EMS. Report already given from Patricia RN to Tip ROACH at [facility]. This RN called to update patient is on the way.
[2024-04-24 17:28] LABS: West Nile Virus, IgM <0.90 index
== END 2024-04-20 21:50 | disposition short-term general hospital (02) | DRG 871 ==
LOC: ANHED 15:00 → ANHICU 20:47
PROVIDERS: Internal Medicine; Admitting Provider Internal Medicine; Emergency Provider Student in an Organized Health Care Education/Training Program; PCP Physician Assistant; Visit Provider Family Medicine
DX: A41.9 Sepsis, unspecified organism (principal); G93.41 Metabolic encephalopathy; R65.21 Severe sepsis with septic shock; J96.20 Acute and chronic respiratory failure, unspecified whether with hypoxia or hypercapnia; N39.0 Urinary tract infection, site not specified; T83.511A Infection and inflammatory reaction due to indwelling urethral catheter, initial encounter; I67.5 Moyamoya disease; E87.0 Hyperosmolality and hypernatremia; I48.19 Other persistent atrial fibrillation; I50.32 Chronic diastolic (congestive) heart failure; L89.320 Pressure ulcer of left buttock, unstageable; L89.310 Pressure ulcer of right buttock, unstageable; E87.6 Hypokalemia; F03.90 Unspecified dementia, unspecified severity, without behavioral disturbance, psychotic disturbance, mood disturbance, and anxiety; G40.909 Epilepsy, unspecified, not intractable, without status epilepticus; R13.10 Dysphagia, unspecified; I25.10 Atherosclerotic heart disease of native coronary artery without angina pectoris; E78.5 Hyperlipidemia, unspecified; F17.210 Nicotine dependence, cigarettes, uncomplicated; F32.A Depression, unspecified; F41.9 Anxiety disorder, unspecified; G20.A1 Parkinson's disease without dyskinesia, without mention of fluctuations; G47.33 Obstructive sleep apnea (adult) (pediatric); I69.391 Dysphagia following cerebral infarction; I11.0 Hypertensive heart disease with heart failure; J44.9 Chronic obstructive pulmonary disease, unspecified; K59.00 Constipation, unspecified; K52.89 Other specified noninfective gastroenteritis and colitis; R33.8 Other retention of urine; Z95.0 Presence of cardiac pacemaker; Z20.822 Contact with and (suspected) exposure to COVID-19; Z79.01 Long term (current) use of anticoagulants; Z79.82 Long term (current) use of aspirin; Z66 Do not resuscitate; Z99.89 Dependence on other enabling machines and devices; Z90.49 Acquired absence of other specified parts of digestive tract; Z98.41 Cataract extraction status, right eye; Z98.42 Cataract extraction status, left eye
CPT/HCPCS: 36415; 70450; 71045; 71275; 74177; 80048; 80053; 81001; 82533; 82803; 82948; 83605; 83690; 83735; 83880; 84100; 84443; 84484; 85025; 85610; 85730; 86140; 86788; 87040; 87086; 87088; 87637; 87641; 93005; 94640; 96361; 96365; 96366; 96367; 99285; A9270; C1751; C9113; J0133; J0282; J0290; J0692; J1836; J1953; J2185; J3370; J3475; J3480; J7030; J7040; J7060; J7120; P9047; Q9967